=== PATIENT | male | born 1940 | race Native Hawaiian/Other Pacific Islander ===

== ENCOUNTER → 2017-01-18 | Outpatient (CLI) | payer MEDICARE | LOC: LAB.O 16:53 | PROVIDERS: ATTEND Psychiatry & Neurology Neurology | DX: Z01.812 Encounter for preprocedural laboratory examination (principal) ==

== ENCOUNTER → 2017-10-09 | Outpatient (CLI) | payer MEDICARE | END | disposition home or self-care (01) | LOC: GMAH 18:12 | PROVIDERS: ATTEND Family Medicine | DX: N39.0 Urinary tract infection, site not specified (principal) ==

== ENCOUNTER → 2017-10-24 | Outpatient (CLI) | payer MEDICARE | END | disposition home or self-care (01) | LOC: GMAH 10:32 | PROVIDERS: ATTEND Family Medicine | DX: Z12.5 Encounter for screening for malignant neoplasm of prostate (principal); E11.9 Type 2 diabetes mellitus without complications; E78.4 Other hyperlipidemia | CPT/HCPCS: 84443; 84550; G0103 ==

== ENCOUNTER → 2017-11-19 | Outpatient (CLI) | payer MEDICARE | LOC: NC 18:00 | PROVIDERS: ATTEND Family Medicine | DX: I48.91 Unspecified atrial fibrillation (principal) ==

== ENCOUNTER → 2017-11-27 | Outpatient (CLI) | payer MEDICARE | LOC: NC 12:07 | PROVIDERS: ATTEND Family Medicine | DX: I48.91 Unspecified atrial fibrillation (principal) ==

== ENCOUNTER → 2017-12-04 | Outpatient (CLI) | payer MEDICARE | LOC: NC 13:45 | PROVIDERS: ATTEND Family Medicine | DX: I48.2 Chronic atrial fibrillation (principal) ==

== ENCOUNTER → 2017-12-11 | Outpatient (CLI) | payer MEDICARE | LOC: NC 12:49 | PROVIDERS: ATTEND Family Medicine | DX: I48.2 Chronic atrial fibrillation (principal); E11.9 Type 2 diabetes mellitus without complications; I10 Essential (primary) hypertension; J44.9 Chronic obstructive pulmonary disease, unspecified ==

== ENCOUNTER → 2017-12-19 | Outpatient (CLI) | payer MEDICARE | LOC: NC 13:34 | PROVIDERS: ATTEND Family Medicine | DX: I48.2 Chronic atrial fibrillation (principal) ==

== ENCOUNTER 2017-12-25 15:25 | Inpatient (IN) | payer MEDICARE ==
[2017-12-25] MEDS ORDERED: METOPROLOL TARTRATE 50 MG TAB PO ONE (15:52)
[2017-12-25] MEDS ORDERED: SODIUM CHLORIDE 0.9% 1000ML 1,000 ML IVS ONE (15:52)
[2017-12-25] MEDS ORDERED: ONDANSETRON ODT 8 MG TAB SL ONE (15:52)
--- NOTE | 2017-12-25 17:07 | RAD ---
EXAM DESCRIPTION: Abdomen Series CLINICAL HISTORY: 77 years Male ,n/v/d COMPARISON: 08/31/2012. TECHNIQUE: Frontal view chest x-ray and two views of the abdomen. FINDINGS: The study is suboptimal from patient body habitus and underpenetration. Prominent cardiac silhouette. Bilateral pleural effusions which may be partially loculated. Atelectasis/infiltrate in the lungs. No pneumothorax. No free air is identified beneath the hemidiaphragms. There are several slightly prominent loops of small bowel visualized in the midabdomen which could be from ileus or obstruction. Vascular stents in the region of the bilateral common iliac arteries. Surgical clips in the right upper quadrant. IMPRESSION: Suboptimal study from patient body habitus and underpenetration. There appear to be several slightly prominent loops of bowel in the midabdomen which could be from ileus or obstruction. Bilateral pleural effusions which may be partially loculated. Atelectasis/infiltrate in the lungs. Electronically signed by: Lennox Muñiz MD 12/25/2017 5:06 PM CDT
--- NOTE | 2017-12-25 18:19 | CT ---
EXAM DESCRIPTION: Abdoment/Pelvis w/o Contrast (accession [id number]), Chest w/o Contrast (accession [id number]) CLINICAL HISTORY: 77 years Male abn abd series concerning for obstruction versus ileus, n/v/d, effusions COMPARISON: 02/14/2016. TECHNIQUE: Contiguous axial images obtained through the chest, abdomen and pelvis without IV contrast. Reformatted images obtained. This exam was performed according to our department optimization program which includes automated exposure control, adjustment of the mA and/or kv according to patient size and/or use of iterative reconstruction technique. FINDINGS: CHEST: Mild cardiac enlargement. Coronary and aortic calcification. Scattered small mediastinal lymph nodes. Hilar regions are suboptimally evaluated without contrast. Bronchial wall thickening. Large right and small left pleural effusion. There are patchy areas of groundglass density bilaterally with atelectasis in the lung bases. Multilevel degenerative change in the spine. Abdomen pelvis: There is a low-attenuation lesion in the left lobe of the liver measuring 1.4 cm which was not clearly identified on the patient's previous examination. It did appear to be present on the examination 12/31/2014 with some nodular enhancement suggesting hemangioma. Suspect additional hemangioma in the inferior aspect of the left lobes of the liver seen on prior examinations. These are not clearly seen on today's study. There is small amount of abdominal and pelvic ascites. The spleen and pancreas appear unremarkable. No adrenal masses. There is contrast in the renal collecting systems. This study is noncontrasted. That this patient have recent catheterization? There are innumerable bilateral renal cysts. Largest on the right measures 10.5 cm. The gallbladder is absent Vascular calcification. There are stents in the distal aorta and proximal iliac arteries bilaterally. Diverticulosis in the colon without evidence of diverticulitis. Small amount nonspecific stranding is present in the mesentery and presacral space. No evidence suggest ileus or obstruction. IMPRESSION: There are patchy bilateral pulmonary infiltrates with large right and small left pleural effusion and associated wall thickening in the bronchi. Findings may reflect infectious process or developing edema Cardiac enlargement Vascular calcification Abdominal and pelvic ascites Innumerable renal cysts Low-attenuation lesion in the left lobe of the liver which is indeterminant. This was present on the examination from 2014. Suspect hemangioma. There may be an additional hemangioma in the inferior aspect of the falciform ligament which was noted on previous examinations but appears to be isodense on today's examination Residual contrast in the renal collecting systems and urinary bladder. Did this patient have a recent contrasted examination or catheterization? No evidence suggest bowel obstruction or ileus Diverticulosis without evidence of diverticulitis Electronically signed by: Liset Muñiz MD 12/25/2017 6:17 PM CDT
--- NOTE | 2017-12-25 19:01 | ED.PDOC ---
History of Present Illness - General Chief Complaint: GI Problem Stated Complaint: Diarrhea, weakness Time Seen by Provider: 12/25/17 15:31 Source: patient, family Exam Limitations: clinical condition - History of Present Illness Initial Comments: The patient is 77-year-old male presenting to the emergency room secondary to nausea and vomiting starting around 2 AM this morning with some associated diarrhea. The patient did have a couple of episodes of both while here. He is currently being tested for C. difficile here. He denies any fevers or any real abdominal pain. He does have a known history of atrial fibrillation with RVR and significant CHF with persistent pulmonary effusions. He is feeling weak and unable to get around. He is arousable. He does have numerous long-term chronic physical changes from his diabetes. No fevers. No sore throat. No runny nose. He has had a mild cough that he has recently restarted smoking. Severity: moderate Improving Factors: nothing Worsening Factors: nothing Associated Symptoms: loss of appetite, malaise, weakness Allergies/Adverse Reactions: Allergies NO KNOWN ALLERGY Allergy (Verified 12/25/17 16:55) Home Medications: Ambulatory Orders ALPRAZolam [Xanax] 0.5 mg PO DAILY 12/25/17 Amlodipine Besylate-Atorvastat [Amlodipine Besylate/Atorv 5-80 mg] 2 tab PO DAILY 12/25/17 Atorvastatin Calcium [Lipitor] 40 mg PO BEDTIME 12/25/17 Bupropion HCl [Bupropion HCl Sr] 150 mg PO DAILY 12/25/17 Citalopram Hydrobromide [Celexa] 10 mg PO DAILY 12/25/17 Furosemide 40 mg PO BID 12/25/17 Metformin HCl 850 mg PO BID 12/25/17 Metoprolol Tartrate 50 mg PO BEDTIME 12/25/17 Metoprolol Tartrate 100 mg PO DAILY 12/25/17 Pantoprazole Tablet [Protonix] 40 mg PO DAILY 12/25/17 Potassium Chloride [K-Tab] 20 meq PO DAILY 12/25/17 Sitagliptin Phosphate [Januvia] 100 mg PO DAILY 12/25/17 Tamsulosin HCl [Flomax] 0.4 mg PO DAILY 12/25/17 glyBURIDE [Diabeta] 5 mg PO BID 12/25/17 Review of Systems - Review of Systems Constitutional: States: malaise, weakness EENTM: States: no symptoms reported Respiratory: States: cough, short of breath - which is more chronic Cardiology: States: no symptoms reported Gastrointestinal/Abdominal: States: diarrhea, nausea, vomiting Genitourinary: States: no symptoms reported Musculoskeletal: States: no symptoms reported Skin: States: no symptoms reported Neurological: States: no symptoms reported Endocrine: States: no symptoms reported All other Systems: No Change from Baseline Past Medical History (General) - Patient Medical History Hx Stroke: No Hx Cardiac Disorders: Yes - A fib Hx Congestive Heart Failure: Yes Hx Hypertension: Yes Hx Diabetes: Yes Hx Gastroesophageal Reflux: Yes - Social History Hx Tobacco Use: No Family Medical History - Family History Father Family History: Unknown Living Status: Physical Exam - Physical Exam General Appearance: Alert, No apparent distress, Other - the patient is very weak. 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 Ears, Nose, Throat: normal ENT inspection, normal pharynx Neck: full range of motion, supple Respiratory: other - Rales at bilateral bases. No real increased work of breathing. Cardiovascular/Chest: no edema, tachycardia - rregular Peripheral Pulses: radial,right: 2+, radial,left: 2+ Gastrointestinal/Abdominal: non tender - morbidly obese, soft Rectal Exam: deferred Back Exam: no CVA tenderness, no vertebral tenderness Extremity: normal range of motion - for this patient, non-tender, no calf tenderness, pedal edema - =1 bilaterally Neurologic: alert, normal mood/affect, oriented x 3 Skin Exam: warm/dry Comments: Vital Signs - 24 hr 12/25/17 12/25/17 12/25/17 15:25 16:49 17:25 Temperature 95.8 F L Pulse Rate [ 140 H 141 H 135 H Left Radial] Respiratory 22 22 22 Rate Blood Pressure 147/98 154/93 144/87 [Right Arm] O2 Sat by Pulse 96 97 98 Oximetry Progress - Progress Progress: 12/25/17 19:05 the patient's a 77-year-old male presenting to the emergency room secondary to nausea and vomiting and diarrhea starting this morning. He does have numerous long-term medical problems that are significant comorbidities and in combination with this problem have essentially incapacitated him. He has received approximately 600 cc of IV fluids in compensation. We are stopping here as he does have significant CHF issues. He did receive a dose of oral metoprolol here which has slowed his heart rate down from the 140s down to around 100. He has not received any diuretics. Changes seen on the CT scan of the chest are more consistent with a CHF than a pneumonia. He has not exhibited any fevers. The patient will be admitted for observation for control of symptoms of nausea vomiting and diarrhea. Urinalysis is still pending. C. difficile is still pending. The patient will need to be reassessed in the morning to determine his functional status to see if he will be able to go back home or not. Admit for further care. No antibiotics have been given at this point. - Results/Orders Results/Orders: Laboratory Tests 12/25/17 12/25/17 12/25/17 16:00 16:00 16:00 WBC 8.3 RBC 4.87 Hgb 11.6 L Hct 36.7 L MCV 75.4 L MCH 23.8 L MCHC 31.6 L RDW 17.1 H Plt Count 302 MPV 9.5 Absolute Neuts (auto) 6.90 H Absolute Lymphs (auto) 0.90 L Absolute Monos (auto) 0.60 Absolute Eos (auto) 0.00 Absolute Basos (auto) 0.00 Neutrophils % 82.5 H Lymphocytes % 10.3 L Monocytes % 7.0 Eosinophils % 0.0 L Basophils % 0.2 PT 18.1 H INR 1.610 PTT (SP) 30.6 Sodium 138 Potassium 3.7 Chloride 104 Carbon Dioxide 25 Anion Gap 12.7 BUN 18 Creatinine 0.87 BUN/Creatinine Ratio 20.7 H Random Glucose 176 H Serum Osmolality 281.9 Calcium 9.1 Magnesium 1.8 Total Bilirubin 1.3 H AST 18 ALT 22 Alkaline Phosphatase 57 Creatine Kinase 24 L CK-MB (CK-2) 1.6 CK-MB (CK-2) % Not Reportable Troponin I < 0.02 B-Natriuretic Peptide 755.0 H* Serum Total Protein 7.4 Albumin 3.3 Globulin 4.1 H Albumin/Globulin Ratio 0.8 L Amylase 25 L Lipase 25 urinalysis is still pending. C. difficile is still pending. EKG shows atrial fibrillation with RVR at a rate of 122 bpm. He does have a mild incomplete right bundle branch block. 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 He does have T-wave inversions in leads 1 and aVL. I have no previous EKG for comparison. He does have a known history of atrial fibrillation. He is not having any chest pain. Chest x-ray shows the possibility of loculated effusions. He does have cardiomegaly. Abdominal x-ray shows possibility of a small segment of mild ileus versus obstruction. CT scan of the chest shows a large right pleural effusion and a small left pleural effusions. He does have very mild scattered patchy infiltrates could be consistent with pulmonary edema. He does have cardiomegaly.CT scan of abdomen and pelvis shows no evidence of any obstruction or ileus. He does have a small amount of ascites. He has a questionable new 1.4 cm hemangioma in the liver. He has known large chronic bilateral renal cysts. There is possibly some very mild mesentery inflammation down towards the sacrum. Departure - Departure Clinical Impression: Gastroenteritis Congestive heart failure Qualifiers: Congestive heart failure type: unspecified congestive heart failure type Congestive heart failure chronicity: acute on chronic Qualified Code(s): I50.9 - Heart failure, unspecified Disposition: Admit Patient Referrals: Pawel Cardenas MD [Primary Care Provider] - 1-2 Weeks Home Medications: Ambulatory Orders ALPRAZolam [Xanax] 0.5 mg PO DAILY 12/25/17 Amlodipine Besylate-Atorvastat [Amlodipine Besylate/Atorv 5-80 mg] 2 tab PO DAILY 12/25/17 Atorvastatin Calcium [Lipitor] 40 mg PO BEDTIME 12/25/17 Bupropion HCl [Bupropion HCl Sr] 150 mg PO DAILY 12/25/17 Citalopram Hydrobromide [Celexa] 10 mg PO DAILY 12/25/17 Furosemide 40 mg PO BID 12/25/17 Metformin HCl 850 mg PO BID 12/25/17 Metoprolol Tartrate 50 mg PO BEDTIME 12/25/17 Metoprolol Tartrate 100 mg PO DAILY 12/25/17 Pantoprazole Tablet [Protonix] 40 mg PO DAILY 12/25/17 Potassium Chloride [K-Tab] 20 meq PO DAILY 12/25/17 Sitagliptin Phosphate [Januvia] 100 mg PO DAILY 12/25/17 Tamsulosin HCl [Flomax] 0.4 mg PO DAILY 12/25/17 glyBURIDE [Diabeta] 5 mg PO BID 12/25/17 Decision To Admit - Decistion To Admit Decision to Admit Reason: Medical Nature Decision to Admit Date: 12/25/17 Decision to Admit Time: 19:08
--- NOTE | 2017-12-25 19:56 | HP ---
SUPERVISING PHYSICIAN: Felice Allen MD CHIEF COMPLAINT: Nausea, vomiting and diarrhea. HISTORY OF PRESENT ILLNESS: Mr. Zapata is a 77-year-old, male patient who presented to the Emergency Room today due to ongoing nausea and vomiting that started around 2 AM early this morning with some associated diarrhea. The was present at the time of admission and was the primary historian. She notes that the patient developed symptoms early this morning and became weaker throughout the day. She brought him to the Emergency Department due to the ongoing nausea with weakness as she was unable to assist with any lifting at home and she has had recent back surgery. The patient was denying any abdominal pain and no fevers were reported. He does have a history of recently being diagnosed with atrial fibrillation on metoprolol. Apparently, the patient had not taken any medications due to the nausea and was unable to hold any medications down, including the beta mohan which he takes for rate control. Initially when he presented to the Emergency Room, he was showing atrial fibrillation with rapid ventricular response with a rate of 122 beats per minute. He also has a history of multiple comorbidities and severe peripheral arterial disease and congestive heart failure. He has persistent pleural effusions and has actually had an aortic valve replacement and thoracotomy on the left in the past. He does currently smoke approximately one pack of cigarettes a day as he has those available. He has had multiple stents and coronary artery bypass graft as well. He does take Coumadin for his atrial fibrillation along with beta mohan. In the Emergency Room, he was found to be somewhat lethargic, but arousable and notably weak. He denied any fevers, sore throat, runny nose, shortness of breath. His laboratory studies showed he had a normal white count, but development of a left shift. Chemistries showed normal electrolytes and renal function, but elevated beta natriuretic peptide at 755. In the Emergency Room, he continued to have some nausea which did resolve nicely with some Zofran. Given that he was having a significant amount of diarrhea, a C. difficile was completed which was negative for both antigen and toxin. He then had radiographic studies that included initially an abdominal x-ray that was concerning for possible ileus or obstruction. Given his underlying comorbidities and current symptoms, an abdominopelvic CT was performed without contrast as well as CT of the chest. Per radiologic interpretation, findings were notable for patchy bilateral pleural infiltrates, larger on the right than the left, with some abdominopelvic ascites, but no evidence of bowel obstruction or ileus and no evidence of diverticulitis. Given the patient's severe weakness and lethargy and the fact that he is unable to function without a great deal of assistance, the patient is going to be placed in observation for IV fluids with concerns for viral gastroenteritis complicated by multiple comorbidities. He is placed in observation in stable condition. PAST MEDICAL HISTORY: 1. Diabetes mellitus, type 2, on insulin and oral therapy. 2. Atrial fibrillation on chronic Coumadin therapy. 3. Hypertension. 4. Peripheral vascular disease. 5. Peripheral arterial disease. 6. Cerebrovascular accident in 2008 with no reported residual effects. 7. Hyperlipidemia. 8. Chronic congestive heart failure with no current echocardiogram for review. 9. Cardiovascular disease with multiple stents, coronary artery bypass graft and a valve replacement. 10. Bladder cancer with surgical treatment with cure. 11. Gastroesophageal reflux disease. 12. Dementia. PAST SURGICAL HISTORY: 1. Tonsillectomy. 2. Cholecystectomy. 3. Bilateral iliac stents. 4. Bladder surgery for bladder cancer. 5. Multiple anal abscesses in the past. 6. Rhinoplasty for deviated septum. 7. Coronary artery bypass graft in 2008. 8. Aortic valve replacement with an Edward pericardial valve. 9. Left thoracotomy for pleural mass with no evidence of malignancy. 10. Cryoablation of intercostal nerves in conjunction with left thoracotomy for pain control. MEDICAL PROVIDERS: Cardiothoracic surgeon - Dr. Murray Chand in [place] Ex Assistant/Program Director - Dr. Isra Duffy in [place] Neurologist - Dr. Michael Aguilera, [place] Primary care physician - Dr. Pawel Cardenas [facility] care - [facility] MEDICATIONS: 1. Aricept 1 daily. 2. Fish oil 1000 mg 1 daily. 3. Cetirizine 10 mg daily. 4. Aspirin 325 mg daily. 5. Multivitamin 1 tablet daily. 6. Ascorbic acid 500 mg daily. 7. Coenzyme Q10 100 mg daily. 8. Amlodipine-valsartan 10-160 mg 1 daily. 9. Bupropion 150 mg daily. 10. Januvia 100 mg daily. 11. Xanax 0.5 mg daily. 12. DiaBeta 5 mg b.i.d. 13. Metoprolol 50 mg at bedtime. 14. Metoprolol 100 mg daily. 15. Lipitor 40 mg at bedtime. 16. K-tab 20 mEq daily. 17. Lasix 40 mg b.i.d. 18. Flomax 0.4 mg daily. 19. Metformin 850 mg b.i.d. 20. Protonix 40 mg daily. 21. Warfarin 5 mg Vwtgnh-Gnmsyow-Gfcsgykyi--Sunday. 22. Warfarin 7.5 mg Sunday-Sunday. 23. Novolin R sliding scale. ALLERGIES: NO KNOWN DRUG ALLERGIES. FAMILY HISTORY: Positive for diabetes, hypertension, cancers including prostate cancer in his father, cardiovascular disease, peripheral vascular disease. SOCIAL HISTORY: The patient lives in [place], [place]. He is . He is retired from [employer] in [place]. He does currently smoke approximately one pack a day and has for over 50 years. He drinks on rare occasions and only beer. REVIEW OF SYSTEMS: Primarily obtained from the patient's as the patient is a poor historian. CONSTITUTIONAL: Reports he has had some generalized weakness and malaise that has been worsening over the last several weeks. The patient has had approximately 15 to 20 pound weight loss in the last several months, but due to purposeful change in diet and exercising. HEENT: No reported earaches, sore throats, nasal congestion. RESPIRATORY: Chronic chronic related to smoking. No notable dyspnea or wheezing. CARDIOVASCULAR: No reported chest pain. He does have a history of atrial fibrillation. GASTROINTESTINAL: As noted in history of present illness, diarrhea, nausea and vomiting that started at 2 o'clock this morning. GENITOURINARY: Denies dysuria, hematuria or other urinary symptoms. NEUROLOGIC: No reported neurologic deficits, syncopal episodes, dizziness, ataxia. PHYSICAL EXAMINATION: VITAL SIGNS: Initially in the Emergency Department, the patient was afebrile with temperature 97.5. Heart rate 140, irregular. Blood pressure 147/98. Saturation 96% on room are. Respirations 22. On admission to the Medical/ Surgical Floor after being given metoprolol, temperature 98.9. Heart rate 98. Blood pressure 146/94. Respirations 18. Saturation 98% on 3 liters nasal cannula at rest. Admission weight 101.3. GENERAL: On examination on the Medical/Surgical Floor, the patient was resting, appeared to be in no acute distress. He was easily arousable, but is obviously hard of hearing. reports that he is at his normal baseline status in regard to his responsiveness. HEENT: Tympanic membranes clear bilaterally. Oropharynx is pink, moist without any lesions. NECK: Supple with full range of motion. No jugular venous distention noted. RESPIRATORY: There were some faint rales noted bilaterally in the bases with some decreased sounds, but no wheezing or rhonchi. CARDIOVASCULAR: Irregular rate with bedside monitor showing 98 with atrial fibrillation. ABDOMEN: Obese, soft, nontender. Positive bowel sounds. EXTREMITIES: He does have pedal edema bilaterally which is 1+ which his reportedly chronic. NEUROLOGIC: The patient is drowsy, but easily arousable and is alert and oriented times three with no obvious neurologic deficits. Cranial nerves II- XII are grossly intact. Facial features are symmetrical. Extraocular movements are within normal limits. There is no nystagmus noted. He moves all extremities ad emelina. LABORATORY: CBC on admission showed white count 8,300, hemoglobin 11.6, hematocrit 36.7, RBC indices shoe a hypochromic/microcytic presentation with platelet count 302,000, differential with left shift. Coagulation studies showed a nontherapeutic INR of 1.61 with PT 18.1, PT-T 30.6. Chemistries showed normal electrolytes with potassium 3.7, BUN 18, creatinine 0.87, glucose 176, calcium 9.1, magnesium 1.8, bilirubin slightly elevated at 1.3. All other liver functions within normal limits. Troponin less than 0.02. Elevated BNP at 755. Amylase and lipase within normal limits. Urinalysis showed 80 ketones , small amount of bilirubin, otherwise within normal limits with microscopic also within normal limits. MICROBIOLOGY: Stool cultures pending. Stool for Clostridium difficile toxin A and B was negative. RADIOLOGY: CT of the abdomen and pelvis and chest without contrast along with initial abdominal x-ray indicating a possible ileus or obstruction or CT per radiologic interpretation showing patchy bilateral pulmonary infiltrates with a large right and small left pleural effusion, associated wall thickening in the bronchi with cardiac enlargement and low attenuation lesions in the left lobe of the liver which are indeterminate, suspect possible hemangioma. There was no evidence to suggest bowel obstruction or ileus and there was diverticulosis without any evidence of diverticulitis. EKG showed atrial fibrillation with rapid ventricular response with a rate of 122 which what appears to be a incomplete right bundle branch block with some mild T-wave inversions in leads 1 and AVL, but no past EKGs for comparison with the patient having a history of atrial fibrillation and no reported current chest pains. ASSESSMENT: 1. Nausea, vomiting and diarrhea without any reported abdominal pains, acute onset, felt to be possibly secondary to a viral gastroenteritis. 2. Acute on chronic atrial fibrillation with rapid ventricular response on admission secondary to inability to hold oral medications down to include beta blockers due to #1. 3. Hypertension, poorly controlled. 4. Peripheral arterial disease with multiple lower extremities stents including bilateral iliac stents. 5. Chronic congestive heart failure with elevated beta natriuretic peptide, concerning for an exacerbation with the patient having no current echocardiogram for review and a history of previous aortic valve replacement with chronic bilateral pedal edema. 6. Hyperlipidemia. 7. Gastroesophageal reflux disease. 8. Mild dehydration secondary to #1, requiring IV fluids and close monitoring. 9. Subtherapeutic Coumadin level with the patient having a history of atrial fibrillation and on chronic Coumadin. 10. Microcytic/hypochromic anemia, likely secondary to chronic illness. 11. Left shift without any evidence of leukocytosis, likely secondary to a stress response demargination from nausea and vomiting with current stool studies negative for Clostridium difficile and stool cultures pending. 12. History of bladder cancer with surgical cure. 13. History of aortic valve replacement with an Rodrigez pericardial valve in 2008. 14. History of a left thoracotomy due to a pleural mass which was noted on pathology to be without any evidence of malignancy along with cryoablation of intercostal nerves for pain control. 15. Chronic tobacco abuse. PLAN: The patient is going to be placed in observation tonight for initiation of fluids, cautiously given his past history of congestive heart failure and elevated BNP, but showing to be vascularly dry. He was given initial bolus in the Emergency Room of 600 mL normal saline. We will restart his medications including his beta mohan which was initially given 50 mg of metoprolol in the Emergency Room that resulted in a significant decrease in heart rate and assisting with control of his ventricular rate given that he has had difficulty holding his medications down today. We will plan to repeat his laboratory in the morning. We will have him on insulin sliding scale as per protocol. We will resume his home medications as they are updated and verified and appropriate for administration. He will be on DVT prophylaxis as well as he is already on Coumadin therapy, but is not therapeutic. We will repeat a PT in the morning and if not therapeutic we will certainly initiate Lovenox as he transitions to a more therapeutic Coumadin level. We will get him a nicotine patch in the morning once he is no longer having significant nausea and vomiting. We will give him an initial clear liquid diet and advance his diet as tolerated. We will await stool cultures. We will hold off on antibiotic treatment at this point with no evidence of an infectious process other than possible viral gastroenteritis. We will anticipate his length of stay to be at least one to two days until clinically stable. We will also need to get a physical therapy evaluation to further assess his capability of returning back home safely as he is limited in his mobility and is currently being cared for with physical therapy in the outpatient setting through [facility]. It also should be noted that his is unable to assist him to any degree as she has recently had back surgery. Hopefully the patient will show good clinical response and improve significantly and be able to be discharged tomorrow or the next day. Until then, we will continue to monitor the patient closely and treat appropriately. #[id number] [facility]
[2017-12-25] MEDS ORDERED: GLUCAGON INJ 1 MG VIAL SUBCU PRN (20:48)
[2017-12-25] MEDS ORDERED: SODIUM CHLORIDE 0.9% (FLUSH) 10 ML SYG IV PRN (20:48)
[2017-12-25] MEDS ORDERED: DEXTROSE 50% 25 GM/50 ML SYG IV PRN (20:48)
[2017-12-25] MEDS ORDERED: ONDANSETRON INJ 4 MG/2 ML VIAL IV PRN (20:48)
[2017-12-25] MEDS ORDERED: ACETAMINOPHEN 325 MG TAB PO PRN (20:48)
[2017-12-25] MEDS ORDERED: NON-FORMULARY MEDICATION 1 EA MIS (Atorvastatin Calcium [Lipitor] 40 MG) PO SCH (21:00)
[2017-12-25] MEDS ORDERED: ATORVASTATIN 20 MG TAB PO ONE (21:05)
[2017-12-25] MEDS ORDERED: METOPROLOL TARTRATE 25 MG TAB ONE (21:05)
[2017-12-25] MEDS: IV SET AND CAP CHANGE INJ INJ SCH (21:07)
[2017-12-25] MEDS: METOPROLOL TARTRATE 50 MG TAB PO SCH (21:09)
[2017-12-25] MEDS: INSULIN LISPRO 100 UNITS/ML PEN SUBCU SCH (21:09)
[2017-12-25] MEDS ORDERED: KCL 20 MEQ/NS 1,000 ML IVS PRN (22:46)
[2017-12-25] MEDS: ASPIRIN TABLET 325 MG TAB PO SCH (23:10)
--- NOTE | 2017-12-25 23:27 | PCM.CORE ---
Physician DVT/VTE - Prophylaxis Currently: Patient already on anticoagulation therapy - Nurse DVT Assessment & Total Each Risk Factor Represents 3 Points: Age over 75 years, Medical PT with Hx of AL, CHF, Severe infection/sepsis Each Risk Factor Represents 1 Point: Hx of smoking past year Each Risk Factor is 1 Point: Obesity (BMI >25) DVT Assessment Score: 8 - 5 or more Very High Risk Treatments: Early Ambulation *, Sequential Compression Device Pharmacological: Warfarin daily
[2017-12-26] MEDS: INSULIN LISPRO 100 UNITS/ML PEN SUBCU SCH ×4 (07:53→20:54)
[2017-12-26] MEDS ORDERED: ENOXAPARIN SODIUM 40 MG/0.4 ML SYG SUBCU ONE (08:07)
[2017-12-26] MEDS ORDERED: AMLODIPINE BESYLATE VALSARTAN PO SCH (09:00)
[2017-12-26] MEDS ORDERED: [UNRECOGNIZED DRUG - OTHER] PO SCH (09:00)
[2017-12-26] MEDS ORDERED: ALPRAZolam 0.5 MG TAB PO SCH (09:00)
[2017-12-26] MEDS ORDERED: [UNRECOGNIZED DRUG - OTHER] PO SCH (09:00)
[2017-12-26] MEDS ORDERED: FUROSEMIDE 40 MG TAB PO SCH (10:00)
[2017-12-26] MEDS ORDERED: PANTOPRAZOLE SODIUM TAB 40 MG PO ONE (10:07)
--- NOTE | 2017-12-26 10:30 | RAD ---
EXAM DESCRIPTION: Chest,1 View CLINICAL HISTORY: Congestive heart failure COMPARISON: Chest radiograph dated August 31, 2012 IMPRESSION: Single upright portable AP view of the chest. Post cardiac valve replacement surgery with median sternotomy wires. Cardiac silhouette shows cardiomegaly with central pulmonary vascular congestion and interstitial edema. Increased hazy opacity in the bilateral lower lung zones, most compatible with pulmonary edema. Underlying infiltrate cannot be excluded. Suspected small to moderate bilateral pleural effusion. No pneumothorax. IMPRESSION: 1. Cardiomegaly with central pulmonary vascular congestion, and interstitial edema compatible with congestive heart failure. 2. Increased opacity in the bilateral lower lung zones, most compatible with pulmonary edema. Underlying infiltrate cannot be excluded. Electronically signed by: Rodney Ovalle MD 12/26/2017 10:27 AM CDT
[2017-12-26] MEDS: VALSARTAN 80 MG TAB PO SCH (10:42)
[2017-12-26] MEDS: PANTOPRAZOLE SODIUM TAB 40 MG PO SCH (10:43)
[2017-12-26] MEDS: DONEPEZIL HCL 5 MG TAB PO SCH (10:43)
[2017-12-26] MEDS: METOPROLOL TARTRATE 50 MG TAB PO SCH ×2 (10:43→20:32)
[2017-12-26] MEDS: ASCORBIC ACID 500 MG TAB PO SCH (10:43)
[2017-12-26] MEDS: amLODIPine BESYLATE 5 MG TAB PO SCH (10:43)
[2017-12-26] MEDS: TAMSULOSIN 0.4 MG CAP PO SCH (10:43)
[2017-12-26] MEDS: glyBURIDE 5 MG TAB PO SCH ×2 (10:43→16:59)
[2017-12-26] MEDS: SITagliptin 50 MG TAB PO SCH (10:43)
[2017-12-26] MEDS: POTASSIUM CHLORIDE 20 MEQ TAB PO SCH (10:43)
[2017-12-26] MEDS: CETIRIZINE HCL 10 MG TAB PO SCH (10:43)
[2017-12-26] MEDS: ASPIRIN TABLET 325 MG TAB PO SCH (10:46)
[2017-12-26] MEDS: CITALOPRAM HBR 20 MG TAB PO SCH (10:47)
[2017-12-26] MEDS ORDERED: LEVALBUTEROL NEBS 1.25 MG/3 ML VIAL NEB PRN (11:35)
[2017-12-26] MEDS ORDERED: FUROSEMIDE INJ 40 MG/4 ML VIAL IV ONE ×2 (11:37→17:00)
[2017-12-26] MEDS ORDERED: SODIUM CHL 0.9% 50ML MIN-BAG+ 50 ML IVPB ONE ×2 (11:53→20:02)
[2017-12-26] MEDS ORDERED: cefTRIAXone SODIUM 1 GM VIAL ONE ×2 (11:54→20:03)
[2017-12-26] MEDS ORDERED: WARFARIN SODIUM 2.5 MG TAB ONE (11:54)
[2017-12-26] MEDS ORDERED: WARFARIN SODIUM 5 MG TAB ONE (11:54)
[2017-12-26] MEDS ORDERED: WARFARIN SODIUM 7.5 MG PO SCH (12:00)
[2017-12-26] MEDS: cefTRIAXone SODIUM 1 GM in SODIUM CHL 0.9% 50ML MIN-BAG+ 50 ML IVPB SCH ×2 (12:04→23:55)
[2017-12-26] MEDS: guaiFENesin ER TAB 600 MG TAB PO SCH ×2 (12:04→20:31)
[2017-12-26] MEDS: WARFARIN SODIUM PO SCH ×2 (12:04)
[2017-12-26] MEDS ORDERED: SODIUM CHLORIDE 0.9% 250ML 250 ML ONE (12:50)
[2017-12-26] MEDS ORDERED: AZITHROMYCIN IV 500 MG VIAL IVPB ONE (12:50)
[2017-12-26] MEDS: AZITHROMYCIN IV 500 MG in SODIUM CHLORIDE 0.9% 250ML 250 ML IVPB SCH (13:18)
--- NOTE | 2017-12-26 13:44 | PN ---
SUPERVISING PHYSICIAN: Felice Allen MD DATE: 12/26/17 SUBJECTIVE: The patient feels a little bit better this morning. He is much more alert and was able to get up to the bedside commode with assistance. He reports he has had a little bit of shortness of breath and a more productive cough than when he came in, but no chest pains or palpitations or any continued nausea or vomiting. He had one episode of diarrhea this morning. He does remain afebrile. OBJECTIVE: VITAL SIGNS: Temperature 99.9. Pulse 104. Blood pressure 116/70. Respirations 20. Saturation 96% on nasal cannula at rest on 2 liters. I&Os show positive balance of 600 with 1150 in, 550 out. Weight 101.3 kg. CHEST: He continues to have decreased breath sounds with some rhonchi heard, more prominent on the right than the left and more posterior. No wheezing or rales. HEART: Regular rate and rhythm showing a better controlled rate with monitor showing continued atrial fibrillation at 104 beats per minute. ABDOMEN: Obese, but soft and nontender. Positive bowel sounds. No rebound tenderness, no guarding. EXTREMITIES: Bilateral pedal edema at 1+. NEUROLOGIC: He is much more alert this morning and is oriented times three. LABORATORY: White count 10,700 with hemoglobin 11.4 and hematocrit 36.7 with a microcytic/hypochromic presentation and a platelet count of 307,000 with a differential showing a continued left shift. Coagulation studies this morning show INR still nontherapeutic at 1.66 with PT 18.7. Chemistries show normal electrolytes with potassium 3.9, BUN 18, creatinine 0.75. Blood sugars have been between 150 and 182. Calcium 9.0, bilirubin still elevated at 1.4. Liver functions all otherwise within normal limits. MICROBIOLOGY: Blood cultures pending. Stool cultures pending. One stool for leukocyte esterase which was positive and C. difficile toxin A and B was negative. RADIOLOGY: Repeat chest x-ray this morning per radiologic interpretation shows cardiomegaly with central pulmonary vascular congestion and interstitial edema pattern with congestive heart failure and increased opacities in the bilateral lower lung lacey, most compatible with pulmonary edema, but underlying infiltrate cannot be excluded. ASSESSMENT: 1. Nausea, vomiting and diarrhea on admission without any abdominal pains, acute onset, likely secondary to a viral gastroenteritis, showing some slight improvement with initiation of treatment to include IV fluids. 2. Acute on chronic atrial fibrillation with rapid ventricular response on admission secondary to inability to hold oral medications down to include beta blockers due to #1, showing better control now with continued beta mohan administration including metoprolol. 3. Bilateral pleural effusions, consistent with pulmonary edema, but unable to fully exclude infiltrative process which would be concerning for community acquired pneumonia with the patient showing a more productive cough. 4. Hypertension, poorly controlled. 5. Peripheral arterial disease with multiple lower extremity stents including bilateral iliac stents. 6. Chronic congestive heart failure with elevated beta natriuretic peptide on admission with radiographic studies indicating some pulmonary edema with concerns for exacerbation with the patient having no current echocardiogram for review, but having a history of previous aortic valve replacement with chronic bilateral pedal edema with a new onset in the last month of atrial fibrillation. 7. Hyperlipidemia. 8. Gastroesophageal reflux disease. 9. Mild dehydration secondary to #1, showing some improvement, but requiring close close monitoring due to underlying congestive heart failure exacerbation. 10. Subtherapeutic Coumadin level with the patient having a history of atrial fibrillation and on chronic Coumadin, requiring initiation of Lovenox while the patient becomes more therapeutic. 11. Microcytic/hypochromic anemia, likely secondary to chronic illness. 12. History of bladder cancer with surgical cure. 13. History of aortic valve replacement with an Rodrigez pericardial valve in 2008. 14. History of a left thoracotomy due to a pleural mass which was noted on pathology report to be without any evidence of malignancy along with cryoablation of intercostal nerves for pain control in 2008. 15. History of coronary artery bypass graft in 2008. 16. Chronic tobacco abuse. PLAN: Given the findings on x-ray and the productive cough with some mild shortness of breath, we will go ahead and initiate treatment for concern for an underlying pneumonia process, likely community acquired. He will be started on antibiotics to include Rocephin and azithromycin as well as bronchodilators with Xopenex and bronchial hygiene with chest percussive therapy and incentive spirometry. He has been started on Lovenox 40 mg q.24h. as he continues to be below therapeutic levels in regard to his Coumadin levels. We will continue to monitor his Coumadin and administer 7.5 mg a day and change treatment plan with Lovenox once the patient has become more therapeutic. We will still awaiting physical therapy assessment today, but the patient was able to actually get up with maximum assist to the bedside commode. We will await stool cultures to further target antibiotic therapy as needed based on those results and monitor blood cultures closely as well as sputum cultures. He will be saline locked today and started on a little more aggressive diuresis with Lasix to include in addition to his p.o. medicine this morning, additional 40 IV and another 40 at 1700 and reevaluate in the morning to assist in treatment of the underlying congestive heart failure exacerbation and bilateral pleural effusions. We will anticipate at least another 24 hours of observation with consideration of possible full admission criteria as the patient has shown some further clinical complications with questionable pneumonia and multiple comorbidities requiring initiation of antibiotic therapy. Until discharge, we will continue to monitor the patient closely and treat appropriately. Certainly if the patient is clinically stable enough tomorrow, anticipate possibly discharging to have close clinical followup with Dr. Cardenas, his primary care provider. #[id number] [facility]
[2017-12-26] MEDS: LEVALBUTEROL NEBS 1.25 MG/3 ML VIAL NEB SCH ×2 (15:45→23:50)
[2017-12-26] MEDS: NON-FORMULARY MEDICATION 1 EA MIS (Metformin Hcl [Metformin Hcl] 850 MG) PO SCH (16:59)
[2017-12-26] MEDS: ATORVASTATIN 20 MG TAB PO SCH (20:31)
[2017-12-26] MEDS: ALPRAZolam 0.5 MG TAB PO SCH (20:32)
[2017-12-27] MEDS: PANTOPRAZOLE SODIUM TAB 40 MG PO SCH (06:30)
--- NOTE | 2017-12-27 07:09 | RAD ---
EXAM: AP CHEST RADIOGRAPH CLINICAL INDICATION: Respiratory distress. Mechanical ventilation. Evaluate lines and tubes. COMPARISON: Compared to yesterday's chest radiograph performed at 1007 hours. FINDINGS: Cardiac size remains enlarged. Improving pulmonary congestion and right pleural effusion. Unchanged sequela of remote cardiac surgery with intact sternal wire sutures. IMPRESSION: Improving probable congestive failure. No pneumothorax. Electronically signed by: Edwin Elise MD 12/27/2017 7:07 AM CDT
[2017-12-27] MEDS: INSULIN LISPRO 100 UNITS/ML PEN SUBCU SCH ×4 (07:33→20:57)
[2017-12-27] MEDS: glyBURIDE 5 MG TAB PO SCH ×2 (08:21→16:53)
[2017-12-27] MEDS: POTASSIUM CHLORIDE 20 MEQ TAB PO SCH ×2 (08:21→16:53)
[2017-12-27] MEDS: NON-FORMULARY MEDICATION 1 EA MIS (Metformin Hcl [Metformin Hcl] 850 MG) PO SCH ×2 (08:21→16:53)
[2017-12-27] MEDS ORDERED: NON-FORMULARY MEDICATION 1 EA MIS (Alprazolam [Alprazolam Er] 0.5 MG) PO SCH (09:00)
[2017-12-27] MEDS: SITagliptin 50 MG TAB PO SCH (09:11)
[2017-12-27] MEDS: ASCORBIC ACID 500 MG TAB PO SCH (09:11)
[2017-12-27] MEDS: CETIRIZINE HCL 10 MG TAB PO SCH (09:12)
[2017-12-27] MEDS: VALSARTAN 80 MG TAB PO SCH (09:12)
[2017-12-27] MEDS: ASPIRIN TABLET 325 MG TAB PO SCH (09:12)
[2017-12-27] MEDS: DONEPEZIL HCL 5 MG TAB PO SCH (09:12)
[2017-12-27] MEDS: METOPROLOL TARTRATE 50 MG TAB PO SCH ×2 (09:12→20:57)
[2017-12-27] MEDS: TAMSULOSIN 0.4 MG CAP PO SCH (09:12)
[2017-12-27] MEDS: amLODIPine BESYLATE 5 MG TAB PO SCH (09:12)
[2017-12-27] MEDS: CITALOPRAM HBR 20 MG TAB PO SCH (09:12)
[2017-12-27] MEDS: guaiFENesin ER TAB 600 MG TAB PO SCH ×2 (09:12→20:57)
[2017-12-27] MEDS: LEVALBUTEROL NEBS 1.25 MG/3 ML VIAL NEB SCH ×2 (09:58→15:58)
[2017-12-27] MEDS: BIFIDOBACTERIUM INFANTIS 4 MG CAP PO SCH ×2 (10:28→20:57)
[2017-12-27] MEDS: FUROSEMIDE 40 MG TAB PO SCH ×2 (10:28→16:53)
--- NOTE | 2017-12-27 11:05 | PN ---
DATE: 12/27/17 SUBJECTIVE: The patient is sitting up in the bed with some elevated jugular venous distention persisting though stating that his breathing is slightly better after significant diuresis was assisted by placement of a Stanley catheter because of bladder outlet obstructive symptoms. Stanley was placed last evening and over 600 mL of fluid was removed with the patient unable to pass any large amounts and requiring the catheterization to help remedy the obstructive uropathy. Appetite is only fair. He lives at home with his who has significant disabilities having had back surgery in the past. In transferring the patient to a bedside commode for a bowel movement, he required a 3-person assist. He was quite dyspneic and was on 3 liters nasal cannula oxygen and was eventually noted even on 3 liters to have only a 96% saturation. We will continue to monitor and titrate oxygen use to shoot for the 92% or 93% instead of higher saturations. The patient still has some cough, but slightly improved. OBJECTIVE: VITAL SIGNS: Afebrile. Pulse is up to 135 with a rapid atrial fibrillation noted, showing some slight slowing as he receives his morning dose of medicines. Rhythm is that of an atrial fibrillation with a rapid ventricular rate. Blood pressure 138/92. Saturation up to 100% nasal cannula, adjusted from 3 liters down to 2 with continued followup suggested. LUNGS: Some expiratory slowing with history of chronic obstructive pulmonary disease from chronic smoking as well as congestive heart failure. HEART: Tones are somewhat distant, rapid, irregular rate with atrial fibrillation with rapid ventricular response on rhythm strips on telemetry. ABDOMEN: Slightly distended. The patient needing to go to the bathroom, but having difficulty passing stool. Less diarrhea stools noted. Stool culture is pending. RADIOLOGY: Chest x-ray shows some improvement from yesterday with less congestive failure with pulmonary edema noted and no pneumothorax. LABORATORY: INR is up to 2.2 from 1.66 yesterday after reinstituting his Coumadin and these will be reinstituted at his home levels with close followup suggested. White count is up o 12,100. Hemoglobin 10.7 with a microcytic/ hypochromic presentation. Chemistries do show potassium 3.7, BUN 14, glucose 90 fasting. Liver enzymes normal. Albumin 3.2. Urinalysis yesterday was generally clean. As stated before sputum culture and stool culture are pending with blood cultures negative to this point. Fecal leukocytes are positive. ASSESSMENT: 1. Chronic congestive heart failure with an acute exacerbation with elevated beta natriuretic peptide and pulmonary edema with elevated jugular venous distention present, showing some radiographic and clinical improvement. Undetermined etiology. Awaiting echocardiographic review. 2. Acute episode of nausea, vomiting and diarrhea with abdominal discomfort, possible viral gastroenteritis, showing some clinical improvement after GI rest and IV fluid support, now with dietary intervention and cutting back on fluids because of pulmonary edema state. 3. Chronic atrial fibrillation with an acute exacerbation with associated rapid ventricular response requiring further modification and intervention from a medical standpoint to assist with rate control utilizing metoprolol tartrate at this time. 4. Bilateral pleural effusions, probably consistent with pulmonary edema and congestive heart failure presentation, yet possibility of an underlying community acquired pneumonia currently being treated with associated productive cough with sputum cultures pending. 5. Hypertension, poorly controlled. 6. History of peripheral vascular disease with lower extremity stents including bilateral iliac stents. 7. History of hyperlipidemia. 8. Gastroesophageal reflux disease. 9. Significant disability with the patient unable to fully care for himself without danger of significant falls. 10. Mild dehydration secondary to his nausea, vomiting and diarrhea, showing some improvement, yet significant disability currently noted. 11. Chronic Coumadin administration with subtherapeutic, approaching therapeutic levels with reinstitution of Coumadin p.o. with Lovenox bridge instituted yesterday short term. 12. Chronic anemia with a microcytic/hypochromic presentation. 13. History of bladder cancer with surgical approach. 14. Acute bladder outlet obstruction requiring Stanley catheter and will require ongoing urological intervention under Dr. Cardenas's supervision. 15. History of aortic valve replacement with an Rodrigez replacement valve in 2008. 16. History of a left thoracotomy due to a pleural mass which with no evidence of malignancy, associated with cryoablation of intercostal nerves because of chronic pain, performed in 2008. 17. History of coronary artery disease with a bypass graft in 2008. 18. Chronic tobacco abuse, encouraged to stop. PLAN: With the patients inability to safely transfer to a chair or bedside commode and requiring significant help, the patient is going to require ongoing physical therapy, strengthening and activities of daily living training before he is able to safely return home. Physical therapy and Social Service to evaluate for the possibility of transfer to a rehab hospital at [facility] or at [place] for continued rehab until improved to a safe point of returning home. Continue with Coumadin with INR of 1.22 noted. Add probiotics. Decrease fluids consumed. Increase p.o. Lasix. Increase activity with help. Ambulation when strong enough to help determine oxygen needs on exertion, yet avoid over oxygenation. The patient is admitted to the hospital because of the complication factors. Observe pulse rate with rapid atrial fibrillation requiring ongoing rate control medication adjustments. Followup with Dr. Cardenas after stabilization. #[id number] [facility] [place]
[2017-12-27] MEDS ORDERED: SODIUM CHL 0.9% 50ML MIN-BAG+ 50 ML IVPB ONE ×2 (12:31→20:08)
[2017-12-27] MEDS ORDERED: cefTRIAXone SODIUM 1 GM VIAL ONE ×2 (12:31→20:09)
[2017-12-27] MEDS: WARFARIN SODIUM 5 MG TAB PO SCH (12:31)
[2017-12-27] MEDS: cefTRIAXone SODIUM 1 GM in SODIUM CHL 0.9% 50ML MIN-BAG+ 50 ML IVPB SCH (12:33)
[2017-12-27] MEDS ORDERED: SODIUM CHLORIDE 0.9% 250ML 250 ML ONE (13:15)
[2017-12-27] MEDS ORDERED: AZITHROMYCIN IV 500 MG VIAL IVPB ONE (13:16)
[2017-12-27] MEDS: AZITHROMYCIN IV 500 MG in SODIUM CHLORIDE 0.9% 250ML 250 ML IVPB SCH (13:23)
[2017-12-27] MEDS: ALPRAZolam 0.5 MG TAB PO SCH (20:57)
[2017-12-27] MEDS: ATORVASTATIN 20 MG TAB PO SCH (20:57)
[2017-12-28] MEDS: cefTRIAXone SODIUM 1 GM in SODIUM CHL 0.9% 50ML MIN-BAG+ 50 ML IVPB SCH ×3 (00:11→23:56)
[2017-12-28] MEDS: LEVALBUTEROL NEBS 1.25 MG/3 ML VIAL NEB SCH ×3 (00:36→16:00)
[2017-12-28] MEDS: PANTOPRAZOLE SODIUM TAB 40 MG PO SCH (06:38)
[2017-12-28] MEDS ORDERED: SODIUM CHL 0.9% 50ML MIN-BAG+ 50 ML IVPB ONE ×2 (07:23→20:04)
[2017-12-28] MEDS ORDERED: SODIUM CHLORIDE 0.9% 250ML 0 ML ONE (07:23)
[2017-12-28] MEDS ORDERED: WARFARIN SODIUM 5 MG TAB ONE (07:24)
[2017-12-28] MEDS ORDERED: cefTRIAXone SODIUM 1 GM VIAL ONE ×2 (07:25→20:05)
[2017-12-28] MEDS ORDERED: WARFARIN SODIUM 2.5 MG TAB ONE (07:25)
[2017-12-28] MEDS ORDERED: AZITHROMYCIN IV 500 MG VIAL IVPB ONE (07:25)
[2017-12-28] MEDS: INSULIN LISPRO 100 UNITS/ML PEN SUBCU SCH ×4 (07:39→21:19)
[2017-12-28] MEDS: glyBURIDE 5 MG TAB PO SCH ×2 (07:43→16:55)
[2017-12-28] MEDS: POTASSIUM CHLORIDE 20 MEQ TAB PO SCH ×2 (07:43→16:55)
[2017-12-28] MEDS: NON-FORMULARY MEDICATION 1 EA MIS (Metformin Hcl [Metformin Hcl] 850 MG) PO SCH ×2 (07:43→16:58)
[2017-12-28] MEDS: SITagliptin 50 MG TAB PO SCH (09:17)
[2017-12-28] MEDS: VALSARTAN 80 MG TAB PO SCH (09:19)
[2017-12-28] MEDS: CITALOPRAM HBR 20 MG TAB PO SCH (09:19)
[2017-12-28] MEDS: ASPIRIN TABLET 325 MG TAB PO SCH (09:20)
[2017-12-28] MEDS: DONEPEZIL HCL 5 MG TAB PO SCH (09:20)
[2017-12-28] MEDS: amLODIPine BESYLATE 5 MG TAB PO SCH (09:20)
[2017-12-28] MEDS: TAMSULOSIN 0.4 MG CAP PO SCH (09:21)
[2017-12-28] MEDS: BIFIDOBACTERIUM INFANTIS 4 MG CAP PO SCH ×2 (09:21→20:27)
[2017-12-28] MEDS: guaiFENesin ER TAB 600 MG TAB PO SCH ×2 (09:21→20:27)
[2017-12-28] MEDS: ASCORBIC ACID 500 MG TAB PO SCH (09:21)
[2017-12-28] MEDS: FUROSEMIDE 40 MG TAB PO SCH ×2 (09:22→16:55)
[2017-12-28] MEDS: CETIRIZINE HCL 10 MG TAB PO SCH (09:23)
[2017-12-28] MEDS: METOPROLOL TARTRATE 50 MG TAB PO SCH ×2 (09:37→20:27)
[2017-12-28] MEDS ORDERED: ONDANSETRON 4 MG TAB PO PRN (10:34)
[2017-12-28] MEDS: WARFARIN SODIUM PO SCH ×2 (11:58)
[2017-12-28] MEDS: AZITHROMYCIN 250 MG TAB PO SCH (12:50)
[2017-12-28] MEDS: DUTASTERIDE 0.5 MG CAP PO SCH (14:03)
--- NOTE | 2017-12-28 16:47 | PN ---
DATE: 12/28/17 SUBJECTIVE: The patient is sitting up in the chair. He has less jugular venous distention today. Still very tired and requiring significant assistance , though slightly improved compared to yesterday. Discussed the importance of avoiding over hydration by drinking too much fluid, especially with his recent episode of pulmonary edema. His treatment for underlying pneumonia continues. Physical Therapy has suggested and we are now working, and the patient has been accepted to [facility] by tomorrow. His condition is discussed with Dr. Davis at [phone]. The patient will require ongoing care and support during this time of getting stronger to the point where he will be able to safely return home. OBJECTIVE: Afebrile, pulse 91, pulse oximetry 97% on 2 liters nasal cannula, blood pressure 105/72. Weight is pending. GENERAL: The patient is much more alert, has much improved memory. His is present helping to care for him which is helpful. The patient is very much willing to continue with rehabilitation at [facility] so that he will be able to go home when safe. LUNGS: Have some diminished breath sounds and some rhonchi in both bases. Clearing compared to yesterday. ABDOMEN: Obese yet soft. HEART: Tones are somewhat distant, somewhat rapid. LABORATORY: Blood sugar this morning was 125 fasting. Repeat lab ordered tomorrow morning. RADIOLOGY: Chest x-ray to be repeated as well. ASSESSMENT: 1. Chronic congestive heart failure with an acute exacerbation with elevated beta natriuretic peptide and pulmonary edema with elevated jugular venous distention present, showing some radiographic and clinical improvement. Undetermined etiology. Awaiting echocardiographic review. 2. Acute episode of nausea, vomiting and diarrhea with abdominal discomfort, possible viral gastroenteritis, showing some clinical improvement after GI rest and IV fluid support, now with dietary intervention and cutting back on fluids because of pulmonary edema state. 3. Chronic atrial fibrillation with an acute exacerbation with associated rapid ventricular response requiring further modification and intervention from a medical standpoint to assist with rate control utilizing metoprolol tartrate at this time. 4. Bilateral pleural effusions, probably consistent with pulmonary edema and congestive heart failure presentation, yet possibility of an underlying community acquired pneumonia currently being treated with associated productive cough with sputum cultures pending. 5. Hypertension, poorly controlled. 6. History of peripheral vascular disease with lower extremity stents including bilateral iliac stents. 7. History of hyperlipidemia. 8. Gastroesophageal reflux disease. 9. Significant disability with the patient unable to fully care for himself without danger of significant falls. 10. Mild dehydration secondary to his nausea, vomiting and diarrhea, showing some improvement, yet significant disability currently noted. 11. Chronic Coumadin administration with subtherapeutic, approaching therapeutic levels with reinstitution of Coumadin p.o. with Lovenox bridge instituted yesterday short term. 12. Chronic anemia with a microcytic/hypochromic presentation. 13. History of bladder cancer with surgical approach. 14. Acute bladder outlet obstruction requiring Stanley catheter and will require ongoing urological intervention under Dr. Cardenas's supervision. 15. History of aortic valve replacement with an Rodrigez replacement valve in 2008. 16. History of a left thoracotomy due to a pleural mass which with no evidence of malignancy, associated with cryoablation of intercostal nerves because of chronic pain, performed in 2008. 17. History of coronary artery disease with a bypass graft in 2008. 18. Chronic tobacco abuse, encouraged to stop. PLAN: After discussing with [facility], it is anticipated that by tomorrow as condition improves will be able to transfer the patient after discharge from our hospital to be admitted at [facility] for continued rehab before being able to go home when safe. Because of the catheter and the bladder outlet obstruction probably from the prostate, the patient will be started on Avodart daily in an effort to reduce the swelling of the prostate so that the catheter can eventually be evaluated by a urologist, either Dr. Zepeda or Dr. Grigsby , who will be able to help follow him up at their [place] clinic in the future. The previous urologist has performed removal surgically of bladder cancer and had cystoscopy most recently in June of last year, and scheduled for reevaluation this next fall. Anticipate transfer to [facility] tomorrow for continued rehabilitation. Special attention to avoiding over hydration by fluid restrictions and continue antibiotic treatment for the underlying pneumonia with reevaluation in the morning. #[id number] [facility]
[2017-12-28] MEDS: ATORVASTATIN 20 MG TAB PO SCH (20:27)
[2017-12-28] MEDS: IV SET AND CAP CHANGE INJ INJ SCH (20:27)
[2017-12-28] MEDS: ALPRAZolam 0.5 MG TAB PO SCH (20:27)
[2017-12-29] MEDS: LEVALBUTEROL NEBS 1.25 MG/3 ML VIAL NEB SCH ×2 (00:42→07:52)
[2017-12-29] MEDS: PANTOPRAZOLE SODIUM TAB 40 MG PO SCH (06:41)
[2017-12-29] MEDS: INSULIN LISPRO 100 UNITS/ML PEN SUBCU SCH ×2 (08:30→11:39)
[2017-12-29] MEDS: DONEPEZIL HCL 5 MG TAB PO SCH (08:35)
[2017-12-29] MEDS: METOPROLOL TARTRATE 50 MG TAB PO SCH (08:35)
[2017-12-29] MEDS: glyBURIDE 5 MG TAB PO SCH (08:35)
[2017-12-29] MEDS: SITagliptin 50 MG TAB PO SCH (08:35)
[2017-12-29] MEDS: BIFIDOBACTERIUM INFANTIS 4 MG CAP PO SCH (08:35)
[2017-12-29] MEDS: VALSARTAN 80 MG TAB PO SCH (08:36)
[2017-12-29] MEDS: ASCORBIC ACID 500 MG TAB PO SCH (08:36)
[2017-12-29] MEDS: guaiFENesin ER TAB 600 MG TAB PO SCH (08:36)
[2017-12-29] MEDS: CETIRIZINE HCL 10 MG TAB PO SCH (08:36)
[2017-12-29] MEDS: AZITHROMYCIN 250 MG TAB PO SCH (08:36)
[2017-12-29] MEDS: CITALOPRAM HBR 20 MG TAB PO SCH (08:36)
[2017-12-29] MEDS: FUROSEMIDE 40 MG TAB PO SCH (08:37)
[2017-12-29] MEDS: amLODIPine BESYLATE 5 MG TAB PO SCH (08:37)
[2017-12-29] MEDS: POTASSIUM CHLORIDE 20 MEQ TAB PO SCH (08:37)
[2017-12-29] MEDS: ASPIRIN TABLET 325 MG TAB PO SCH (08:37)
[2017-12-29] MEDS: TAMSULOSIN 0.4 MG CAP PO SCH (08:37)
[2017-12-29] MEDS: DUTASTERIDE 0.5 MG CAP PO SCH (08:37)
[2017-12-29] MEDS: NON-FORMULARY MEDICATION 1 EA MIS (Metformin Hcl [Metformin Hcl] 850 MG) PO SCH (08:46)
[2017-12-29 10:56] VITALS: BP 171/56; TEMP 97.6; O2SAT 98
[2017-12-29] MEDS ORDERED: cefTRIAXone SODIUM 1 GM VIAL ONE (11:26)
[2017-12-29] MEDS ORDERED: SODIUM CHL 0.9% 50ML MIN-BAG+ 50 ML IVPB ONE (11:26)
[2017-12-29] MEDS: cefTRIAXone SODIUM 1 GM in SODIUM CHL 0.9% 50ML MIN-BAG+ 50 ML IVPB SCH (11:39)
[2017-12-29] MEDS: WARFARIN SODIUM 5 MG TAB PO SCH (11:39)
--- NOTE | 2017-12-31 09:33 | DS ---
SUPERVISING PHYSICIAN: Felice Allen MD DISCHARGE DIAGNOSIS: 1. Chronic congestive heart failure with an acute exacerbation with elevated beta natriuretic peptide on admission with pulmonary edema with elevated jugular venous distention, showing improvement, both radiographically and clinically with treatment with no current echocardiogram for review with undetermined etiology. 2. Acute episode of nausea, vomiting and diarrhea with abdominal discomfort, possible viral gastroenteritis, showing some clinical improvement after GI rest and IV fluid fluids. 3. Chronic atrial fibrillation with an acute exacerbation with associated rapid ventricular response requiring further initially of medical management with good rate control with metoprolol prior to discharge. 4. Bilateral pleural effusions, probably consistent with pulmonary edema and congestive heart failure presentation with questionable community acquired pneumonia, showing good improvement with treatment with cultures showing a final result with Klebsiella pneumoniae that was sensitive to all but ampicillin. 5. History of peripheral vascular disease with lower extremity stents including bilateral iliac stents. 6. History of hyperlipidemia. 7. Gastroesophageal reflux disease. 8. Significant disability with the patient unable to fully care for himself without danger of significant falls requiring further treatment with long-term physical therapy through [facility]. 9. Mild dehydration secondary to his nausea, vomiting and diarrhea, showing improvement with fluids. 10. Chronic Coumadin administration with subtherapeutic, approaching therapeutic levels with reinstitution of Coumadin p.o. with Lovenox continued at discharge. 11. Chronic anemia with a microcytic/hypochromic presentation, likely of chronic illness. 12. History of bladder cancer with surgical approach. 13. Acute bladder outlet obstruction requiring Stanley catheter and ongoing urologic management under Dr. Cardenas's supervision once discharged. 14. History of a left thoracotomy due to a pleural mass which with no evidence of malignancy, associated with cryoablation of intercostal nerves because of chronic pain, performed in 2008. 15. History of coronary artery disease with a bypass graft in 2008. 16. Chronic tobacco abuse, encouraged to stop. REASON FOR HOSPITALIZATION: Mr. Zapata is a 77-year-old, male patient who presented to the Emergency Room on 12/27/17 due to ongoing nausea and vomiting that started around 2 AM the morning of admission with some associated diarrhea. The was present at the time of admission and was the primary historian. She notes that the patient developed symptoms earlier that morning and became weaker throughout the day. She brought him to the Emergency Department due to the ongoing nausea with weakness as she was unable to assist with any lifting at home and she has had recent back surgery. The patient was denying any abdominal pain and no fevers were reported. He does have a history of recently being diagnosed with atrial fibrillation on metoprolol. Apparently , the patient had not taken any medications due to the nausea and was unable to hold any medications down, including the beta mohan which he takes for rate control. Initially when he presented to the Emergency Room, he was showing atrial fibrillation with rapid ventricular response with a rate of 122 beats per minute. He also has a history of multiple comorbidities and severe peripheral arterial disease and congestive heart failure. He has persistent pleural effusions and has actually had an aortic valve replacement and thoracotomy on the left in the past. He does currently smoke approximately one pack of cigarettes a day as he has those available. He has had multiple stents and coronary artery bypass graft as well. He does take Coumadin for his atrial fibrillation along with beta mohan. In the Emergency Room, he was found to be somewhat lethargic, but arousable and notably weak. He denied any fevers, sore throat, runny nose, shortness of breath. His laboratory studies showed he had a normal white count, but development of a left shift. In the Emergency Room, he continued to have some nausea which did resolve nicely with some Zofran. Given that he was having significant amount of diarrhea, C. difficile was completed which was negative for both antigen and toxin. He then had radiographic studies that included initially an abdominal x-ray that was concerning for possible ileus or obstruction. Given his underlying comorbidities and current symptoms, an abdominopelvic CT was performed without contrast as well as CT of the chest. Per radiologic interpretation, findings were notable for patchy bilateral pleural infiltrates, larger on the right than the left, with some abdominopelvic ascites, but no evidence of bowel obstruction or ileus and no evidence of diverticulitis. Given the patient's severe weakness and lethargy and the fact that he was unable to function without a great deal of assistance, the patient was going placed in observation initially for IV fluids with concerns for viral gastroenteritis complicated by multiple comorbidities. He was placed in observation in stable condition. LABORATORY: On admission, white count 8,300. It did go up to 12,100, but at discharge it was down to 9,600. Hemoglobin and hematocrit were stable at 10.9 and 34.9. Platelet count 266,000. Differential did show a left shift, but this had resolved prior to discharge. Coagulation studies showed initially an INR subtherapeutic at 1.61. He was initiated on his p.o. medications in regard to the Coumadin and prior to discharge, he had shown improvement at therapeutic level up to 2.21. Chemistries on admission were within normal limits with electrolytes showing BUN 18, creatinine 0.7 with bilirubin slightly elevated at 1.3, magnesium 1.8. Troponin less than 0.02, BNP 755. Blood sugars ranged from 150s to 160s. Prior to discharge, electrolytes normalized. BUN was 14, creatinine 0.79, calcium 8.8. Repeat urinalysis after Stanley placement for urinary retention was within normal limits. MICROBIOLOGY: Sputum culture showed Klebsiella pneumoniae that was sensitive to all but ampicillin. He had two sets of blood cultures negative after 4 days. Stool culture showed no enteric pathogens isolated at 72 hours and stool leukocytes were positive. C. difficile was negative for A and B. RADIOLOGY: Initial abdominal x-ray in the Emergency Department per radiologic interpretation showed suboptimal study due to body habitus. There were several prominent loops of bowels in the mid abdomen which could be from ileus or obstruction. This was followed up with abdominopelvic CT without contrast and per radiologic interpretation there was no evidence to suggest bowel obstruction or ileus. There was diverticulosis without evidence diverticulitis. Please see that report for full details. He also had several chest x-rays with the final being on 12/27/17 and per radiologic interpretation showed improvement in probably congestive failure, but no pneumothorax. HOSPITAL COURSE: Mr. Zapata was admitted as noted on 12/27/17 for concerns for viral gastroenteritis. He did show initial good response to treatment, but closer to discharge the patient was improving, but he was requiring ongoing physical therapy. Therefore, arrangements were made for physical therapy from [facility] to visit with the patient and the patient's family in regard to discharge planning. He was treated for his pneumonia with antibiotics that included both Rocephin and azithromycin. He was also given diuretics with Lasix and showed good clinical improvement. It was felt he had clinically improved well enough to continue with outpatient treatment plan. PLAN: Mr. Zapata was discharged on 12/29/17 with instructions to followup closely with Dr. Cardenas in the following week once discharged from [facility]. He was discharged and transferred via private vehicle to [facility] for continued rehabilitation. Diet at discharge was diabetic diet. Activity per physical therapy. New prescriptions were provided at discharge and included: 1. Align 4 mg daily. 2. Cefdinir 300 mg twice daily, #14. 3. Avodart 0.5 mg daily, #30. 4. Guaifenesin 600 mg tablets twice daily. 5. Xopenex treatment as needed, #30. 6. Xopenex nebulizer treatments 1.25 mg every 8 hours for respiratory failure, #30. Condition at discharge was stable. He was transferred via private vehicle. #[id number] [facility]
== END 2017-12-29 12:40 | DRG 291 ==
LOC: ER 15:25 → MS 19:56 → OBSVTOIN 19:56 → INTOOBSV 19:56 → OBSVTOIN 12-27 08:58
PROVIDERS: ADMIT Nurse Practitioner Family; ATTEND Nurse Practitioner Family
DX: I11.0 Hypertensive heart disease with heart failure (principal); J15.0 Pneumonia due to Klebsiella pneumoniae; R18.8 Other ascites; A08.4 Viral intestinal infection, unspecified; I48.2 Chronic atrial fibrillation; I73.9 Peripheral vascular disease, unspecified; E78.5 Hyperlipidemia, unspecified; K21.9 Gastro-esophageal reflux disease without esophagitis; D63.8 Anemia in other chronic diseases classified elsewhere; N32.0 Bladder-neck obstruction; I25.10 Atherosclerotic heart disease of native coronary artery without angina pectoris; F17.210 Nicotine dependence, cigarettes, uncomplicated; K57.90 Diverticulosis of intestine, part unspecified, without perforation or abscess without bleeding; I50.9 Heart failure, unspecified; E11.9 Type 2 diabetes mellitus without complications; E86.0 Dehydration; Z95.1 Presence of aortocoronary bypass graft; Z79.01 Long term (current) use of anticoagulants; Z95.820 Peripheral vascular angioplasty status with implants and grafts; Z85.51 Personal history of malignant neoplasm of bladder; Z95.2 Presence of prosthetic heart valve; Z79.4 Long term (current) use of insulin; Z86.73 Personal history of transient ischemic attack (TIA), and cerebral infarction without residual deficits; Z79.82 Long term (current) use of aspirin; B96.1 Klebsiella pneumoniae [K. pneumoniae] as the cause of diseases classified elsewhere

== ENCOUNTER → 2018-01-16 | Outpatient (CLI) | payer MEDICARE | LOC: GT 10:59 | PROVIDERS: ATTEND Family Medicine | DX: I50.9 Heart failure, unspecified (principal) ==

== ENCOUNTER → 2018-01-23 | Outpatient (CLI) | payer MEDICARE | LOC: GT 09:40 | PROVIDERS: ATTEND Family Medicine | DX: I50.9 Heart failure, unspecified (principal) | CPT/HCPCS: 36415; 85610; P9603 ==

== ENCOUNTER → 2018-01-30 | Outpatient (CLI) | payer MEDICARE | LOC: GT 06:47 | PROVIDERS: ATTEND Family Medicine | DX: I50.9 Heart failure, unspecified (principal) ==

== ENCOUNTER → 2018-02-01 | Outpatient (CLI) | payer MEDICARE | LOC: GT 07:18 | PROVIDERS: ATTEND Family Medicine | DX: I50.9 Heart failure, unspecified (principal) ==

== ENCOUNTER → 2018-02-08 | Outpatient (CLI) | payer MEDICARE | LOC: GT 07:27 | PROVIDERS: ATTEND Family Medicine | DX: Z79.01 Long term (current) use of anticoagulants (principal) ==

== ENCOUNTER 2018-02-22 09:46 | Emergency (ER) | payer MEDICARE ==
[2018-02-22 10:25] VITALS: TEMP 96.6
--- NOTE | 2018-02-22 10:38 | ED.PDOC ---
History of Present Illness - General Chief Complaint: Cardiovascular Problem Stated Complaint: shortness of breath, edema Time Seen by Provider: 02/22/18 10:34 Source: patient, family Additional Information: HE COMES FROM [facility] WITH PROGRESSIVELY WORSENING EDEMA OF THE LOWER EXTREMITIES. HAS A HX OF CAD, CABGE, S/P AORTIC VALVE REPLACEMENT , CHF AND DIABETES. NOW IS HERE WITH EDEMA AND SOB. EVIDENTLY HAS NOT BEEN TAKING THE LASIX. - History of Present Illness Timing/Duration: 1 week Location: other - LOWER LEGS Activities at Onset: none Prior Chest Pain/Cardiac Workup: no prior chest pain, no prior cardiac workup Improving Factors: nothing Worsening Factors: nothing Nitro Today/Relief: no nitro taken today Aspirin Treatment Today: no aspirin today Associated Symptoms: malaise, weakness Allergies/Adverse Reactions: Allergies NO KNOWN ALLERGY Allergy (Verified 12/25/17 16:55) Home Medications: Ambulatory Orders Amlodipine Besylate-Valsartan [Amlodipine Besylate/Valsa 10-160 mg] 1 tablet PO DAILY 12/25/17 Ascorbic Acid [Vitamin C] 500 mg PO DAILY 12/25/17 Aspirin 325 mg PO QD 12/25/17 Atorvastatin Calcium [Lipitor] 40 mg PO BEDTIME 12/25/17 Bupropion HCl [Bupropion HCl Sr] 150 mg PO DAILY 12/25/17 Cetirizine HCl 10 mg PO DAILY 12/25/17 Citalopram Hydrobromide [Celexa] 10 mg PO DAILY 12/25/17 Coenzyme Q10 (Ubidecarenone) [Coenzyme Q10] 100 mg PO DAILY 12/25/17 Donepezil HCl [Aricept] 5 mg PO DAILY 12/25/17 Furosemide 40 mg PO BID 12/25/17 Metformin HCl 850 mg PO BID 12/25/17 Metoprolol Tartrate 50 mg PO BEDTIME 12/25/17 Metoprolol Tartrate 100 mg PO DAILY 12/25/17 Multiple Vitamins W/ Minerals [Centrum Silver] 1 tablet PO DAILY 12/25/17 [place]-3 Fatty Acids [Fish Oil 1000 mg] 1 cap PO DAILY 12/25/17 Pantoprazole Tablet [Protonix] 40 mg PO DAILY 12/25/17 Potassium Chloride [K-Tab] 20 meq PO DAILY 12/25/17 Sitagliptin Phosphate [Januvia] 100 mg PO DAILY 03/20/18 Tamsulosin HCl [Flomax] 0.4 mg PO DAILY 12/25/17 Warfarin Sodium 5 mg PO SUTUTHSA@1200 12/25/17 Warfarin Sodium 7.5 mg PO MOWEFR@1200 12/25/17 glyBURIDE [Diabeta] 5 mg PO BID 12/25/17 ALPRAZolam [Xanax] 0.5 mg PO BEDTIME 12/26/17 Insulin Regular (Human) [Novolin R] 1 unit IJ PRN PRN 12/26/17 Bifidobacterium Infantis [Align] 4 mg PO BID cap 12/29/17 Cefdinir [Omnicef] 300 mg PO BID #14 cap 12/29/17 Dutasteride [Avodart] 0.5 mg PO DAILY #30 cap 12/29/17 Levalbuterol Nebs [Xopenex NEBS] 1.25 mg NEB Q8H PRN #30 vial 12/29/17 Levalbuterol Nebs [Xopenex NEBS] 1.25 mg NEB RTQ8 #30 vial 12/29/17 guaiFENesin ER TAB [Mucinex Tab] 600 mg PO BID tab 12/29/17 Review of Systems - Review of Systems Constitutional: States: no symptoms reported EENTM: States: no symptoms reported Respiratory: States: short of breath Cardiology: States: edema, palpitations Gastrointestinal/Abdominal: States: no symptoms reported Genitourinary: States: no symptoms reported Musculoskeletal: States: no symptoms reported, see HPI Skin: States: no symptoms reported Neurological: States: no symptoms reported Endocrine: States: no symptoms reported Hematologic/Lymphatic: States: no symptoms reported Past Medical History (General) - Patient Medical History Hx Seizures: No Hx Stroke: Yes - 06/2009 Hx Asthma: No Hx of COPD: Yes Hx Cardiac Disorders: Yes - A fib Hx Congestive Heart Failure: Yes Hx Pacemaker: No Hx Hypertension: Yes Hx Diabetes: Yes Hx Gastroesophageal Reflux: Yes Hx Cancer: Yes - Bladder Hx MRSA: No - Social History Hx Tobacco Use: No Hx Alcohol Use: No Hx Substance Use: No Hx Physical Abuse: No Hx Emotional Abuse: No Family Medical History - Family History Father Family History: Unknown Living Status: Hx Family;Other: dementia Mother Living Status: Hx Family;Other: cancer of arm Physical Exam - Physical Exam General Appearance: Alert, Well Developed, Well Groomed Eyes, Ears, Nose, Throat Exam: PERRL/EOMI, normal ENT inspection, TMs normal, pharynx normal Neck: non-tender, full range of motion, supple Respiratory: chest non-tender, lungs clear, normal breath sounds, no respiratory distress, no accessory muscle use Cardiovascular/Chest: tachycardia, gallop/S3, irregularly irregular Peripheral Pulses: radial,right: 2+, radial,left: 2+, posterior tibialis,right: 2+, posterior tibialis,left: 2+ Gastrointestinal/Abdominal: normal bowel sounds, non tender, soft, no organomegaly, no pulsatile mass Rectal Exam: deferred Extremity: no calf tenderness, pedal edema, swelling 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 Copy, Patient Portal Self Enrollment Instructions: DI for Chest Pain Referrals: Pawel Cardenas MD [Primary Care Provider] - 1-2 Weeks Home Medications: Ambulatory Orders Amlodipine Besylate-Valsartan [Amlodipine Besylate/Valsa 10-160 mg] 1 tablet PO DAILY 12/25/17 Ascorbic Acid [Vitamin C] 500 mg PO DAILY 12/25/17 Aspirin 325 mg PO QD 12/25/17 Atorvastatin Calcium [Lipitor] 40 mg PO BEDTIME 12/25/17 Bupropion HCl [Bupropion HCl Sr] 150 mg PO DAILY 12/25/17 Cetirizine HCl 10 mg PO DAILY 12/25/17 Citalopram Hydrobromide [Celexa] 10 mg PO DAILY 12/25/17 Coenzyme Q10 (Ubidecarenone) [Coenzyme Q10] 100 mg PO DAILY 12/25/17 Donepezil HCl [Aricept] 5 mg PO DAILY 12/25/17 Furosemide 40 mg PO BID 12/25/17 Metformin HCl 850 mg PO BID 12/25/17 Metoprolol Tartrate 50 mg PO BEDTIME 12/25/17 Metoprolol Tartrate 100 mg PO DAILY 12/25/17 Multiple Vitamins W/ Minerals [Centrum Silver] 1 tablet PO DAILY 12/25/17 [place]-3 Fatty Acids [Fish Oil 1000 mg] 1 cap PO DAILY 12/25/17 Pantoprazole Tablet [Protonix] 40 mg PO DAILY 12/25/17 Potassium Chloride [K-Tab] 20 meq PO DAILY 12/25/17 Sitagliptin Phosphate [Januvia] 100 mg PO DAILY 12/25/17 Tamsulosin HCl [Flomax] 0.4 mg PO DAILY 12/25/17 Warfarin Sodium 5 mg PO SUTUTHSA@1200 12/25/17 Warfarin Sodium 7.5 mg PO MOWEFR@1200 12/25/17 glyBURIDE [Diabeta] 5 mg PO BID 12/25/17 ALPRAZolam [Xanax] 0.5 mg PO BEDTIME 12/26/17 Insulin Regular (Human) [Novolin R] 1 unit IJ PRN PRN 12/26/17 Bifidobacterium Infantis [Align] 4 mg PO BID cap 12/29/17 Cefdinir [Omnicef] 300 mg PO BID #14 cap 12/29/17 Dutasteride [Avodart] 0.5 mg PO DAILY #30 cap 12/29/17 Levalbuterol Nebs [Xopenex NEBS] 1.25 mg NEB Q8H PRN #30 vial 12/29/17 Levalbuterol Nebs [Xopenex NEBS] 1.25 mg NEB RTQ8 #30 vial 12/29/17 guaiFENesin ER TAB [Mucinex Tab] 600 mg PO BID tab 12/29/17 Additional Instructions: HOLD COUMADIN FOR TWO DAYS LASIX 40 MG TWICE A DAY FOR THE NEXT THREE DAYS. REPEAT PT INR IN THREE DAYS
--- NOTE | 2018-02-22 11:40 | RAD ---
EXAM DESCRIPTION: Chest,1 View CLINICAL HISTORY: Shortness of breath COMPARISON: December 27, 2017 Findings/impression: Single portable upright frontal view of the chest. Examination is limited due to patient's body habitus and technique. Given this limitation, post cardiac valve replacement changes with median sternotomy wires. Cardiac silhouette shows stable cardiomegaly with decrease central pulmonary vascular congestion compared to December 27, 2017. Redemonstration of small bilateral pleural effusion. Hazy opacities in the bilateral lower lung zones most likely secondary to atelectasis. Underlying infiltrate cannot be entirely excluded. No pneumothorax. Electronically signed by: Rodney Ovalle MD 02/22/2018 11:39 AM CDT
[2018-02-22] MEDS ORDERED: FUROSEMIDE INJ 20 MG/2 ML VIAL ONE (11:42)
[2018-02-22] MEDS ORDERED: FUROSEMIDE INJ 40 MG/4 ML VIAL ONE (11:42)
[2018-02-22 12:53] VITALS: O2SAT 96
[2018-02-22 13:43] VITALS: BP 132/84
[2018-02-23] MEDS ORDERED: FUROSEMIDE INJ 100 MG/10 ML VIAL IV SCH (09:00)
== END 2018-02-22 13:43 ==
LOC: ER 09:46
DX: I11.0 Hypertensive heart disease with heart failure (principal); I50.9 Heart failure, unspecified; I48.91 Unspecified atrial fibrillation; T45.515A Adverse effect of anticoagulants, initial encounter; J44.9 Chronic obstructive pulmonary disease, unspecified; E11.9 Type 2 diabetes mellitus without complications; K21.9 Gastro-esophageal reflux disease without esophagitis; Z86.73 Personal history of transient ischemic attack (TIA), and cerebral infarction without residual deficits; Z79.01 Long term (current) use of anticoagulants; Z79.82 Long term (current) use of aspirin; Z95.1 Presence of aortocoronary bypass graft; Z95.2 Presence of prosthetic heart valve
CPT/HCPCS: 36415; 71045; 80053; 81001; 83880; 84484; 85025; 85610; 85730; 87086; 93005; J1940

== ENCOUNTER 2018-02-26 10:24 | Inpatient (IN) | payer MEDICARE ==
--- NOTE | 2018-02-26 11:01 | ED.PDOC ---
History of Present Illness - General Chief Complaint: General Stated Complaint: SOB/leg swelling Time Seen by Provider: 02/26/18 11:01 Source: patient, EMS Exam Limitations: no limitations - History of Present Illness Initial Comments: Rodney Zapata 77 y/o male resident of [facility] stated for the last one month had been having SOB which gradually worsened the last one week with more leg swelling.Patient was on cpap on arrival here.Moran history of chf,a.fib. Timing/Duration: other - see hpi Severity: moderate Activities at Onset: rest Possible Cause: occasional episodes Improving Factors: nothing Associated Symptoms: other - see hp[i Respiratory Risk Factors: other - chf Allergies/Adverse Reactions: Allergies NO KNOWN ALLERGY Allergy (Verified 12/25/17 16:55) Home Medications: Ambulatory Orders Amlodipine Besylate-Valsartan [Amlodipine Besylate/Valsa 10-160 mg] 1 tablet PO DAILY 12/25/17 Ascorbic Acid [Vitamin C] 500 mg PO DAILY 12/25/17 Aspirin 325 mg PO QD 12/25/17 Atorvastatin Calcium [Lipitor] 40 mg PO BEDTIME 12/25/17 Bupropion HCl [Bupropion HCl Sr] 150 mg PO DAILY 12/25/17 Cetirizine HCl 10 mg PO DAILY 12/25/17 Citalopram Hydrobromide [Celexa] 10 mg PO DAILY 12/25/17 Coenzyme Q10 (Ubidecarenone) [Coenzyme Q10] 100 mg PO DAILY 12/25/17 Donepezil HCl [Aricept] 5 mg PO DAILY 12/25/17 Furosemide 40 mg PO BID 12/25/17 Metformin HCl 850 mg PO BID 12/25/17 Metoprolol Tartrate 50 mg PO BEDTIME 12/25/17 Metoprolol Tartrate 100 mg PO DAILY 12/25/17 Multiple Vitamins W/ Minerals [Centrum Silver] 1 tablet PO DAILY 12/25/17 [facility]-3 Fatty Acids [Fish Oil 1000 mg] 1 cap PO DAILY 12/25/17 Pantoprazole Tablet [Protonix] 40 mg PO DAILY 12/25/17 Potassium Chloride [K-Tab] 20 meq PO DAILY 12/25/17 Sitagliptin Phosphate [Januvia] 100 mg PO DAILY 12/25/17 Tamsulosin HCl [Flomax] 0.4 mg PO DAILY 12/25/17 Warfarin Sodium 5 mg PO SUTUTHSA@1200 12/25/17 Warfarin Sodium 7.5 mg PO MOWEFR@1200 12/25/17 glyBURIDE [Diabeta] 5 mg PO BID 12/25/17 ALPRAZolam [Xanax] 0.5 mg PO BEDTIME 12/26/17 Insulin Regular (Human) [Novolin R] 1 unit IJ PRN PRN 12/26/17 Bifidobacterium Infantis [Align] 4 mg PO BID cap 12/29/17 Cefdinir [Omnicef] 300 mg PO BID #14 cap 12/29/17 Dutasteride [Avodart] 0.5 mg PO DAILY #30 cap 12/29/17 Levalbuterol Nebs [Xopenex NEBS] 1.25 mg NEB Q8H PRN #30 vial 12/29/17 Levalbuterol Nebs [Xopenex NEBS] 1.25 mg NEB RTQ8 #30 vial 12/29/17 guaiFENesin ER TAB [Mucinex Tab] 600 mg PO BID tab 12/29/17 Review of Systems - Review of Systems Constitutional: States: no symptoms reported EENTM: States: no symptoms reported Respiratory: States: see HPI Cardiology: States: see HPI Gastrointestinal/Abdominal: States: no symptoms reported Skin: States: see HPI Neurological: States: no symptoms reported Endocrine: States: no symptoms reported All other Systems: Reviewed and Negative Past Medical History (General) - Patient Medical History Hx Seizures: No Hx Stroke: Yes - 06/2009 Hx Asthma: No Hx of COPD: Yes Hx Cardiac Disorders: Yes - A fib Hx Congestive Heart Failure: Yes Hx Pacemaker: No Hx Hypertension: Yes Hx Diabetes: Yes Hx Gastroesophageal Reflux: Yes Hx Cancer: Yes - Bladder Hx MRSA: No Surgical History: cholecystectomy, coronary bypass surgery, other - urinary bladder - Social History Hx Tobacco Use: No Hx Alcohol Use: No Hx Substance Use: No Hx Physical Abuse: No Hx Emotional Abuse: No Family Medical History - Family History Father Family History: Unknown Living Status: Hx Family;Other: dementia Mother Living Status: Hx Family;Other: cancer of arm Physical Exam - Physical Exam General Appearance: Alert, Comfortable, No apparent distress Eyes, Ears, Nose, Throat Exam: normal ENT inspection Neck: non-tender, supple Respiratory: chest non-tender, no respiratory distress, decreased breath sounds , rales - bases Cardiovascular/Chest: normal peripheral pulses, tachycardia - hR -!!&, irregularly irregular Peripheral Pulses: radial,right: 2+, radial,left: 2+ Gastrointestinal/Abdominal: non tender, soft, no organomegaly, distended, other - srcotal edema;patent indweling cath Extremity: no calf tenderness, pedal edema - 3 + anasarca Neurologic: alert, oriented x 3 Skin Exam: normal color, rash - both legs eruthematous maculopapular rash left > right Lymphatic: no adenopathy Progress - Progress Progress: 02/26/18 11:46 Vital Signs - 8 hr 02/26/18 02/26/18 11:03 11:13 Temperature 101.4 F H Pulse Rate [ 104 H Left Brachial] Respiratory 40 H 16 Rate Blood Pressure 130/76 [Left Arm] O2 Sat by Pulse 94 L Oximetry - Results/Orders Results/Orders: 02/26/18 11:06 ABG [Arterial Blood Gas] Stat 02/26/18 11:07 EKG Assessment DAILY 02/26/18 11:15 EKG STAT 02/26/18 12:05 BLOOD CULTURE Stat 02/26/18 12:13 Vancomycin HCl Inj 1,000 mg Vancomycin HCl Inj 250 mg Sodium Chloride 0.9% 250Ml [NS 250ml] 250 ml IVPB ONCE 02/26/18 12:40 URINE CULTURE W/COLONY COUNT Stat 02/26/18 13:38 ABG [Arterial Blood Gas] Stat 02/26/18 13:46 Meropenem [Merrem] 500 mg Sodium Chl 0.9% 50Ml Min-Bag+ [NS 50ml MINI-BAG+] 50 ml IVPB ONCE 02/26/18 13:48 URINE CULTURE W/COLONY COUNT Stat Laboratory Results - last 24 hr 02/26/18 02/26/18 02/26/18 11:00 11:00 11:20 WBC 25.6 H* RBC 4.86 Hgb 10.3 L Hct 34.3 L MCV 70.6 L MCH 21.1 L MCHC 30.0 L RDW 20.0 H Plt Count 306 MPV 9.1 Absolute Neuts (auto) Not Reportable Absolute Lymphs (auto) Not Reportable Absolute Monos (auto) Not Reportable Absolute Eos (auto) Not Reportable Neutrophils % Not Reportable Neutrophils % (Manual) 78.0 Lymphocytes % Not Reportable Lymphocytes % (Manual) 4.0 Monocytes % Not Reportable Monocytes % (Manual) 3.0 Eosinophils % Not Reportable Basophils % Not Reportable Band Neutrophils 15.0 H* Hypochromia 1+ Platelet Estimate Nor Anisocytosis 1+ Microcytosis 1+ PT 22.1 H* INR 1.920 PTT (SP) 32.2 Sodium 135 Potassium 5.6 H Chloride 99 L Carbon Dioxide 21 Anion Gap 20.6 H BUN 18 Creatinine 1.32 H BUN/Creatinine Ratio 13.6 Random Glucose 189 H Serum Osmolality 277.0 Lactic Acid 7.1 H* Calcium 8.8 Magnesium 1.4 L Total Bilirubin 1.8 H Direct Bilirubin 0.6 H Indirect Bilirubin 1.2 H AST 25 ALT 11 Alkaline Phosphatase 61 Creatine Kinase 12 L CK-MB (CK-2) 0.9 CK-MB (CK-2) % Not Reportable Troponin I 0.02 B-Natriuretic Peptide 2390.0 H* Serum Total Protein 6.9 Albumin 2.9 L Urine Color Urine Appearance Urine pH Ur Specific [place] Urine Protein Urine Glucose (UA) Urine Ketones Urine Blood Urine Nitrite Urine Bilirubin Urine Urobilinogen Ur Leukocyte Esterase Urine RBC Urine WBC Ur Epithelial Cells Urine Bacteria 02/26/18 12:40 WBC RBC Hgb Hct MCV MCH MCHC RDW Plt Count MPV Absolute Neuts (auto) Absolute Lymphs (auto) Absolute Monos (auto) Absolute Eos (auto) Neutrophils % Neutrophils % (Manual) Lymphocytes % Lymphocytes % (Manual) Monocytes % Monocytes % (Manual) Eosinophils % Basophils % Band Neutrophils Hypochromia Platelet Estimate Anisocytosis Microcytosis PT INR PTT (SP) Sodium Potassium Chloride Carbon Dioxide Anion Gap BUN Creatinine BUN/Creatinine Ratio Random Glucose Serum Osmolality Lactic Acid Calcium Magnesium Total Bilirubin Direct Bilirubin Indirect Bilirubin AST ALT Alkaline Phosphatase Creatine Kinase CK-MB (CK-2) CK-MB (CK-2) % Troponin I B-Natriuretic Peptide Serum Total Protein Albumin Urine Color Yellow Urine Appearance Sl cloudy Urine pH 5.0 Ur Specific [place] 1.015 Urine Protein Negative Urine Glucose (UA) Negative Urine Ketones Negative Urine Blood Large H Urine Nitrite Negative Urine Bilirubin Negative Urine Urobilinogen 0.2 Ur Leukocyte Esterase Large H Urine RBC 5-10 H Urine WBC 10-20 H Ur Epithelial Cells 1-3 Urine Bacteria 3+ H - EKG/XRAY/CT EKG: Atrial, Fibrillation, nonspecific ST T wave Chg Comments: HR-111 XRAY: chest - no changes noted ,mild vascular congestion enlarged cardiac shadow ,mild bilateral pleural effusion Departure - Departure Clinical Impression: Stasis dermatitis of both legs Cellulitis, leg Qualifiers: Laterality: left Qualified Code(s): L03.116 - Cellulitis of left lower limb UTI (urinary tract infection) Qualifiers: Urinary tract infection type: catheter-associated UTI Indwelling urinary catheter type: indwelling urethral catheter Encounter type: initial encounter Qualified Code(s): T83.511A - Infection and inflammatory reaction due to indwelling urethral catheter, initial encounter CHF (congestive heart failure) Qualifiers: Congestive heart failure type: unspecified congestive heart failure type Congestive heart failure chronicity: unspecified congestive heart failure chronicity Qualified Code(s): I50.9 - Heart failure, unspecified Dyspnea Qualifiers: Dyspnea type: shortness of breath Qualified Code(s): R06.02 - Shortness of breath Time of Disposition: 15:10 Disposition: Admit Patient Departure Forms: Patient Portal Self Enrollment Referrals: Pawel Cardenas MD [Primary Care Provider] - 1-2 Weeks Home Medications: Ambulatory Orders Amlodipine Besylate-Valsartan [Amlodipine Besylate/Valsa 10-160 mg] 1 tablet PO DAILY 12/25/17 Ascorbic Acid [Vitamin C] 500 mg PO DAILY 12/25/17 Aspirin 325 mg PO QD 12/25/17 Atorvastatin Calcium [Lipitor] 40 mg PO BEDTIME 12/25/17 Bupropion HCl [Bupropion HCl Sr] 150 mg PO DAILY 12/25/17 Cetirizine HCl 10 mg PO DAILY 12/25/17 Citalopram Hydrobromide [Celexa] 10 mg PO DAILY 12/25/17 Coenzyme Q10 (Ubidecarenone) [Coenzyme Q10] 100 mg PO DAILY 12/25/17 Donepezil HCl [Aricept] 5 mg PO DAILY 12/25/17 Furosemide 40 mg PO BID 12/25/17 Metformin HCl 850 mg PO BID 12/25/17 Metoprolol Tartrate 50 mg PO BEDTIME 12/25/17 Metoprolol Tartrate 100 mg PO DAILY 12/25/17 Multiple Vitamins W/ Minerals [Centrum Silver] 1 tablet PO DAILY 12/25/17 [facility]-3 Fatty Acids [Fish Oil 1000 mg] 1 cap PO DAILY 12/25/17 Pantoprazole Tablet [Protonix] 40 mg PO DAILY 12/25/17 Potassium Chloride [K-Tab] 20 meq PO DAILY 12/25/17 Sitagliptin Phosphate [Januvia] 100 mg PO DAILY 12/25/17 Tamsulosin HCl [Flomax] 0.4 mg PO DAILY 12/25/17 Warfarin Sodium 5 mg PO SUTUTHSA@1200 12/25/17 Warfarin Sodium 7.5 mg PO MOWEFR@1200 12/25/17 glyBURIDE [Diabeta] 5 mg PO BID 12/25/17 ALPRAZolam [Xanax] 0.5 mg PO BEDTIME 12/26/17 Insulin Regular (Human) [Novolin R] 1 unit IJ PRN PRN 12/26/17 Bifidobacterium Infantis [Align] 4 mg PO BID cap 12/29/17 Cefdinir [Omnicef] 300 mg PO BID #14 cap 12/29/17 Dutasteride [Avodart] 0.5 mg PO DAILY #30 cap 12/29/17 Levalbuterol Nebs [Xopenex NEBS] 1.25 mg NEB Q8H PRN #30 vial 12/29/17 Levalbuterol Nebs [Xopenex NEBS] 1.25 mg NEB RTQ8 #30 vial 12/29/17 guaiFENesin ER TAB [Mucinex Tab] 600 mg PO BID tab 12/29/17 Decision To Admit - Decistion To Admit Decision to Admit Reason: Admit from ER Decision to Admit Date: 02/26/18 - D/W Patrick Leigh-ANP/Hospitalist Decision to Admit Time: 15:09
--- NOTE | 2018-02-26 11:30 | RAD ---
EXAM DESCRIPTION: Chest,1 View CLINICAL HISTORY: sob COMPARISON: February 22, 2018 IMPRESSION: Single AP portable upright view of the chest shows enlargement of the cardiac silhouette. Pulmonary vasculature remains mildly prominent. Sternotomy wires with evidence of cardiac valve replacement are noted. Increased density in the lower lung lacey right greater than left is again seen consistent with moderate bilateral pleural effusions and associated lower lobe atelectasis or infiltrates overall unchanged from previous. Electronically signed by: Gilmar Naranjo MD 02/26/2018 11:29 AM CDT
[2018-02-26] MEDS ORDERED: BUMETANIDE 0.25 MG/ML VIAL IV ONE (11:35)
[2018-02-26] MEDS ORDERED: TETANUS,DIPHTHERIA,PERTUSSIS 1 EA SYG IM ONE (11:44)
[2018-02-26] MEDS ORDERED: VANCOMYCIN HCL INJ 1,000 MG, VANCOMYCIN HCL INJ 250 MG in SODIUM CHLORIDE 0.9% 250ML 25... IVPB ONE (12:13)
[2018-02-26] MEDS ORDERED: VANCOMYCIN HCL INJ 1,000 MG VIAL IVPB ONE ×2 (12:17→12:26)
[2018-02-26] MEDS ORDERED: VANCOMYCIN HCL INJ 500 MG VIAL ONE ×2 (12:18→12:26)
[2018-02-26] MEDS ORDERED: SODIUM CHLORIDE 0.9% 250ML 250 ML ONE (12:18)
[2018-02-26] MEDS ORDERED: MEROPENEM 500 MG in SODIUM CHL 0.9% 50ML MIN-BAG+ 50 ML IVPB ONE (13:46)
[2018-02-26] MEDS ORDERED: SODIUM CHL 0.9% 50ML MIN-BAG+ 50 ML IVPB ONE ×2 (14:49→16:54)
[2018-02-26] MEDS ORDERED: MEROPENEM 500 MG VIAL IVPB ONE ×3 (14:49→20:18)
--- NOTE | 2018-02-26 15:40 | HP ---
SUPERVISING PHYSICIAN: Matthew Guy M.D. CHIEF COMPLAINT: Shortness of breath and swelling. HISTORY OF PRESENT ILLNESS: Mr. Zapata is a 77 year-old male patient who currently resides at [facility]. He came to the Emergency Room complaining of shortness of breath which has worsened over the last month along with generalized edema mostly in his legs. When he came to the Emergency Room, he was on CPAP on the ambulance. Anyhow, in the Emergency Room his workup included a chest x-ray as well as labs. He actually came to the Emergency Room 4 days ago with similar symptoms. At that point, his INR was 4.5 so he was instructed to hold his Warfarin for a couple of days. Also, he was found to have some congestive heart failure and they increased his Lasix to 40 mg twice a day for 3 days. This did not really help, obviously, and so he came back to the Emergency Room today. His states that he was hospitalized for pneumonia back in December and ended up going to [facility] after that. Once he left [facility] he was discharged back to [facility] but they did not resume his Lasix and she states that his swelling has gradually worsened since then. In our Emergency Room here he was noted to have a white count of 25,000 with 15% bands. His INR is 1.9. Arterial blood gas showed a pH of 7.4, PCO2 of 31, PO2 of 389, bicarb 18.9, base excess of -4.6 with O2 saturation of 100. Followup ABG really did not show a whole lot of worsening after he was taken off of the BiPAP. His PO2 did go down to 133 but he was on 2 liters via nasal cannula. Chemistry showed a hyperkalemia of 5.6 and creatinine was 1.32. Lactic acid as 7.1, magnesium 1.4, bilirubin 1.8. BNP is 2390. Albumin 2.9. Chest x-ray is consistent with bilateral pleural effusions right greater than left with a potential for underlying pneumonia. His urine was cloudy with large leukocyte esterase. He did have 5 to 10 RBCs and 10 to 20 WBCs and 3+ urine bacteria. He also was noted to have cellulitis of the left lower extremity. For all of these reasons he was referred for admission. At time of examination the patient is alert and obviously short of breath. He is on 2 liters. O2 saturations are acceptable right now but he is working mildly to moderately for breathing at this time. He basically wants something to drink is his main complaint. His is at bedside and I did discuss with her code status and she states that he is going to be a full code at this time. PAST MEDICAL HISTORY: 1. Congestive heart failure. 2. Coronary artery disease. 3. Aortic valve disease. 4. Diabetes mellitus type 2. 5. Atrial fibrillation on chronic Coumadin therapy. 6. Hypertension. 7. Peripheral vascular disease. 8. Peripheral arterial disease. 9. Cerebrovascular accident. 10. Hyperlipidemia. 11. Bladder cancer. 12. Gastroesophageal reflux disease. 13. Dementia. 14. Depression. PAST SURGICAL HISTORY: 1. Tonsillectomy. 2. Cholecystectomy. 3. Bilateral iliac stents. 4. Bladder surgery for bladder cancer. 5. Multiple incisions and drainages of anal abscesses. 6. Rhinoplasty for deviated septum. 7. 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 8. Left thoracotomy for pleural mass but there was reportedly no malignancy. CURRENT MEDICATIONS: 1. Acetaminophen 500 mg 1 to 2 tabs p.o. p.r.n. every 6 hours for mild pain or fever. 2. Albuterol 2.5 mg nebulizer every 4 hours p.r.n. for shortness of breath. 3. Xanax 0.5 mg p.o. at bedtime. 4. Vitamin C 500 mg p.o. daily. 5. Aspirin 325 mg p.o. daily. 6. Atorvastatin 40 mg p.o. at bedtime. 7. Bupropion 150 mg p.o. daily. 8. Citalopram 10 mg p.o. daily. 9. Co-enzyme Q10, 100 mg p.o. daily. 10. Diphenhydramine/Acetaminophen 1 tab p.o. at bedtime. 11. Aricept 5 mg p.o. daily. 12. Avodart 0.5 mg p.o. daily. 13. Furosemide 40 mg p.o. daily. 14. Glyburide 5 mg p.o. b.i.d. 15. Guaifenesin 400 mg p.o. b.i.d. 16. Lactobacillus 1 capsule p.o. t.i.d. 17. Keppra 500 mg p.o. at bedtime. 18. Milk of Magnesia 30 mL p.o. p.r.n. constipation. 19. Metformin 500 mg daily. 20. Metoprolol 25 mg p.o. b.i.d. 21. Multivitamin 1 tab p.o. daily. 22. [place]-3 fatty acid 1 capsule p.o. daily. 23. Zofran 4 mg p.o. as needed for nausea. 24. Pantoprazole 40 mg p.o. daily. 25. Potassium chloride 20 mEq p.o. daily. 26. Januvia 100 mg p.o. daily. 27. Flomax 0.4 mg p.o. daily. 28. Aspercreme 10% as needed for muscle aches. 29. Warfarin 7.5 mg Sunday, Sunday and Sunday and 5 mg Sunday, , Sunday and Sunday. ALLERGIES: NO KNOWN DRUG ALLERGIES. FAMILY HISTORY: Diabetes, hypertension, prostate cancer in his father, cardiovascular disease, peripheral vascular disease. SOCIAL HISTORY: The patient is . He is currently residing at [facility]. He is a smoker prior to these illnesses, likely not right now that he is at [facility]. He drinks occasionally. REVIEW OF SYSTEMS: CONSTITUTIONAL: Positive for generalized weakness. No fever or chills. He has had some weight gain as far as the swelling goes. HEENT: No headaches, vision changes, ear pain, nasal congestion or throat pain. RESPIRATORY: Positive for some shortness of breath. No cough, hemoptysis or pleuritic chest pain. CARDIOVASCULAR: No chest pain, palpitations, but he has had some peripheral edema. GASTROINTESTINAL: No nausea, vomiting, diarrhea, constipation or abdominal pain. GENITOURINARY: No dysuria, frequency or flank pain, but he does have a chronic catheter from previous bladder surgery. HEMATOLOGIC: Positive for easy bruising. No transfusion reaction. ENDOCRINE: No polydipsia, polyuria or polyphagia. No heat or cold intolerance. MUSCULOSKELETAL: He has had muscle weakness but no joint pain, joint swelling or muscle cramps. NEUROLOGIC: No syncope. No paresthesias. No seizures. PHYSICAL EXAMINATION: VITAL SIGNS: Blood pressure 121/54, heart rate 77, respiratory rate 24, temperature 100.4, oxygen saturation 94%. GENERAL: Mr. Zapata is a 77 year-old male patient who is acutely ill in appearance at this time. HEENT: Head is normocephalic and atraumatic. Eyes: Pupils are equal and reactive. Nose: No drainage. Throat: With dry mucosa. NECK: Supple. Midline trachea. No visible jugular venous distention CHEST: Symmetrical with equal rise and fall of the chest with inspiration and expiration. Lung sounds are diminished in the bases with bibasilar rales. There is no active wheezing. CARDIOVASCULAR: Irregular rate and rhythm. Normal S1 and S2. There is a small systolic murmur noted. ABDOMEN: Soft, obese. Positive bowel sounds. GENITOURINARY: He has a Depends in place actually. EXTREMITIES: Lower extremities with 4+ pitting edema. There is cellulitis on the left leg. NEUROLOGIC: The patient is alert. Answers questions but not always accurately. His was at bedside. LABORATORY: Labs and films as discussed in the history of present illness. ASSESSMENT: 1. Severe sepsis secondary to urinary tract infection, cellulitis and possibly underlying healthcare associated pneumonia. 2. Congestive heart failure exacerbation with anasarca. 3. Diabetes mellitus. 4. Hyperkalemia with acute kidney injury. 5. Atrial fibrillation on chronic Warfarin therapy. 6. Hypomagnesemia. 7. Hypoalbuminemia likely secondary to protein calorie malnutrition. 8. Decreased physical mobility. PLAN: At this time, the patient already had cultures drawn and been started on Merrem as well as vancomycin. This will cover urinary tract infection, cellulitis and a possible underlying healthcare associated pneumonia. However, given the fact he has a co-existing congestive heart failure exacerbation, obviously no aggressive fluid boluses will be given at this time in addition to the fact he is not hypotensive. His lactate is elevated but he was also hypoxic upon arrival. Will repeat a lactic acid level and see if there has been any improvement. I am going to put him on sliding scale insulin and resume his home diabetes medications as well. I will resume all of his home medications which should address his atrial fibrillation as well. The rate was high in the E. R. but now seems to be better controlled. His INR is subtherapeutic at 1.9 but it was actually high 4 days ago, so I will resume his Warfarin at 5 mg. I will replace his magnesium and start him on scheduled diuretics with actual albumin to be given prior to the Furosemide. I have consulted Physical Therapy to work with him as well as he has had a decrease in mobility since he started to get swelling. [facility][id number] [facility]
[2018-02-26] MEDS ORDERED: MAGNESIUM SULFATE PREMIX 2GM 2 GM in PREMIX BAG 1 BAG IVPB ONE (16:47)
[2018-02-26] MEDS ORDERED: DEXTROSE 50% 25 GM/50 ML SYG IV PRN (16:49)
[2018-02-26] MEDS ORDERED: GLUCAGON INJ 1 MG VIAL SUBCU PRN (16:49)
[2018-02-26] MEDS: IV SET AND CAP CHANGE INJ INJ SCH (16:52)
[2018-02-26] MEDS ORDERED: MAGNESIUM SULFATE PREMIX 2GM 50 ML IVPB ONE (16:53)
[2018-02-26] MEDS: FUROSEMIDE INJ 40 MG/4 ML VIAL IV SCH (16:56)
[2018-02-26] MEDS ORDERED: VANCOMYCIN PER PHARMACY IVPB SCH (17:00)
[2018-02-26] MEDS ORDERED: DIPHENHYDRAMINE ACETAMINOPHEN PO PRN (17:11)
[2018-02-26] MEDS ORDERED: [UNRECOGNIZED DRUG - OTHER] PO PRN (17:11)
[2018-02-26] MEDS ORDERED: ONDANSETRON 4 MG TAB PO SCH (17:15)
[2018-02-26] MEDS ORDERED: ALBUMIN 100 ML IVPB ONE (17:17)
[2018-02-26] MEDS: ALBUMIN 25 GM in PREMIX BOTTLE 1 BOTTLE IVPB SCH (17:18)
[2018-02-26] MEDS: MEROPENEM 500 MG in SODIUM CHL 0.9% 50ML MIN-BAG+ 50 ML IVPB SCH (17:30)
[2018-02-26] MEDS ORDERED: MAGNESIUM HYDROXIDE 30 ML UD PO PRN (17:30)
[2018-02-26] MEDS: ASPIRIN TABLET 325 MG TAB PO SCH (18:00)
[2018-02-26] MEDS ORDERED: ATORVASTATIN 20 MG TAB PO ONE (20:11)
[2018-02-26] MEDS ORDERED: LACTOBACILLUS 1 TAB ONE ×2 (20:12→20:24)
[2018-02-26] MEDS ORDERED: METOPROLOL TARTRATE 25 MG TAB ONE (20:14)
[2018-02-26] MEDS ORDERED: levETIRAcetam 250 MG TAB ONE (20:14)
[2018-02-26] MEDS ORDERED: ALBUMIN 50 ML IVPB ONE ×2 (20:17→20:23)
[2018-02-26] MEDS ORDERED: SODIUM CHLORIDE 0.9% 50ML 50 ML ONE (20:23)
[2018-02-26] MEDS: IPRATROPIUM/ALBUTEROL 3 ML VIAL NEB SCH (20:50)
[2018-02-26] MEDS: glyBURIDE 5 MG TAB PO SCH (20:52)
[2018-02-26] MEDS: INSULIN LISPRO 100 UNITS/ML PEN SUBCU SCH (20:52)
[2018-02-26] MEDS: NON-FORMULARY MEDICATION 1 EA MIS (Lactobacillus [Acidophilus Lactobacilli] 1 CAP) PO SCH (20:54)
[2018-02-26] MEDS: METOPROLOL TARTRATE 50 MG TAB PO SCH (20:55)
[2018-02-26] MEDS: ALPRAZolam 0.5 MG TAB PO SCH (20:56)
[2018-02-26] MEDS: guaiFENesin ER TAB 600 MG TAB PO SCH (20:56)
[2018-02-26] MEDS ORDERED: NON-FORMULARY MEDICATION 1 EA MIS (Levetiracetam [Keppra] 500 MG) PO SCH (21:00)
[2018-02-26] MEDS ORDERED: NON-FORMULARY MEDICATION 1 EA MIS (Atorvastatin Calcium [Lipitor] 40 MG) PO SCH (21:00)
[2018-02-27] MEDS: ALBUMIN 25 GM in PREMIX BOTTLE 1 BOTTLE IVPB SCH ×4 (00:19→18:18)
[2018-02-27] MEDS: FUROSEMIDE INJ 40 MG/4 ML VIAL IV SCH ×4 (00:51→19:37)
[2018-02-27] MEDS: MEROPENEM 500 MG in SODIUM CHL 0.9% 50ML MIN-BAG+ 50 ML IVPB SCH ×3 (00:51→17:01)
[2018-02-27] MEDS: OMEPRAZOLE CAP 20 MG CAP PO SCH (06:24)
--- NOTE | 2018-02-27 07:11 | RAD ---
EXAM DESCRIPTION: Chest,1 View CLINICAL HISTORY: Pneumonia FINDINGS/ IMPRESSION: Comparison 02/26/2018 Cardiomegaly. Atherosclerotic aorta. Moderate right pleural effusion. Mild increased density in the lower lobes likely atelectasis. Some of the opacity may relate to an infectious infiltrate/pneumonia Electronically signed by: Felice Theodore MD 02/27/2018 7:10 AM CDT
[2018-02-27] MEDS: INSULIN LISPRO 100 UNITS/ML PEN SUBCU SCH ×4 (07:16→21:22)
[2018-02-27] MEDS: IPRATROPIUM/ALBUTEROL 3 ML VIAL NEB SCH ×4 (07:41→19:35)
[2018-02-27] MEDS ORDERED: SODIUM CHLORIDE 0.9% 1000ML 1,000 ML IVS ONE (08:49)
[2018-02-27] MEDS ORDERED: SODIUM CHL 0.9% 50ML MIN-BAG+ 50 ML IVPB ONE ×3 (09:24→19:34)
[2018-02-27] MEDS ORDERED: SODIUM CHLORIDE 0.9% 500ML 500 ML ONE (09:25)
[2018-02-27] MEDS ORDERED: VANCOMYCIN HCL INJ 1,000 MG VIAL IVPB ONE (09:26)
[2018-02-27] MEDS ORDERED: MEROPENEM 500 MG VIAL IVPB ONE ×3 (09:26→19:35)
[2018-02-27] MEDS ORDERED: ALBUMIN 100 ML IVPB ONE ×2 (09:29→18:07)
[2018-02-27] MEDS: METOPROLOL TARTRATE 50 MG TAB PO SCH (09:44)
[2018-02-27] MEDS: ASPIRIN TABLET 325 MG TAB PO SCH (09:44)
[2018-02-27] MEDS: DUTASTERIDE 0.5 MG CAP PO SCH (09:45)
[2018-02-27] MEDS: glyBURIDE 5 MG TAB PO SCH ×2 (09:45→17:01)
[2018-02-27] MEDS: guaiFENesin ER TAB 600 MG TAB PO SCH ×3 (09:46→20:51)
[2018-02-27] MEDS: DONEPEZIL HCL 5 MG TAB PO SCH (09:46)
[2018-02-27] MEDS: CITALOPRAM HBR 20 MG TAB PO SCH (09:47)
[2018-02-27] MEDS: MULTIPLE VITAMINS W/ MINERALS 1 EA TAB PO SCH (09:48)
[2018-02-27] MEDS: SITagliptin 50 MG TAB PO SCH (09:48)
[2018-02-27] MEDS: VANCOMYCIN HCL INJ 1,750 MG in SODIUM CHLORIDE 0.9% 500ML 500 ML IVPB SCH (09:50)
[2018-02-27] MEDS: metFORMIN HCL 500 MG TAB PO SCH (09:51)
[2018-02-27] MEDS: TAMSULOSIN 0.4 MG CAP PO SCH (09:52)
--- NOTE | 2018-02-27 10:25 | PN ---
SUPERVISING PHYSICIAN: Matthew Guy MD DATE: 02/27/18 SUBJECTIVE: The patient states he feels a little bit better than he did yesterday. He is still confused from his chronic dementia, but he is sitting up in a chair and actually looks better than he did yesterday. He denies shortness of breath, any kind of pain at this time. He is actually wanting to go back to bed. However, physical therapy is working with him. OBJECTIVE: VITAL SIGNS: Blood pressure 92/64. Heart rate 112. Respiratory rate 20. Temperature 98.4. Oxygen saturation 95%. GENERAL: Mr. Zapata is a 77-year-old male patient who still looks significantly ill at this time, but a little bit improved from yesterday. NEUROLOGIC: Alert, but confused. He answers questions pretty much appropriately, but does not know the exact date. LUNGS: Diminished at the bases with bibasilar rales, but no active wheezing. CARDIOVASCULAR: Irregular rate and rhythm which is tachycardic at this time as well. ABDOMEN: Soft, obese. Positive bowel sounds. Pitting edema to the abdomen. GENITOURINARY: Deferred. EXTREMITIES: Lower extremities with 4+ pitting edema. The left leg cellulitis looks a little bit better than it did also. LABORATORY: White count improved to 20 from 25.6. Hemoglobin 8.6, hematocrit 28.5, platelet count 230. Neutrophils 84%. Bands have gone down to 11 from 15. INR 1.8. Chemistry shows sodium 136, potassium 4.0, chloride 102, CO2 26, BUN 22, creatinine 1.18, glucose 120, calcium 8.2. ASSESSMENT: 1. Severe sepsis secondary to urinary tract infection, cellulitis and possible underlying healthcare associated pneumonia. 2. Congestive heart failure exacerbation with anasarca. 3. Diabetes mellitus. 4. Hyperkalemia with acute kidney injury. 5. Atrial fibrillation on chronic warfarin therapy. 6. Hypomagnesemia. 7. Hypoalbuminemia likely secondary to protein calorie malnutrition. 8. Decreased physical mobility. PLAN: Currently, cultures are still reading negative, so we will continue current antibiotics. I have given him albumin followed by doses of IV Lasix and very low output and his urine is concentrated. I feel like he is probably intravascularly dry, so I will give him a little bit of IV fluids. His lactate did improve yesterday. Glucoses seem to be controlled with current therapy. Physical therapy is working with him as well. He is currently sitting up to the chair and doing well with that. We will pretty much continue all current therapy and will be adding 1 liter of crystalloid fluids today to see if that clears up his urine a little bit and improves his blood pressure. #[id number] [facility]
[2018-02-27] MEDS: ASCORBIC ACID 500 MG TAB PO SCH (10:37)
[2018-02-27] MEDS: NON-FORMULARY MEDICATION 1 EA MIS (Lactobacillus [Acidophilus Lactobacilli] 1 CAP) PO SCH ×2 (11:30→15:45)
[2018-02-27] MEDS: WARFARIN SODIUM 5 MG TAB PO SCH (12:11)
[2018-02-27] MEDS ORDERED: DIGOXIN INJ 0.5 MG/2 ML AMP IV ONE (17:53)
[2018-02-27] MEDS: METOPROLOL TARTRATE 25 MG TAB PO SCH (17:55)
[2018-02-27] MEDS ORDERED: SODIUM CHLORIDE 0.9% 100ML 0 ML IVPB ONE (18:07)
[2018-02-27] MEDS: levETIRAcetam 250 MG TAB PO SCH (20:51)
[2018-02-27] MEDS: ATORVASTATIN 20 MG TAB PO SCH (20:51)
[2018-02-27] MEDS: BIFIDOBACTERIUM INFANTIS 4 MG CAP PO SCH (20:51)
[2018-02-27] MEDS: ALPRAZolam 0.5 MG TAB PO SCH (20:51)
[2018-02-28] MEDS: MEROPENEM 500 MG in SODIUM CHL 0.9% 50ML MIN-BAG+ 50 ML IVPB SCH ×2 (00:29→09:15)
[2018-02-28] MEDS ORDERED: ALBUMIN 100 ML IVPB ONE ×4 (01:08→19:52)
[2018-02-28] MEDS: ALBUMIN 25 GM in PREMIX BOTTLE 1 BOTTLE IVPB SCH (02:39)
[2018-02-28] MEDS: FUROSEMIDE INJ 40 MG/4 ML VIAL IV SCH (03:36)
[2018-02-28] MEDS: OMEPRAZOLE CAP 20 MG CAP PO SCH (06:14)
[2018-02-28] MEDS: INSULIN LISPRO 100 UNITS/ML PEN SUBCU SCH ×4 (07:10→21:45)
[2018-02-28] MEDS: METOPROLOL TARTRATE 25 MG TAB PO SCH ×2 (07:59→17:16)
[2018-02-28] MEDS: metFORMIN HCL 500 MG TAB PO SCH (07:59)
[2018-02-28] MEDS: glyBURIDE 5 MG TAB PO SCH ×2 (07:59→17:16)
[2018-02-28] MEDS: IPRATROPIUM/ALBUTEROL 3 ML VIAL NEB SCH ×4 (08:17→20:45)
[2018-02-28] MEDS ORDERED: SODIUM CHL 0.9% 50ML MIN-BAG+ 50 ML IVPB ONE (08:29)
[2018-02-28] MEDS ORDERED: MEROPENEM 500 MG VIAL IVPB ONE (08:29)
[2018-02-28] MEDS ORDERED: SODIUM CHLORIDE 0.9% 500ML 500 ML ONE (08:29)
[2018-02-28] MEDS ORDERED: VANCOMYCIN HCL INJ 1,000 MG VIAL IVPB ONE (08:29)
[2018-02-28] MEDS ORDERED: POTASSIUM CHLORIDE 20 MEQ TAB PO ONE (09:10)
[2018-02-28] MEDS: guaiFENesin ER TAB 600 MG TAB PO SCH ×2 (09:19→20:09)
[2018-02-28] MEDS: CITALOPRAM HBR 20 MG TAB PO SCH (09:19)
[2018-02-28] MEDS: MULTIPLE VITAMINS W/ MINERALS 1 EA TAB PO SCH (09:19)
[2018-02-28] MEDS: TAMSULOSIN 0.4 MG CAP PO SCH (09:19)
[2018-02-28] MEDS: DONEPEZIL HCL 5 MG TAB PO SCH (09:20)
[2018-02-28] MEDS: ASPIRIN TABLET 325 MG TAB PO SCH (09:20)
[2018-02-28] MEDS: DUTASTERIDE 0.5 MG CAP PO SCH (09:20)
[2018-02-28] MEDS: ASCORBIC ACID 500 MG TAB PO SCH (09:20)
[2018-02-28] MEDS: SITagliptin 50 MG TAB PO SCH (09:20)
[2018-02-28] MEDS: BIFIDOBACTERIUM INFANTIS 4 MG CAP PO SCH ×2 (09:20→20:09)
--- NOTE | 2018-02-28 09:24 | CT ---
EXAM DESCRIPTION: Abdoment/Pelvis w/o Contrast CLINICAL HISTORY: 77 years Male, sepsis, rule out abdominal source COMPARISON: CT abdomen and pelvis without contrast dated 12/25/2017. TECHNIQUE: Contiguous 3 mm axial images were obtained from the lung bases to the level of the proximal femora without the administration of intravenous or oral contrast. Sagittal and coronal reconstructions were reviewed. FINDINGS: Limited evaluation of the solid organs due to the lack of intravenous contrast. THORAX: The heart is enlarged in size. Bilateral pleural effusions larger on the right side are identified. LIVER: The liver demonstrates normal size and density with no intrahepatic biliary ductal dilatation. GALLBLADDER: Surgically absent PANCREAS: Appears normal with no cystic or solid lesions. SPLEEN: Normal ADRENAL GLANDS: Normal with no nodules or masses. KIDNEYS: Streak artifact limits evaluation of the densities of the bilateral renal cysts. However they grossly appear to be unchanged in number and size compared to prior examination. 5.1 mm nonobstructive calculus is noted in the upper pole of the right kidney. The visualized ureters appear grossly unremarkable. STOMACH: The stomach is not well-distended limiting detailed evaluation. The left hemiabdomen is not visualized, limiting evaluation. SMALL BOWEL: The visualized small bowel loops appear normal with no evidence of bowel obstruction. LARGE BOWEL: The colon is adequately distended with no gross abnormality. No free intraperitoneal air. Moderate volume ascites is noted. RETROPERITONEUM: The abdominal aorta is nonaneurysmal with moderate atherosclerosis. Stent grafts are identified in the bilateral common iliac arteries. The inferior vena cava is normal in size and caliber. No abnormally enlarged retroperitoneal lymph nodes are identified. URINARY BLADDER: The urinary bladder is collapsed secondary to Stanley catheterization. The prostate gland seminal vesicles appear normal. ADDITIONAL FINDINGS: There is a right inguinal hernia with herniation of intra-abdominal fluid. Diffuse soft tissue edema is identified as well. BONES: Moderate degenerative changes are identified in the visualized bones.No evidence of osteophytic or osteoblastic lesions. IMPRESSION: 1. Bilateral pleural effusions larger on the right side are again noted. 2. Moderate volume ascites. 3. Multiple bilateral hypodense renal lesions are identified. There is limited evaluation of this lesions due to streak artifact. However these appear grossly unchanged in size and number compared to prior examination. This exam was performed according to our departmental dose-optimization program, which includes automated exposure control, adjustment of the mA and/or kV according to patient size and/or use of iterative reconstruction technique. Electronically signed by: Natalie Francis MD 02/28/2018 9:23 AM CDT
[2018-02-28] MEDS ORDERED: ALBUMIN 25 GM in PREMIX BOTTLE 1 BOTTLE IVPB SCH (09:30)
[2018-02-28] MEDS ORDERED: ONDANSETRON 4 MG TAB PO PRN (09:30)
[2018-02-28] MEDS: VANCOMYCIN HCL INJ 1,750 MG in SODIUM CHLORIDE 0.9% 500ML 500 ML IVPB SCH (09:30)
[2018-02-28] MEDS ORDERED: SODIUM CHLORIDE 0.9% 100ML 100 ML IVPB ONE ×2 (10:18→21:03)
[2018-02-28] MEDS ORDERED: FUROSEMIDE INJ 100 MG/10 ML VIAL ONE ×2 (10:18→21:03)
[2018-02-28] MEDS ORDERED: SODIUM CHLORIDE 0.9% 1000ML 1,000 ML ONE (10:20)
[2018-02-28] MEDS ORDERED: ACETAMINOPHEN 325 MG TAB ONE (10:26)
[2018-02-28] MEDS: ALBUMIN 25 GM in PREMIX BOTTLE 2 BOTTLE IVPB SCH ×3 (10:27→22:29)
[2018-02-28] MEDS: ACETAMINOPHEN 325 MG TAB PO PRN ×2 (10:27→17:16)
[2018-02-28] MEDS: SODIUM CHLORIDE 0.9% 1000ML 1,000 ML IVS PRN (10:28)
[2018-02-28] MEDS: SODIUM CHLORIDE 0.9% IV SCH ×2 (11:28→21:38)
[2018-02-28] MEDS: FUROSEMIDE IV SCH ×2 (11:28→21:38)
[2018-02-28] MEDS: WARFARIN SODIUM 5 MG TAB PO SCH (12:21)
--- NOTE | 2018-02-28 13:09 | PN ---
SUPERVISING PHYSICIAN: Matthew Guy MD DATE: 02/28/18 SUBJECTIVE: The patient had no adverse events overnight. He is actually laying in bed with his at the bedside. He does complain of any pain or any issues at this point. OBJECTIVE: VITAL SIGNS: Blood pressure 135/76. Heart rate 119. Respiratory rate 22. Temperature 97.4. Oxygen saturation 93%. GENERAL: Mr. Zapata is a 77-year-old male patient in no severe distress currently. NEUROLOGIC: Alert, but confused, but follows commands. LUNGS: Diminished at the bases with bibasilar rales. CARDIOVASCULAR: Irregular rate and rhythm. Normal S1, S2. Tachycardic. ABDOMEN: Soft, obese. Positive bowel sounds. Edema noted to the abdomen. GENITOURINARY: Deferred. Stanley catheter is in place with dark yellow urine. EXTREMITIES: Lower extremities with 4+ pitting edema. The open wound on his left leg are weeping. LABORATORY: White count 15,000, hemoglobin 9.0, hematocrit 29.7, platelet count 226. Sodium 137, potassium 3.2, chloride 100, CO2 27, BUN 25, creatinine 1.22. Glucose 40, magnesium 1.7, bilirubin 1.4 which is an improvement from 1.8 a couple of days ago. Albumin 3.4. He did have results in his urine culture which is Enterococcus which is resistant to Cipro, Levaquin and tetracycline, but sensitive to vancomycin, Macrobid and ampicillin. CT of the abdomen and pelvis which was done shows bilateral pleural effusions, right greater than left. Moderate volume ascites. Multiple bilateral hypodense renal lesions, unchanged from previous examination. ASSESSMENT: 1. Severe sepsis secondary to urinary tract infection, cellulitis and possible underlying healthcare associated pneumonia. 2. Congestive heart failure exacerbation with anasarca. 3. Diabetes mellitus. 4. Hyperkalemia with acute kidney injury. 5. Atrial fibrillation on chronic warfarin therapy. 6. Hypomagnesemia. 7. Hypoalbuminemia likely secondary to protein calorie malnutrition. 8. Decreased physical mobility. PLAN: We will continue the vancomycin, but deescalate the Merrem to Unasyn given the culture results. I have also spoken with Dr. Albarran regarding his anasarca. He has not really diuresed a whole lot and so we are going to put him on a Lasix drip and increase the albumin to q.6h. from q.8h. I have also written orders replace his potassium and magnesium. I discussed his condition with his at the bedside and answered all the appropriate questions. #[id number] [facility]
[2018-02-28] MEDS ORDERED: MAGNESIUM SULFATE PREMIX 2GM 2 GM in PREMIX BAG 1 BAG IVPB ONE (14:00)
[2018-02-28] MEDS ORDERED: SODIUM CHL 0.9% 100ML MINI-BAG 100 ML IVPB ONE ×2 (14:01→19:53)
[2018-02-28] MEDS ORDERED: AMPICILLIN & SULBACTAM SODIUM 3 GM VIAL ONE ×2 (14:01→19:53)
[2018-02-28] MEDS ORDERED: MAGNESIUM SULFATE PREMIX 2GM 50 ML IVPB ONE (14:01)
[2018-02-28] MEDS: AMPICILLIN & SULBACTAM SODIUM 3 GM in SODIUM CHL 0.9% 100ML MINI-BAG 100 ML IVPB SCH ×2 (14:04→20:08)
[2018-02-28] MEDS: levETIRAcetam 250 MG TAB PO SCH (20:09)
[2018-02-28] MEDS: ATORVASTATIN 20 MG TAB PO SCH (20:09)
[2018-02-28] MEDS: ALPRAZolam 0.5 MG TAB PO SCH (20:09)
[2018-03-01] MEDS ORDERED: SODIUM CHL 0.9% 100ML MINI-BAG 100 ML IVPB ONE ×5 (01:23→19:53)
[2018-03-01] MEDS ORDERED: AMPICILLIN & SULBACTAM SODIUM 3 GM VIAL ONE ×5 (01:24→19:54)
[2018-03-01] MEDS: AMPICILLIN & SULBACTAM SODIUM 3 GM in SODIUM CHL 0.9% 100ML MINI-BAG 100 ML IVPB SCH ×4 (01:33→20:13)
[2018-03-01] MEDS: SODIUM CHLORIDE 0.9% 1000ML 1,000 ML IVS PRN (01:37)
[2018-03-01] MEDS ORDERED: ALBUMIN 100 ML IVPB ONE ×4 (03:41→23:38)
[2018-03-01] MEDS: ACETAMINOPHEN 325 MG TAB PO PRN ×3 (03:42→20:12)
[2018-03-01] MEDS: ALBUMIN 25 GM in PREMIX BOTTLE 2 BOTTLE IVPB SCH ×4 (03:43→23:42)
[2018-03-01] MEDS: OMEPRAZOLE CAP 20 MG CAP PO SCH (06:17)
[2018-03-01] MEDS: INSULIN LISPRO 100 UNITS/ML PEN SUBCU SCH ×4 (07:14→20:59)
[2018-03-01] MEDS: METOPROLOL TARTRATE 25 MG TAB PO SCH ×2 (08:06→16:53)
[2018-03-01] MEDS: metFORMIN HCL 500 MG TAB PO SCH (08:06)
[2018-03-01] MEDS: glyBURIDE 5 MG TAB PO SCH ×2 (08:06→16:53)
[2018-03-01] MEDS ORDERED: FUROSEMIDE INJ 100 MG/10 ML VIAL ONE ×3 (08:44→19:58)
[2018-03-01] MEDS ORDERED: SODIUM CHLORIDE 0.9% 500ML 0 ML ONE (08:45)
[2018-03-01] MEDS ORDERED: VANCOMYCIN HCL INJ 1,000 MG VIAL IVPB ONE (08:45)
[2018-03-01] MEDS ORDERED: SODIUM CHLORIDE 0.9% 100ML 100 ML IVPB ONE ×3 (08:45→19:58)
[2018-03-01] MEDS: IPRATROPIUM/ALBUTEROL 3 ML VIAL NEB SCH ×4 (08:47→20:25)
[2018-03-01] MEDS: guaiFENesin ER TAB 600 MG TAB PO SCH ×2 (09:03→20:37)
[2018-03-01] MEDS: TAMSULOSIN 0.4 MG CAP PO SCH (09:03)
[2018-03-01] MEDS: ASPIRIN TABLET 325 MG TAB PO SCH (09:03)
[2018-03-01] MEDS: CITALOPRAM HBR 20 MG TAB PO SCH (09:03)
[2018-03-01] MEDS: ASCORBIC ACID 500 MG TAB PO SCH (09:04)
[2018-03-01] MEDS: SITagliptin 50 MG TAB PO SCH (09:04)
[2018-03-01] MEDS: BIFIDOBACTERIUM INFANTIS 4 MG CAP PO SCH ×2 (09:04→20:37)
[2018-03-01] MEDS: MULTIPLE VITAMINS W/ MINERALS 1 EA TAB PO SCH (09:04)
[2018-03-01] MEDS: DUTASTERIDE 0.5 MG CAP PO SCH (09:04)
[2018-03-01] MEDS: DONEPEZIL HCL 5 MG TAB PO SCH (09:05)
[2018-03-01] MEDS: FUROSEMIDE IV SCH ×2 (09:38→20:07)
[2018-03-01] MEDS: SODIUM CHLORIDE 0.9% IV SCH ×2 (09:38→20:07)
[2018-03-01] MEDS ORDERED: VANCOMYCIN HCL INJ 500 MG VIAL ONE (09:54)
[2018-03-01] MEDS ORDERED: SODIUM CHLORIDE 0.9% 250ML 250 ML ONE (09:54)
[2018-03-01] MEDS: VANCOMYCIN HCL INJ 1,000 MG, VANCOMYCIN HCL INJ 500 MG in SODIUM CHLORIDE 0.9% 250ML 25... IVPB SCH (10:20)
[2018-03-01] MEDS: SODIUM CHLORIDE 0.9% (FLUSH) 10 ML SYG IV SCH ×2 (10:21→20:37)
[2018-03-01] MEDS: VANCOMYCIN HCL INJ 1,750 MG in SODIUM CHLORIDE 0.9% 500ML 500 ML IVPB SCH (10:22)
[2018-03-01] MEDS ORDERED: POTASSIUM CHLORIDE 20 MEQ TAB PO ONE ×2 (11:23→20:56)
[2018-03-01] MEDS ORDERED: WARFARIN SODIUM 2.5 MG TAB PO ONE (12:00)
[2018-03-01] MEDS: WARFARIN SODIUM 5 MG TAB PO SCH (12:33)
[2018-03-01] MEDS: IV SET AND CAP CHANGE INJ INJ SCH (17:00)
[2018-03-01] MEDS: ATORVASTATIN 20 MG TAB PO SCH (20:37)
[2018-03-01] MEDS: ALPRAZolam 0.5 MG TAB PO SCH (20:37)
[2018-03-01] MEDS: levETIRAcetam 250 MG TAB PO SCH (20:37)
[2018-03-01] MEDS: levoFLOXacin 750MG IV 750 MG in PREMIX BAG 1 BAG IVPB SCH (21:54)
--- NOTE | 2018-03-01 21:54 | PN ---
DATE: 03/01/18 SUPERVISING PHYSICIAN: Matthew Guy M.D. SUBJECTIVE: The patient is alert this morning. Says he feels better than on admission. He did have a large loose bowel movement this morning. Other than that he has had no complaints of pain and notes that his shortness of breath has improved. OBJECTIVE: VITAL SIGNS: Remains afebrile. T max 98.2, pulse 110, blood pressure 123/80, respirations 22, satting 98% on nasal cannula at rest. I's and O's show a negative balance of 1,010 with 3140 in, 4150 out. Weight now down to 112.1 kg compared to admission of 112.9 kg. CHEST: Breath sounds are diminished throughout but no obvious rhonchi or wheezing. There is just very faint rales heard in the bibasilar lateral aspect posteriorly. HEART: Regular rate and rhythm. Continues to show tachycardic rate on the bedside monitor. ABDOMEN: Significantly distended but soft with edema noted throughout the entire abdomen. Bowel sounds are positive. GENITOURINARY: Scrotum and penis remain edematous with a Stanley catheter in place. EXTREMITIES: Bilateral lower extremities today show about 3+ edema. There is an open wound on his left leg. There are several small open wounds on his left leg that are weeping. LABORATORY: White count is significantly improved, now normalized to 9,800. Hemoglobin is stable at 9.0 and 29.5 with RBC indices indicating a microcytic/ hypochromic presentation and platelet count 230,000. Differential does continue to show a left shift but bandemia is resolved. His PT this morning was low at 19.1 with a subtherapeutic INR of 1.65. Chemistries today show a hyponatremic state with potassium 3.3, otherwise electrolytes were normal. BUN is slightly elevated at 23, creatinine 1.19. He did have an episode of hypoglycemia this morning with glucose of 36, but it has improved since treatment up to 102 and 110. Magnesium is 1.9, phosphorus 2.7. He had a vancomycin trough that was at 20.1. MICROBIOLOGY: He has one aerobic blood culture that was positive with a gram negative bacilli with final report pending. Again, his previous culture results show Enterococcus that was resistant to everything but vancomycin, Macrobid and Ampicillin. Final culture results currently are pending for both blood culture and reculture from current admission. RADIOLOGY: No additional radiographic studies were completed today. ASSESSMENT: 1. Severe sepsis secondary to urinary tract infection, cellulitis and concerns for possible underlying healthcare associated pneumonia with the patient showing good response to parenteral antibiotics to include vancomycin, Meropenem which was deescalated to Unasyn with culture results currently pending. 2. Congestive heart failure exacerbation with anasarca secondary to poor medical compliance showing improvement with Lasix drip and albumin infusions. 3. Diabetes mellitus with a hypoglycemic event requiring further management of his diabetic medications. 4. Hyperkalemia with acute kidney injury showing improvement after IV fluids and a Lasix drip. 5. Atrial fibrillation on chronic warfarin therapy that is subtherapeutic with the patient having a controlled ventricular rate. 6. Hypomagnesemia improved with replacement. 7. Hypoalbuminemia likely secondary to protein calorie malnutrition, improving with replacement. 8. Microcytic/hypochromic anemia secondary to chronic illness. 9. Decreased physical mobility with severe deconditioning. PLAN: Will currently continue with antibiotics that include Rocephin and Unasyn , and await further culture results and sensitivities. I did speak with Dr. Albarran in regards to current treatment for his edema and he is in agreement with continuing with the Lasix drip but saline locking him and continue with albumin infusions for at least another 12 hours to reassess with anticipating of hopefully changing him to scheduled IV Lasix. Will continue to monitor his labs closely. He did have an episode of loose bowels and given the antibiotics that he is on, will currently await further studies as needed for Clostridium Difficile if he continues to have diarrhea. Will continue to encourage every 2 hours rotations to prevent any further skin breakdown and anticipate hopefully being able to get the patient to the bedside chair with Physical Therapy assessment and evaluation. Will anticipate at least another 48 hours admission as he slowly comes off of Lasix drip and if showing clinically improved, hopefully will be able to discharge by Sunday or Sunday back to care facility. Until then, will continue to monitor and treat the patient appropriately. #[id number] [facility]
[2018-03-01] MEDS: diphenhydrAMINE HCL 25 MG CAP PO PRN (23:45)
[2018-03-02] MEDS: TEMAZEPAM 15 MG CAP PO ONE ×2 (00:17→01:01)
[2018-03-02] MEDS: AMPICILLIN & SULBACTAM SODIUM 3 GM in SODIUM CHL 0.9% 100ML MINI-BAG 100 ML IVPB SCH ×4 (01:45→20:04)
[2018-03-02] MEDS ORDERED: ALBUMIN 100 ML IVPB ONE ×4 (05:55→19:57)
[2018-03-02] MEDS: OMEPRAZOLE CAP 20 MG CAP PO SCH (06:09)
[2018-03-02] MEDS: ALBUMIN 25 GM in PREMIX BOTTLE 2 BOTTLE IVPB SCH ×4 (06:11→23:37)
[2018-03-02] MEDS ORDERED: SODIUM CHLORIDE 0.9% 100ML 100 ML IVPB ONE ×2 (06:23→15:53)
[2018-03-02] MEDS ORDERED: FUROSEMIDE INJ 100 MG/10 ML VIAL ONE ×2 (06:23→15:53)
[2018-03-02] MEDS: SODIUM CHLORIDE 0.9% IV SCH ×3 (06:29→16:05)
[2018-03-02] MEDS: FUROSEMIDE IV SCH ×3 (06:29→16:05)
[2018-03-02] MEDS: INSULIN LISPRO 100 UNITS/ML PEN SUBCU SCH ×4 (07:03→21:29)
[2018-03-02] MEDS ORDERED: AMPICILLIN & SULBACTAM SODIUM 3 GM VIAL ONE ×3 (07:43→19:57)
[2018-03-02] MEDS ORDERED: SODIUM CHL 0.9% 100ML MINI-BAG 100 ML IVPB ONE ×3 (07:43→19:57)
--- NOTE | 2018-03-02 07:49 | RAD ---
Procedure: XR CHEST 1 VIEW Exam Date: 03/02/2018 Ordering Provider: Patrick Maharaj NP Clinical Indication: chf Comparison: 02/27/2018 Findings: Residuals of thoracic surgery with prior cardiac valve replacement. Cardiomediastinal silhouette: Cardiomegaly. Pulmonary vasculature : Vascular congestion. Aortic calcification. Focal lung consolidation: Bilateral perihilar and basilar infiltrates are slightly worse compared to prior. Pleural effusion: Small bilateral pleural effusions. Pneumothorax: None Bones and soft tissues: Stable Impression: 1. Bilateral perihilar and basilar infiltrates are slightly worse compared to prior. 2. Small bilateral pleural effusions. Electronically signed by: Abdirahman Grigsby MD 03/02/2018 7:48 AM CDT
[2018-03-02] MEDS: metFORMIN HCL 500 MG TAB PO SCH (07:55)
[2018-03-02] MEDS: METOPROLOL TARTRATE 25 MG TAB PO SCH ×2 (07:55→17:55)
[2018-03-02] MEDS ORDERED: SODIUM CHLORIDE 0.9% 250ML 250 ML ONE (08:38)
[2018-03-02] MEDS ORDERED: VANCOMYCIN HCL INJ 500 MG VIAL ONE (08:38)
[2018-03-02] MEDS: IPRATROPIUM/ALBUTEROL 3 ML VIAL NEB SCH ×4 (08:40→20:25)
[2018-03-02] MEDS: CITALOPRAM HBR 20 MG TAB PO SCH (09:21)
[2018-03-02] MEDS: ACETAMINOPHEN 325 MG TAB PO PRN (09:21)
[2018-03-02] MEDS: ASCORBIC ACID 500 MG TAB PO SCH (09:22)
[2018-03-02] MEDS: BIFIDOBACTERIUM INFANTIS 4 MG CAP PO SCH ×2 (09:22→20:02)
[2018-03-02] MEDS: ASPIRIN TABLET 325 MG TAB PO SCH (09:22)
[2018-03-02] MEDS: MULTIPLE VITAMINS W/ MINERALS 1 EA TAB PO SCH (09:22)
[2018-03-02] MEDS: DUTASTERIDE 0.5 MG CAP PO SCH (09:22)
[2018-03-02] MEDS: DONEPEZIL HCL 5 MG TAB PO SCH (09:22)
[2018-03-02] MEDS: SODIUM CHLORIDE 0.9% (FLUSH) 10 ML SYG IV SCH ×2 (09:22→20:09)
[2018-03-02] MEDS: TAMSULOSIN 0.4 MG CAP PO SCH (09:22)
[2018-03-02] MEDS: guaiFENesin ER TAB 600 MG TAB PO SCH ×2 (09:22→20:01)
[2018-03-02] MEDS: VANCOMYCIN HCL INJ 1,000 MG, VANCOMYCIN HCL INJ 500 MG in SODIUM CHLORIDE 0.9% 250ML 25... IVPB SCH (09:25)
[2018-03-02] MEDS: HYDROcodone 5MG/APAP 325MG 1 EA TAB PO PRN ×3 (11:50→22:17)
[2018-03-02] MEDS ORDERED: WARFARIN SODIUM 5 MG TAB ONE (12:03)
[2018-03-02] MEDS ORDERED: WARFARIN SODIUM 2.5 MG TAB ONE (12:04)
[2018-03-02] MEDS: WARFARIN SODIUM 5 MG, WARFARIN SODIUM 2.5 MG PO SCH ×2 (12:06)
--- NOTE | 2018-03-02 17:49 | PN ---
DATE: 03/02/18 SUPERVISING PHYSICIAN: Matthew Guy M.D. SUBJECTIVE: The patient continues to respond well to the Lasix drip. To this point we have gotten approximately 10 liters off with a deficit of 5 liters total. All of his cultures have been completed and he is showing good clinical improvement. He does have a urinary tract infection with septicemia as well as some cellulitis to that left lower leg along with possible pneumonia. He has been afebrile. He has been up to a chair and notes that he is feeling a little bit better today. He does complain of some pain in his left lower leg. OBJECTIVE: VITAL SIGNS: temperature 97.7, pulse 111, blood pressure 119/83, respirations 22, satting 96% on nasal cannula at 2 liters. I's and O's show a negative balance of 4340 with 2010 in, 6350 out in the last 24 hours while on a Lasix drip. Currently his weight is down to 109.0 which is down from admission of 112.9. CHEST: Lungs are significantly diminished throughout but no wheezing or rhonchi was noted. HEART: Distant heart tones with monitor showing regular rate and rhythm. ABDOMEN: Continues to be swollen with some anasarca noted. Bowel sounds are present. No rebound tenderness on palpation. EXTREMITIES: Left lower leg has weeping areas with a skin tear on the mid portion of the tib/fib anterior with swelling compared to admission now has decreased to about 1+ all the way up to his scrotum which also does look to be less swollen than yesterday. GENITOURINARY: Continues with scrotal edema. No skin breakdown is noted. Stanley remains in place without any complications. NEUROLOGIC: He is alert and oriented times three. LABORATORY: White count shows to be stable now at 8,900 as well as hemoglobin and hematocrit are stable at 9.0 and 29.5, platelet count 225,000. Differential does show a resolving left shift. PT is up slightly to 21.4 but still not therapeutic for INR of 1.86. Chemistries show to be fairly stable with a stable potassium but low at 3.3. BUN 19, creatinine 0.96. Glucose again was low this morning at 38 and has been ranging from a low of 38 to 291. Phosphorus normal at 2.8, magnesium normal at 1.8, calcium 8.3. MICROBIOLOGY: He had 1 blood culture that was positive for Pseudomonas aeruginosa that was sensitive to Levaquin but resistant to Ampicillin. His urine culture final report showed an Enterococcus species Group D which was sensitive to Ampicillin but resistant to Levaquin. Wound on the left cellulitis was not cultured. He continues on vancomycin. RADIOLOGY: Chest x-ray this morning per radiology interpretation for a single view chest shows bilateral perihilar basilar infiltrates slightly worse compared to prior with small bilateral pleural effusions. ASSESSMENT: 1. Bacteremia with sepsis secondary to urinary tract infection and likely a healthcare acquired pneumonia requiring multiple antibiotics to cover for multiple organisms with the blood culture showing Pseudomonas aeruginosa sensitive to Levaquin and resistant to Ampicillin with urine culture showing Enterococcus species Group D sensitive to Ampicillin but resistant to Levaquin. The patient continues to be on Unasyn and vancomycin with the addition of Levaquin last night. 2. Urinary tract infection secondary to Enterococcus on Unasyn with sensitivity showing sensitive to Ampicillin. 3. Bilateral pneumonia likely healthcare acquired with concerns for Pseudomonas origin as he did have a blood culture positive for Pseudomonas aeruginosa that showed to be sensitive to Levaquin but resistant to Ampicillin, but no cultures have been completed as he has not produced any sputum. 4. Congestive heart failure with exacerbation and anasarca secondary to poor medical compliance but improving on Lasix drip and albumin infusions. 5. Cellulitis to the left lower extremity secondary to chronic edema with the patient being on vancomycin. 6. Hyperkalemia on admission with acute kidney injury showing improvement after IV fluids and Lasix drip now showing a mild hypokalemia but showing to be stable. 7. Atrial fibrillation with a fairly well controlled ventricular rate on chronic Warfarin therapy that currently is subtherapeutic. 8. Hypoalbuminemia secondary to chronic illness and poor nutritional status and protein calorie malnutrition showing some improvement with albumin infusions. 9. Microcytic/hypochromic anemia secondary to chronic illness showing to be stable. 10. Significantly decreased physical mobility with severe deconditioning secondary to ongoing chronic illness. PLAN: Now that all cultures are completed at this point, will target antibiotic therapy more closely in regards to the blood culture positive septicemia with Pseudomonas aeruginosa that was sensitive to Levaquin. I now have started him on Levaquin. It was showing resistant to Ampicillin but his urine culture showed Enterococcus Group D that was sensitive to Ampicillin but resistant to Levaquin, and he also remains on vancomycin. I did talk with Dr. Albarran. He recommended we go ahead and leave him on a Lasix drip for an additional 24 hours with albumin 25 grams every 6 hours for 4 doses and reassess in the morning with repeat laboratory studies. I have scheduled him some potassium replacement. He did have a Clostridium Difficile that was negative and has had additional diarrhea which likely is due to his current antibiotic therapy. He has been up to a chair and worked with Physical Therapy , and he is doing okay with this. Will continue with that as well as encourage frequent rotation in bed and into a chair to prevent any further breakdown. The patient again is showing slow clinical response and will need detention therapy for antibiotic coverage for the septicemia and urinary tract infection, and the likely healthcare acquired pneumonia with at least 14 days of Levaquin and continued Unasyn for treatment of the urinary tract infection. He does remain on vancomycin and this is per Pharmacy protocol. Until we can get him off the drip and he shows better clinical improvement and shows to be stable, will continue to monitor and treat appropriately until discharge. #[id number] [facility]
[2018-03-02] MEDS: ALPRAZolam 0.5 MG TAB PO SCH (20:01)
[2018-03-02] MEDS: ATORVASTATIN 20 MG TAB PO SCH (20:01)
[2018-03-02] MEDS: levETIRAcetam 250 MG TAB PO SCH (20:01)
[2018-03-02] MEDS: diphenhydrAMINE HCL 25 MG CAP PO PRN (20:01)
[2018-03-02] MEDS: ACETAMINOPHEN 500 MG TAB PO PRN (20:39)
[2018-03-02] MEDS: TEMAZEPAM 15 MG CAP PO PRN (20:40)
[2018-03-02] MEDS: levoFLOXacin 750MG IV 750 MG in PREMIX BAG 1 BAG IVPB SCH (21:30)
[2018-03-03] MEDS ORDERED: ALBUMIN 100 ML IVPB ONE ×4 (00:44→23:19)
[2018-03-03] MEDS ORDERED: AMPICILLIN & SULBACTAM SODIUM 3 GM VIAL ONE ×5 (00:45→20:00)
[2018-03-03] MEDS ORDERED: SODIUM CHL 0.9% 100ML MINI-BAG 100 ML IVPB ONE ×5 (00:45→20:00)
[2018-03-03] MEDS: AMPICILLIN & SULBACTAM SODIUM 3 GM in SODIUM CHL 0.9% 100ML MINI-BAG 100 ML IVPB SCH ×4 (01:31→20:05)
[2018-03-03] MEDS ORDERED: FUROSEMIDE INJ 100 MG/10 ML VIAL ONE ×2 (02:37→12:25)
[2018-03-03] MEDS ORDERED: SODIUM CHLORIDE 0.9% 100ML 100 ML IVPB ONE ×2 (02:37→12:25)
[2018-03-03] MEDS: SODIUM CHLORIDE 0.9% IV SCH ×2 (02:46→12:13)
[2018-03-03] MEDS: FUROSEMIDE IV SCH ×2 (02:46→12:13)
[2018-03-03] MEDS: ACETAMINOPHEN 325 MG TAB PO PRN (04:51)
[2018-03-03] MEDS: ALBUMIN 25 GM in PREMIX BOTTLE 2 BOTTLE IVPB SCH ×4 (05:40→23:33)
[2018-03-03] MEDS: OMEPRAZOLE CAP 20 MG CAP PO SCH (06:05)
[2018-03-03] MEDS: INSULIN LISPRO 100 UNITS/ML PEN SUBCU SCH ×4 (07:49→20:59)
[2018-03-03] MEDS: METOPROLOL TARTRATE 25 MG TAB PO SCH ×2 (07:53→17:22)
[2018-03-03] MEDS: metFORMIN HCL 500 MG TAB PO SCH (07:53)
[2018-03-03] MEDS: IPRATROPIUM/ALBUTEROL 3 ML VIAL NEB SCH ×4 (08:06→19:50)
[2018-03-03] MEDS ORDERED: VANCOMYCIN HCL INJ 500 MG VIAL ONE (08:26)
[2018-03-03] MEDS ORDERED: SODIUM CHLORIDE 0.9% 250ML 250 ML ONE (08:27)
[2018-03-03] MEDS ORDERED: WARFARIN SODIUM 5 MG TAB ONE (08:27)
[2018-03-03] MEDS ORDERED: VANCOMYCIN HCL INJ 1,000 MG VIAL IVPB ONE (08:28)
[2018-03-03] MEDS ORDERED: WARFARIN SODIUM 2.5 MG TAB ONE (08:28)
[2018-03-03] MEDS ORDERED: POTASSIUM CHLORIDE 20 MEQ TAB PO ONE (09:00)
[2018-03-03] MEDS: CITALOPRAM HBR 20 MG TAB PO SCH (09:09)
[2018-03-03] MEDS: ASPIRIN TABLET 325 MG TAB PO SCH (09:09)
[2018-03-03] MEDS: MULTIPLE VITAMINS W/ MINERALS 1 EA TAB PO SCH (09:10)
[2018-03-03] MEDS: TAMSULOSIN 0.4 MG CAP PO SCH (09:10)
[2018-03-03] MEDS: ASCORBIC ACID 500 MG TAB PO SCH (09:10)
[2018-03-03] MEDS: DUTASTERIDE 0.5 MG CAP PO SCH (09:10)
[2018-03-03] MEDS: DONEPEZIL HCL 5 MG TAB PO SCH (09:10)
[2018-03-03] MEDS: guaiFENesin ER TAB 600 MG TAB PO SCH ×2 (09:10→20:30)
[2018-03-03] MEDS: BIFIDOBACTERIUM INFANTIS 4 MG CAP PO SCH ×2 (09:10→20:30)
[2018-03-03] MEDS: SODIUM CHLORIDE 0.9% (FLUSH) 10 ML SYG IV SCH ×2 (09:20→20:29)
[2018-03-03] MEDS: VANCOMYCIN HCL INJ 1,000 MG, VANCOMYCIN HCL INJ 500 MG in SODIUM CHLORIDE 0.9% 250ML 25... IVPB SCH (09:39)
[2018-03-03] MEDS: VANCOMYCIN HCL INJ 1,000 MG in SODIUM CHLORIDE 0.9% 250ML 250 ML IVPB SCH (10:10)
[2018-03-03] MEDS: HYDROcodone 5MG/APAP 325MG 1 EA TAB PO PRN ×2 (10:13→14:12)
[2018-03-03] MEDS ORDERED: WARFARIN SODIUM 5 MG, WARFARIN SODIUM 2.5 MG PO ONE ×2 (12:00)
[2018-03-03] MEDS ORDERED: SODIUM CHLORIDE 0.9% IV SCH ×2 (12:30→19:28)
[2018-03-03] MEDS ORDERED: FUROSEMIDE IV SCH ×2 (12:30→19:28)
[2018-03-03] MEDS: WARFARIN SODIUM 5 MG, WARFARIN SODIUM 2.5 MG PO SCH ×2 (12:50)
--- NOTE | 2018-03-03 13:27 | PN ---
SUPERVISING PHYSICIAN: Matthew Guy MD DATE: 03/03/18 SUBJECTIVE: The patient is sitting up in his hospital bed. He is eating his lunch and continues to have a wet cough but has no shortness of breath or chest pain. He still feels some tightness in his legs and stomach but is much improved since the last few days. OBJECTIVE: VITAL SIGNS: He is afebrile. Heart rate 114, blood pressure 131/75, respiratory rate is 24, 02 saturation 96% on one liter of nasal cannula. I&O: He has diuresed approximately 15 liters since admission with a negative of I&O of two liters. He has lost approximately 13 pounds. RESPIRATORY: Scattered crackles throughout, somewhat diminished at the bases. CARDIAC: Slightly tachycardiac rate, regular rhythm. GI: Abdomen is slightly firm, it is slightly distended with pitting edema up to the umbilicus. It is non-tender. Bowel sounds are positive. EXTREMITIES: Left lower leg has some weeping and a skin tear lower part of his leg. He also has swelling that continues over the entire legs bilaterally. It is much improved since yesterday. He also has scrotal edema. NEURO: He is awake, alert, and oriented x3. LABORATORY: PT is 24.6 with INR at 2.14. Sodium 139, potassium 3.3, chloride 99. BUN 17, creatinine 0.92. Serum osmolality 281.8, calcium of 8.6. We will continue to await culture and sensitivities. All other labs and films have been reviewed via the EMR. ASSESSMENT: 1. Bacteremia with sepsis secondary to urinary tract infection, most likely a healthcare acquired pneumonia requiring multiple antibiotics to cover for multiple organisms. Blood culture shows Pseudomonas aeruginosa sensitive to Levaquin and resistant to Ampicillin with urine culture showing Enterococcus species, Group D sensitive to Ampicillin but resistant to Levaquin. The patient continues to be on Unasyn and vancomycin with the addition of Levaquin. 2. Urinary tract infection secondary to Enterococcus on Unasyn with sensitivity showing sensitive to Ampicillin. 3. Bilateral pneumonia likely healthcare acquired with concerns for Pseudomonas origin as he did have a blood culture positive for Pseudomonas aeruginosa that showed to be sensitive to Levaquin but resistant to Ampicillin, but no cultures have been completed as he has not produced any sputum. 4. Congestive heart failure with exacerbation and anasarca secondary to poor medical compliance but improving on Lasix drip and albumin infusions. 5. Cellulitis to the left lower extremity secondary to chronic edema with the patient being on vancomycin. 6. Hyperkalemia on admission with acute kidney injury that shows improvement. He continues on his Lasix drip as well as scheduled albumin now showing a mild hypokalemia. 7. Atrial fibrillation with a fairly well controlled ventricular rate on chronic Warfarin therapy, it is therapeutic today. 8. Hypoalbuminemia secondary to chronic illness and poor nutritional status and protein calorie malnutrition showing some improvement with albumin infusions. 9. Microcytic/hypochromic anemia secondary to chronic illness showing to be stable. 10. Significantly decreased physical mobility with severe deconditioning secondary to ongoing chronic illness. PLAN: We will continue present supportive care. I spoke with Dr. Albarran, safety belt installer, today and he agrees that we should continue with the Lasix drip and the albumin infusions through tomorrow. We would like to see some of that abdominal edema to improve. We will continue on 7.5 mg of Coumadin as well as I have given him some additional potassium supplementation. I will repeat his labs and chest x-ray in the morning. We will continue to monitor him closely and follow as needed. Dr. Guy is the collaborating physician available for consultation. #[id number] [facility]
[2018-03-03] MEDS: HYDROcodone 10MG/APAP 325MG 1 EA TAB PO PRN ×2 (15:45→22:01)
[2018-03-03] MEDS ORDERED: FUROSEMIDE INJ 40 MG/4 ML VIAL IV SCH (17:00)
[2018-03-03] MEDS: levETIRAcetam 250 MG TAB PO SCH (20:29)
[2018-03-03] MEDS: diphenhydrAMINE HCL 25 MG CAP PO PRN (20:29)
[2018-03-03] MEDS: ATORVASTATIN 20 MG TAB PO SCH (20:30)
[2018-03-03] MEDS: ALPRAZolam 0.5 MG TAB PO SCH (20:30)
[2018-03-03] MEDS: TEMAZEPAM 15 MG CAP PO PRN (22:01)
[2018-03-03] MEDS: levoFLOXacin 750MG IV 750 MG in PREMIX BAG 1 BAG IVPB SCH (22:01)
[2018-03-04] MEDS: AMPICILLIN & SULBACTAM SODIUM 3 GM in SODIUM CHL 0.9% 100ML MINI-BAG 100 ML IVPB SCH ×4 (01:56→20:08)
[2018-03-04] MEDS ORDERED: SODIUM CHLORIDE 0.9% 100ML 100 ML IVPB ONE (02:01)
[2018-03-04] MEDS ORDERED: FUROSEMIDE INJ 100 MG/10 ML VIAL ONE (02:01)
[2018-03-04] MEDS ORDERED: ALBUMIN 100 ML IVPB ONE ×3 (05:54→22:47)
[2018-03-04] MEDS: OMEPRAZOLE CAP 20 MG CAP PO SCH (06:00)
[2018-03-04] MEDS: HYDROcodone 10MG/APAP 325MG 1 EA TAB PO PRN ×4 (06:00→23:46)
[2018-03-04] MEDS: ALBUMIN 25 GM in PREMIX BOTTLE 2 BOTTLE IVPB SCH ×3 (06:19→23:24)
[2018-03-04] MEDS: INSULIN LISPRO 100 UNITS/ML PEN SUBCU SCH ×4 (07:00→21:12)
[2018-03-04] MEDS ORDERED: SODIUM CHLORIDE 0.9% 250ML 250 ML ONE (07:59)
[2018-03-04] MEDS ORDERED: SODIUM CHL 0.9% 100ML MINI-BAG 100 ML IVPB ONE ×4 (08:00→23:26)
[2018-03-04] MEDS ORDERED: VANCOMYCIN HCL INJ 1,000 MG VIAL IVPB ONE (08:00)
[2018-03-04] MEDS ORDERED: AMPICILLIN & SULBACTAM SODIUM 3 GM VIAL ONE ×4 (08:00→23:26)
[2018-03-04] MEDS: IPRATROPIUM/ALBUTEROL 3 ML VIAL NEB SCH ×4 (08:08→20:49)
--- NOTE | 2018-03-04 08:13 | RAD ---
EXAM DESCRIPTION: Chest,1 View CLINICAL HISTORY: chf COMPARISON: 03/02/2018 FINDINGS: Cardiac silhouette is enlarged. There are consolidations in both lungs but aeration has improved since the prior exam. Bilateral moderate pleural effusions are present.. IMPRESSION: Mild improvement in CHF. Bilateral consolidations and effusions persist. Electronically signed by: Arun Nava 03/04/2018 8:11 AM CDT
[2018-03-04] MEDS: metFORMIN HCL 500 MG TAB PO SCH (08:29)
[2018-03-04] MEDS: METOPROLOL TARTRATE 25 MG TAB PO SCH ×2 (08:29→17:20)
[2018-03-04] MEDS: MULTIPLE VITAMINS W/ MINERALS 1 EA TAB PO SCH (08:29)
[2018-03-04] MEDS: DONEPEZIL HCL 5 MG TAB PO SCH (08:30)
[2018-03-04] MEDS: BIFIDOBACTERIUM INFANTIS 4 MG CAP PO SCH ×2 (08:30→21:10)
[2018-03-04] MEDS: DUTASTERIDE 0.5 MG CAP PO SCH (08:30)
[2018-03-04] MEDS: CITALOPRAM HBR 20 MG TAB PO SCH (08:30)
[2018-03-04] MEDS: ASPIRIN TABLET 325 MG TAB PO SCH (08:30)
[2018-03-04] MEDS: ASCORBIC ACID 500 MG TAB PO SCH (08:30)
[2018-03-04] MEDS: guaiFENesin ER TAB 600 MG TAB PO SCH ×2 (08:30→21:11)
[2018-03-04] MEDS: TAMSULOSIN 0.4 MG CAP PO SCH (08:30)
[2018-03-04] MEDS: SODIUM CHLORIDE 0.9% (FLUSH) 10 ML SYG IV SCH ×2 (08:31→21:11)
[2018-03-04] MEDS: GABAPENTIN 100 MG CAP PO SCH ×3 (10:15→21:09)
[2018-03-04] MEDS: VANCOMYCIN HCL INJ 1,000 MG in SODIUM CHLORIDE 0.9% 250ML 250 ML IVPB SCH (10:16)
[2018-03-04] MEDS ORDERED: WARFARIN SODIUM 2.5 MG TAB ONE (11:45)
[2018-03-04] MEDS ORDERED: WARFARIN SODIUM 5 MG TAB ONE (11:45)
[2018-03-04] MEDS: WARFARIN SODIUM 5 MG, WARFARIN SODIUM 2.5 MG PO SCH ×2 (12:06)
[2018-03-04] MEDS: FUROSEMIDE INJ 100 MG/10 ML VIAL IV SCH ×2 (14:50→21:36)
--- NOTE | 2018-03-04 16:54 | PN ---
DATE: 03/04/18 SUPERVISING PHYSICIAN: Felice Allen M.D. SUBJECTIVE: The patient is lying in bed. His is at the bedside. Complains of some slight shortness of breath especially with exertion, but it is continuing to improve. He does say his left leg hurts but the pain medication that we are giving him is helping. Otherwise denies nausea, vomiting , constipation or chest pain. OBJECTIVE: VITAL SIGNS: Heart rate 99, blood pressure 135/76, respiratory rate 24, O2 sat is 92% on 2 liters nasal cannula. The patient has lost approximately 15 pounds since admission. He has diuresed approximately 19 liters and he has a hemoglobin I and O of 8 liters. RESPIRATORY: Scattered crackles throughout. It is diminished at the bases. CARDIAC: Regular rate, irregular rhythm. GASTROINTESTINAL: Anasarca noticed up to the umbilicus. Continues to have pitting edema on the abdomen. It is firm but non-tender. Bowel sounds are positive. EXTREMITIES: Edema to the lower extremities continues to improve, although he still has pitting edema along his entire bilateral legs. It is slightly worsened on the left. He does have weeping wounds to that lower left leg with scab-like sores on the lower leg. NEUROLOGIC : He is slightly lethargic but oriented times three. LABORATORY: WBCs are 9.4, hemoglobin 9, hematocrit 29.2, neutrophils have normalized to 75.2. INR is now therapeutic at 2.3. Sodium 140, potassium 3.6, chloride 100, carbon dioxide 29, anion gap 14.6, BUN 24, creatinine 1. Serum osmolality 284.1 with calcium 8.8 and magnesium 1.9. Bilirubin is slightly elevated at 1.3. Liver enzymes are basically within normal limits. Chest x-ray shows mild improvement in congestive heart failure with bilateral consolidations and effusions persisting. All other labs and films have been reviewed via the EMR. ASSESSMENT: 1. Bacteremia with sepsis secondary to urinary tract infection, most likely a healthcare acquired pneumonia requiring multiple antibiotics to cover for multiple organisms. Blood culture shows Pseudomonas aeruginosa sensitive to Levaquin and resistant to Ampicillin with urine culture showing Enterococcus species, Group D sensitive to Ampicillin but resistant to Levaquin. The patient continues to be on Unasyn and vancomycin with the addition of Levaquin. 2. Urinary tract infection secondary to Enterococcus on Unasyn with sensitivity showing sensitive to Ampicillin. 3. Bilateral pneumonia likely healthcare acquired with concerns for Pseudomonas origin as he did have a blood culture positive for Pseudomonas aeruginosa that showed to be sensitive to Levaquin but resistant to Ampicillin, but no cultures have been completed as he has not produced any sputum. 4. Congestive heart failure with exacerbation and anasarca secondary to poor medical compliance but improving on Lasix drip and albumin infusions. 5. Cellulitis to the left lower extremity secondary to chronic edema with the patient being on vancomycin. 6. Hyperkalemia on admission with acute kidney injury that shows improvement. He continues on his Lasix drip as well as scheduled albumin now showing a mild hypokalemia. 7. Atrial fibrillation with a fairly well controlled ventricular rate on chronic Warfarin therapy, it is therapeutic today. 8. Hypoalbuminemia secondary to chronic illness and poor nutritional status and protein calorie malnutrition showing some improvement with albumin infusions. 9. Microcytic/hypochromic anemia secondary to chronic illness showing to be stable. 10. Significantly decreased physical mobility with severe deconditioning secondary to ongoing chronic illness. PLAN: We will continue present supportive care. I will discontinue the Lasix drip for now and change him to 80 mg every 8 hours. I have also decreased his albumin to 25 grams every 12 hours. I will repeat his labs in the morning. I will continue his Coumadin at 7.5 as his INR is therapeutic and we will monitor that closely. I have also consulted Dr. Gonzalez as he has never seen him but does have a consulting appointment in March. I will also make him NPO at midnight in case we need to do any further studies or testing on his abdomen. Otherwise we will continue to monitor him closely and follow as needed. Dr. Allen is the collaborating physician available for consultation. #[id number] [facility]
[2018-03-04] MEDS: IV SET AND CAP CHANGE INJ INJ SCH (17:20)
[2018-03-04] MEDS: ATORVASTATIN 20 MG TAB PO SCH (21:10)
[2018-03-04] MEDS: levETIRAcetam 250 MG TAB PO SCH (21:10)
[2018-03-04] MEDS: ALPRAZolam 0.5 MG TAB PO SCH (21:10)
[2018-03-04] MEDS: levoFLOXacin 750MG IV 750 MG in PREMIX BAG 1 BAG IVPB SCH (21:36)
[2018-03-05] MEDS: AMPICILLIN & SULBACTAM SODIUM 3 GM in SODIUM CHL 0.9% 100ML MINI-BAG 100 ML IVPB SCH ×4 (01:31→20:23)
[2018-03-05] MEDS: FUROSEMIDE INJ 100 MG/10 ML VIAL IV SCH ×3 (06:01→22:05)
[2018-03-05] MEDS: OMEPRAZOLE CAP 20 MG CAP PO SCH (06:38)
[2018-03-05] MEDS: INSULIN LISPRO 100 UNITS/ML PEN SUBCU SCH ×4 (07:41→21:20)
[2018-03-05] MEDS ORDERED: AMPICILLIN & SULBACTAM SODIUM 3 GM VIAL ONE ×3 (08:22→20:07)
[2018-03-05] MEDS ORDERED: SODIUM CHL 0.9% 100ML MINI-BAG 100 ML IVPB ONE ×3 (08:22→20:06)
[2018-03-05] MEDS: IPRATROPIUM/ALBUTEROL 3 ML VIAL NEB SCH ×4 (08:25→20:54)
[2018-03-05] MEDS: ASPIRIN TABLET 325 MG TAB PO SCH (09:02)
[2018-03-05] MEDS: GABAPENTIN 100 MG CAP PO SCH ×3 (09:02→20:32)
[2018-03-05] MEDS: BIFIDOBACTERIUM INFANTIS 4 MG CAP PO SCH ×2 (09:02→20:30)
[2018-03-05] MEDS: METOPROLOL TARTRATE 25 MG TAB PO SCH ×2 (09:02→17:16)
[2018-03-05] MEDS: guaiFENesin ER TAB 600 MG TAB PO SCH ×2 (09:02→20:31)
[2018-03-05] MEDS: metFORMIN HCL 500 MG TAB PO SCH (09:02)
[2018-03-05] MEDS: TAMSULOSIN 0.4 MG CAP PO SCH (09:02)
[2018-03-05] MEDS: MULTIPLE VITAMINS W/ MINERALS 1 EA TAB PO SCH (09:02)
[2018-03-05] MEDS: DUTASTERIDE 0.5 MG CAP PO SCH (09:02)
[2018-03-05] MEDS: DONEPEZIL HCL 5 MG TAB PO SCH (09:02)
[2018-03-05] MEDS: ASCORBIC ACID 500 MG TAB PO SCH (09:02)
[2018-03-05] MEDS: CITALOPRAM HBR 20 MG TAB PO SCH (09:03)
[2018-03-05] MEDS: SODIUM CHLORIDE 0.9% (FLUSH) 10 ML SYG IV SCH ×2 (09:03→20:24)
[2018-03-05] MEDS: HYDROcodone 10MG/APAP 325MG 1 EA TAB PO PRN ×3 (09:04→21:22)
[2018-03-05] MEDS ORDERED: SODIUM CHLORIDE 0.9% 250ML 250 ML ONE (09:35)
[2018-03-05] MEDS ORDERED: VANCOMYCIN HCL INJ 1,000 MG VIAL IVPB ONE (09:36)
[2018-03-05] MEDS: VANCOMYCIN HCL INJ 1,000 MG in SODIUM CHLORIDE 0.9% 250ML 250 ML IVPB SCH (09:38)
[2018-03-05] MEDS ORDERED: ALBUMIN 100 ML IVPB ONE ×2 (12:25→23:57)
[2018-03-05] MEDS ORDERED: WARFARIN SODIUM 2.5 MG TAB ONE (12:26)
[2018-03-05] MEDS ORDERED: WARFARIN SODIUM 5 MG TAB ONE (12:26)
[2018-03-05] MEDS: WARFARIN SODIUM 5 MG, WARFARIN SODIUM 2.5 MG PO SCH ×2 (12:37)
[2018-03-05] MEDS: ALBUMIN 25 GM in PREMIX BOTTLE 2 BOTTLE IVPB SCH (12:37)
[2018-03-05] MEDS ORDERED: POTASSIUM CHLORIDE 20 MEQ TAB PO ONE (18:39)
[2018-03-05] MEDS: levETIRAcetam 250 MG TAB PO SCH (20:30)
[2018-03-05] MEDS: ALPRAZolam 0.5 MG TAB PO SCH (20:32)
[2018-03-05] MEDS: ATORVASTATIN 20 MG TAB PO SCH (20:32)
[2018-03-05] MEDS: TEMAZEPAM 15 MG CAP PO PRN (21:20)
[2018-03-05] MEDS: levoFLOXacin 750MG IV 750 MG in PREMIX BAG 1 BAG IVPB SCH (22:06)
[2018-03-06] MEDS: ALBUMIN 25 GM in PREMIX BOTTLE 2 BOTTLE IVPB SCH (00:09)
[2018-03-06] MEDS: diphenhydrAMINE HCL 25 MG CAP PO PRN ×2 (00:10→20:57)
[2018-03-06] MEDS ORDERED: SODIUM CHL 0.9% 100ML MINI-BAG 100 ML IVPB ONE ×2 (02:09→06:59)
[2018-03-06] MEDS ORDERED: AMPICILLIN & SULBACTAM SODIUM 3 GM VIAL ONE ×2 (02:09→06:59)
[2018-03-06] MEDS: AMPICILLIN & SULBACTAM SODIUM 3 GM in SODIUM CHL 0.9% 100ML MINI-BAG 100 ML IVPB SCH ×2 (02:13→07:24)
[2018-03-06] MEDS: FUROSEMIDE INJ 100 MG/10 ML VIAL IV SCH (06:16)
[2018-03-06] MEDS: OMEPRAZOLE CAP 20 MG CAP PO SCH (06:17)
[2018-03-06] MEDS: HYDROcodone 10MG/APAP 325MG 1 EA TAB PO PRN (06:17)
[2018-03-06] MEDS: INSULIN LISPRO 100 UNITS/ML PEN SUBCU SCH ×4 (07:10→21:12)
[2018-03-06] MEDS: metFORMIN HCL 500 MG TAB PO SCH (07:19)
[2018-03-06] MEDS: METOPROLOL TARTRATE 25 MG TAB PO SCH ×2 (07:19→16:41)
--- NOTE | 2018-03-06 07:50 | RAD ---
EXAM DESCRIPTION: Chest,1 View CLINICAL HISTORY: pna chest pain shortness of breath COMPARISON: March 04, 2018 IMPRESSION: Single AP portable upright view of the chest shows enlargement of the cardiomediastinal silhouette with prominence of pulmonary vasculature suggesting mild congestive heart failure. Sternotomy wires are seen with evidence of cardiac valve replacement. Lungs are poorly aerated. Increasing opacification in the right mid to lower chest is seen consistent with increasing right pleural effusion. There are likely areas of atelectasis or pneumonia in the right lower lobe with new infiltrates in the right upper lobe seen. Stable probable pleural effusion with associated atelectasis or infiltrate in the left lower lobe. Electronically signed by: Gilmar Naranjo MD 03/06/2018 7:49 AM CDT
--- NOTE | 2018-03-06 08:07 | PN ---
DATE: 03/05/18 SUPERVISING PHYSICIAN: Felice Allen M.D. SUBJECTIVE: The patient is sitting up in his chair in his hospital room. He has no complaints of shortness of breath, nausea, vomiting, diarrhea. He continues complaints of the left lower leg hurting. OBJECTIVE: VITAL SIGNS: He is afebrile. Heart rate runs between 90 to 115. Blood pressure 139/76, respiratory rate is 23. 02 saturation 93% on 2 liters nasal cannula. RESPIRATORY: Diminished breath sounds throughout. CARDIAC: Regular to tachycardic rate. Irregular rhythm. GASTROINTESTINAL: The abdominal edema has improved, the line of demarcation for the pitting edema that is about 3 to 4 inches below the umbilicus. Abdomen is still firm but the pitting edema has receded greatly since yesterday. Bowel sounds are positive. EXTREMITIES: His weeping wounds to the left lower leg is slightly more edematous than the other one but again, the edema to the lower legs has improved greatly. It is still +3 bilaterally. NEUROLOGIC: He is awake and alert.. LABORATORY: WBCs are 11.1, hemoglobin 8.8, hematocrit 29.5. Neutrophils are 80.7. INR is 2.57. Sodium 138, potassium 3.5, chloride 101. Carbon dioxide 25 , BUN 31, creatinine 1.1. Glucose 125. Serum osmolality 283.7. Calcium 8.7, magnesium 2, bilirubin 1.3. Serum total protein 6.9, albumin 4.3. Globulin 2.6. All other labs and films have been reviewed via the EMR. ASSESSMENT: 1. Bacteremia with sepsis secondary to urinary tract infection, most likely a healthcare acquired pneumonia requiring multiple antibiotics to cover for multiple organisms. Blood culture shows Pseudomonas aeruginosa sensitive to Levaquin and resistant to Ampicillin with urine culture showing Enterococcus species, Group D sensitive to Ampicillin but resistant to Levaquin. The patient continues to be on Unasyn and vancomycin with the addition of Levaquin. 2. Urinary tract infection secondary to Enterococcus on Unasyn with sensitivity showing sensitive to Ampicillin. 3. Bilateral pneumonia likely healthcare acquired with concerns for Pseudomonas origin as he did have a blood culture positive for Pseudomonas aeruginosa that showed to be sensitive to Levaquin but resistant to Ampicillin, but no cultures have been completed as he has not produced any sputum. 4. Congestive heart failure with exacerbation and anasarca secondary to poor medical compliance. He has been changed from a Lasix drip to scheduled IV Lasix and albumin infusions. 5. Cellulitis to the left lower extremity secondary to chronic edema with the patient being on vancomycin. 6. Hyperkalemia on admission but is now improved with Lasix infusion. 7. Atrial fibrillation with a fairly well controlled ventricular rate on chronic Warfarin therapy, it is therapeutic today. 8. Hypoalbuminemia secondary to chronic illness and poor nutritional status and protein calorie malnutrition showing some improvement with albumin infusions. 9. Microcytic/hypochromic anemia secondary to chronic illness that shows a a slowly decreasing hemoglobin that is 8.8 today. 10. Significantly decreased physical mobility with severe deconditioning secondary to ongoing chronic illness. PLAN: We will continue present supportive care. Will continue with his Coumadin at 7.5. His potassium was slightly low this morning, will give him some oral supplementation. I will recheck his labs to monitor his electrolytes closely as well as a chest x-ray tomorrow. I will touch base with Dr. Albarran to decide the plan on his Lasix and albumin. He has continued to have good output , although I believe he could use several more liters of diuresis. We will also need to plan on what his discharge Lasix dosing will be. Dr. Gonzalez was consulted today but he was not in clinic so we will have Dr. Gonzalez see him on Sunday. We will continue to monitor him closely and follow as needed. Dr. Allen is the collaborating physician available for consultation #[id number] [facility]
[2018-03-06] MEDS: IPRATROPIUM/ALBUTEROL 3 ML VIAL NEB SCH ×4 (08:30→20:33)
[2018-03-06] MEDS: ASPIRIN TABLET 325 MG TAB PO SCH (09:16)
[2018-03-06] MEDS: BIFIDOBACTERIUM INFANTIS 4 MG CAP PO SCH ×2 (09:16→20:55)
[2018-03-06] MEDS: DUTASTERIDE 0.5 MG CAP PO SCH (09:17)
[2018-03-06] MEDS: DONEPEZIL HCL 5 MG TAB PO SCH (09:17)
[2018-03-06] MEDS: GABAPENTIN 100 MG CAP PO SCH ×3 (09:17→20:55)
[2018-03-06] MEDS: guaiFENesin ER TAB 600 MG TAB PO SCH ×2 (09:17→20:55)
[2018-03-06] MEDS: MULTIPLE VITAMINS W/ MINERALS 1 EA TAB PO SCH (09:17)
[2018-03-06] MEDS: SODIUM CHLORIDE 0.9% (FLUSH) 10 ML SYG IV SCH ×2 (09:17→20:56)
[2018-03-06] MEDS: ASCORBIC ACID 500 MG TAB PO SCH (09:17)
[2018-03-06] MEDS: CITALOPRAM HBR 20 MG TAB PO SCH (09:17)
[2018-03-06] MEDS: TAMSULOSIN 0.4 MG CAP PO SCH (09:17)
[2018-03-06] MEDS ORDERED: VANCOMYCIN HCL INJ 1,000 MG VIAL IVPB ONE (09:26)
[2018-03-06] MEDS ORDERED: SODIUM CHLORIDE 0.9% 250ML 250 ML ONE (09:26)
[2018-03-06] MEDS: VANCOMYCIN HCL INJ 1,000 MG in SODIUM CHLORIDE 0.9% 250ML 250 ML IVPB SCH (09:39)
[2018-03-06] MEDS ORDERED: FUROSEMIDE IV SCH (11:30)
[2018-03-06] MEDS ORDERED: SODIUM CHLORIDE 0.9% IV SCH (11:30)
[2018-03-06] MEDS ORDERED: WARFARIN SODIUM 5 MG TAB ONE (11:41)
[2018-03-06] MEDS ORDERED: WARFARIN SODIUM 2.5 MG TAB ONE (11:41)
[2018-03-06] MEDS ORDERED: SODIUM CHLORIDE 0.9% 100ML 100 ML IVPB ONE ×6 (11:42→23:40)
[2018-03-06] MEDS ORDERED: FUROSEMIDE INJ 100 MG/10 ML VIAL ONE ×3 (11:42→21:00)
[2018-03-06] MEDS: SODIUM CHLORIDE 0.9% IV SCH ×3 (12:23→21:10)
[2018-03-06] MEDS: FUROSEMIDE IV SCH ×3 (12:23→21:10)
[2018-03-06] MEDS: SODIUM CHLORIDE 0.9% (FLUSH) 10 ML SYG IV PRN (12:26)
[2018-03-06] MEDS: WARFARIN SODIUM 5 MG, WARFARIN SODIUM 2.5 MG PO SCH ×2 (12:32)
[2018-03-06] MEDS ORDERED: PIPERACILLIN/TAZOBACTAM 3.375 GM in SODIUM CHLORIDE 0.9% 100ML 100 ML IVPB ONE (13:00)
[2018-03-06] MEDS ORDERED: PIPERACILLIN/TAZOBACTAM 3.375 GM VIAL IVPB ONE ×3 (13:14→23:39)
[2018-03-06] MEDS: PIPERACILLIN/TAZOBACTAM 3.375 GM in SODIUM CHLORIDE 0.9% 100ML 100 ML IVPB SCH (16:37)
[2018-03-06] MEDS: ACETAMINOPHEN 500 MG TAB PO PRN (20:55)
[2018-03-06] MEDS: levETIRAcetam 250 MG TAB PO SCH (20:56)
[2018-03-06] MEDS: ALPRAZolam 0.5 MG TAB PO SCH (20:56)
[2018-03-06] MEDS: ATORVASTATIN 20 MG TAB PO SCH (20:56)
[2018-03-06] MEDS: TEMAZEPAM 15 MG CAP PO PRN (20:57)
[2018-03-07] MEDS: PIPERACILLIN/TAZOBACTAM 3.375 GM in SODIUM CHLORIDE 0.9% 100ML 100 ML IVPB SCH ×3 (00:09→15:35)
[2018-03-07] MEDS: SODIUM CHLORIDE 0.9% (FLUSH) 10 ML SYG IV PRN (00:10)
[2018-03-07] MEDS ORDERED: SODIUM CHLORIDE 0.9% 100ML 100 ML IVPB ONE ×9 (01:20→19:37)
[2018-03-07] MEDS ORDERED: FUROSEMIDE INJ 100 MG/10 ML VIAL ONE ×4 (01:20→18:18)
[2018-03-07] MEDS: FUROSEMIDE IV SCH ×6 (01:32→22:30)
[2018-03-07] MEDS: SODIUM CHLORIDE 0.9% IV SCH ×6 (01:32→22:30)
[2018-03-07] MEDS ORDERED: FUROSEMIDE INJ 100 MG/10 ML VIAL IV ONE ×4 (01:32→22:30)
[2018-03-07] MEDS ORDERED: FUROSEMIDE INJ 40 MG/4 ML VIAL ONE ×3 (05:23→19:35)
[2018-03-07] MEDS: OMEPRAZOLE CAP 20 MG CAP PO SCH (06:14)
[2018-03-07] MEDS: INSULIN LISPRO 100 UNITS/ML PEN SUBCU SCH ×4 (07:24→21:32)
[2018-03-07] MEDS ORDERED: PIPERACILLIN/TAZOBACTAM 3.375 GM VIAL IVPB ONE ×3 (07:30→19:33)
[2018-03-07] MEDS: METOPROLOL TARTRATE 25 MG TAB PO SCH ×2 (08:06→16:48)
[2018-03-07] MEDS: metFORMIN HCL 500 MG TAB PO SCH (08:06)
--- NOTE | 2018-03-07 08:50 | PN ---
SUPERVISING PHYSICIAN: Felice Allen MD DATE: 03/06/18 SUBJECTIVE: The patient is sitting up in his chair in his hospital room. His is at the bedside. At this time, the patient only answers simple yes/no questions. I discussed his case with his extensively and I informed her that we were speaking to Dr. Albarran, telephone clerk telegraph office, and Dr. Lynn, infectious disease doctor in [place] to coordinate care. I told her I had also talked to his primary care physician, Dr. Cardenas, and that we were going to aggressively treat him with Lasix drip overnight as well as some changes in his antibiotics and he may need to be transferred at some point if he does not respond to treatment. OBJECTIVE: VITAL SIGNS: Afebrile. Heart rate 98. Blood pressure 123/83. Respiratory rate 22. O2 saturation 95%. It has dropped as low as 88% earlier this morning. Over the last 24 hours, he has had a positive 795 I&O. RESPIRATORY: Scattered rales throughout and diminished at the bases. CARDIAC: Regular to tachycardic rate and irregular rhythm. GASTROINTESTINAL: Abdominal ascites has improved. There continues to be a line of demarcation pitting edema that has receding another inch below the umbilicus. The abdomen is still firm, but again the edema has receded greatly since even yesterday. Bowel sounds are positive. EXTREMITIES: Continued weeping wounds to the left lower leg. The left leg is slightly more edematous to the right, but the edema continues to improve. It is +3 bilaterally. NEUROLOGIC: Awake and alert. LABORATORY: WBCs 8.6, hemoglobin 8.7, hematocrit 28.8. INR 2.4. Blood sugars have run between 133 and 207. Sodium 144, potassium 3.3, chloride 104, carbon dioxide 30, BUN 35, creatinine 1.26. Serum osmolality 298.7. Calcium 9.2, magnesium 2.1. Chest x-ray shows stable probable pleural effusion with associated atelectasis or infiltrate in the left lower lobe. All other labs and films have been reviewed via the EMR. ASSESSMENT: 1. Bacteremia with sepsis secondary to urinary tract infection with culture showing Enterococcus species as well as pneumonia, most likely healthcare acquired. His blood culture shows Pseudomonas aeruginosa. 2. Urinary tract infection secondary to Enterococcus. 3. Bilateral pneumonia, likely healthcare acquired, with concerns for Pseudomonas in origin as had a blood culture positive for Pseudomonas aeruginosa. 4. Congestive heart failure with exacerbation and anasarca secondary to poor medical compliance. 5. Cellulitis of the left lower leg secondary to chronic edema with the patient being on vancomycin. 6. Hyperkalemia on admission, now improved. 7. Atrial fibrillation on warfarin therapy. 8. Hypoalbuminemia secondary to chronic illness and poor nutritional status, improved with albumin infusions. 9. Microcytic/hypochromic anemia, continues to slightly worsen with a hemoglobin of 8.7 today. 10. Significantly decreased physical mobility with severe deconditioning secondary to ongoing chronic illness. PLAN: We will continue present supportive care. I spoke with Dr. Albarran this morning and he recommended that we resume his Lasix drip and stop the albumin infusions and diurese him over the next 24 hours. He agrees that if he is not improved by tomorrow that he may benefit from a transfer to [facility]. I then spoke with Dr. Lynn, infectious disease physician in [place]. She felt that if we discontinued the Levaquin and the Unasyn and change him to Zosyn, that he may show a good clinical improvement overnight and we are to continue the vancomycin as well. She agreed that if he did not show significant clinical improvement tomorrow, he may benefit from being transferred to [place]. I discussed the patient's code status with his . Dr. Cardenas has also contacted her and at this time he will remain a full code. I will repeat his lab tomorrow. Depending on his clinical response , we will decide if he needs to be transferred or not. If he does improve greatly, we will need to have him see Dr. Gonzalez on Sunday for his recommendations from a cardiac standpoint. Otherwise, we will continue to monitor the patient closely and follow as needed. Dr. Allen is the collaborating physician and available for consultation. #[id number] [facility]
[2018-03-07] MEDS: IPRATROPIUM/ALBUTEROL 3 ML VIAL NEB SCH ×4 (08:55→20:55)
[2018-03-07] MEDS ORDERED: POTASSIUM CHLORIDE 20 MEQ TAB PO ONE ×2 (09:04→18:34)
[2018-03-07] MEDS: DONEPEZIL HCL 5 MG TAB PO SCH (09:43)
[2018-03-07] MEDS: ASCORBIC ACID 500 MG TAB PO SCH (09:43)
[2018-03-07] MEDS: DUTASTERIDE 0.5 MG CAP PO SCH (09:43)
[2018-03-07] MEDS: SODIUM CHLORIDE 0.9% (FLUSH) 10 ML SYG IV SCH ×2 (09:44→20:51)
[2018-03-07] MEDS: MULTIPLE VITAMINS W/ MINERALS 1 EA TAB PO SCH (09:44)
[2018-03-07] MEDS: TAMSULOSIN 0.4 MG CAP PO SCH (09:44)
[2018-03-07] MEDS: ASPIRIN TABLET 325 MG TAB PO SCH (09:44)
[2018-03-07] MEDS: CITALOPRAM HBR 20 MG TAB PO SCH (09:44)
[2018-03-07] MEDS: GABAPENTIN 100 MG CAP PO SCH ×3 (09:45→20:51)
[2018-03-07] MEDS: BIFIDOBACTERIUM INFANTIS 4 MG CAP PO SCH ×2 (09:45→20:50)
[2018-03-07] MEDS: guaiFENesin ER TAB 600 MG TAB PO SCH ×2 (09:45→20:50)
[2018-03-07] MEDS ORDERED: VANCOMYCIN HCL INJ 1,000 MG VIAL IVPB ONE (10:32)
[2018-03-07] MEDS ORDERED: SODIUM CHLORIDE 0.9% 250ML 250 ML ONE (10:32)
[2018-03-07] MEDS: VANCOMYCIN HCL INJ 1,000 MG in SODIUM CHLORIDE 0.9% 250ML 250 ML IVPB SCH (10:37)
[2018-03-07] MEDS ORDERED: WARFARIN SODIUM 5 MG TAB ONE (11:49)
[2018-03-07] MEDS ORDERED: WARFARIN SODIUM 2.5 MG TAB ONE (11:50)
[2018-03-07] MEDS: WARFARIN SODIUM 5 MG, WARFARIN SODIUM 2.5 MG PO SCH ×2 (11:54)
--- NOTE | 2018-03-07 13:13 | PN ---
SUPERVISING PHYSICIAN: Felice Allen MD DATE: 03/07/18 SUBJECTIVE: The patient is sitting up in his chair. He is much more awake and alert today. He actually answers some simple questions appropriate. He says he feels much better. His is at bedside and also said he is feeling better. He actually participated in his physical therapy today. OBJECTIVE: VITAL SIGNS: Afebrile. Heart rate 100. Blood pressure 134/78. Respiratory rate 16. O2 saturation 94% on 2 liters. Intake over the last 24 hours is 1560, his out is 4825 with a negative total I&O f 3265. RESPIRATORY: A few scattered rhonchi throughout with a few scattered crackles, much improved since yesterday. GASTROINTESTINAL: Abdominal ascites is much improved. In fact, there is no pitting edema to the abdomen. Scrotal edema has also improved. EXTREMITIES: His left lower leg has the wounds with some weeping areas on it. Again, the cellulitis is improved. Edema is +2 bilaterally. NEUROLOGIC: Awake and alert. LABORATORY: Hemoglobin is slightly improved to 8.9 with hematocrit 28.7. WBCs 9.3. Blood sugars have run between 133 and 192. Sodium 141, potassium 2.9, chloride 100, carbon dioxide 32, BUN 29, creatinine 0.97. Magnesium 2, bilirubin 1.4, alkaline phosphatase 39. All other labs and films have been reviewed via the EMR. ASSESSMENT: 1. Bacteremia with sepsis secondary to urinary tract infection with culture showing Enterococcus species as well as pneumonia, most likely healthcare acquired. His blood culture shows Pseudomonas aeruginosa. 2. Urinary tract infection secondary to Enterococcus. 3. Bilateral pneumonia, likely healthcare acquired, with concerns for Pseudomonas in origin and has had a blood culture positive for Pseudomonas aeruginosa. 4. Congestive heart failure with exacerbation and anasarca secondary to poor medical compliance. 5. Cellulitis of the left lower leg secondary to chronic edema with the patient being on vancomycin. 6. Hyperkalemia on admission. He is hypokalemic today. We will give supplemental potassium. 7. Atrial fibrillation on warfarin therapy. 8. Hypoalbuminemia. 9. Microcytic/hypochromic anemia. His hemoglobin is 8.8 today. 10. Significantly decreased physical mobility with severe deconditioning secondary to ongoing illness. PLAN: We will continue present supportive care. I have given him 40 mEq of potassium p.o. as well as 40 IV today. We will check his potassium at 3 PM. She will have lab and chest x-ray in the morning as well as PT/INR. I spoke with Dr. Albarran at length today. He said to continue the Lasix drip for another 24 hours, especially given that he has improved so much. We can call Dr. Albarran with further orders, but he said he may need to be on this for several more days prior to discontinuing it. W will continue to monitor the patient closely and follow as needed. Dr. Allen is the collaborating physician and available for consultation. #[id number] [facility]
[2018-03-07] MEDS: IV SET AND CAP CHANGE INJ INJ SCH (16:49)
[2018-03-07] MEDS: ACETAMINOPHEN 325 MG TAB PO PRN (18:31)
[2018-03-07] MEDS: levETIRAcetam 250 MG TAB PO SCH (20:50)
[2018-03-07] MEDS: ATORVASTATIN 20 MG TAB PO SCH (20:50)
[2018-03-07] MEDS: ALPRAZolam 0.5 MG TAB PO SCH (20:51)
[2018-03-07] MEDS: TEMAZEPAM 15 MG CAP PO PRN (20:51)
[2018-03-07] MEDS: ACETAMINOPHEN 500 MG TAB PO PRN (20:55)
[2018-03-07] MEDS: diphenhydrAMINE HCL 25 MG CAP PO PRN (20:57)
[2018-03-08] MEDS: PIPERACILLIN/TAZOBACTAM 3.375 GM in SODIUM CHLORIDE 0.9% 100ML 100 ML IVPB SCH ×3 (00:10→16:04)
[2018-03-08] MEDS ORDERED: SODIUM CHLORIDE 0.9% 100ML 100 ML IVPB ONE ×9 (01:33→23:21)
[2018-03-08] MEDS ORDERED: FUROSEMIDE INJ 40 MG/4 ML VIAL ONE ×2 (01:33→05:08)
[2018-03-08] MEDS: FUROSEMIDE IV SCH ×6 (02:40→23:52)
[2018-03-08] MEDS ORDERED: FUROSEMIDE INJ 100 MG/10 ML VIAL IV ONE ×2 (02:40→06:52)
[2018-03-08] MEDS: SODIUM CHLORIDE 0.9% IV SCH ×6 (02:40→23:52)
[2018-03-08] MEDS: OMEPRAZOLE CAP 20 MG CAP PO SCH (06:09)
--- NOTE | 2018-03-08 07:05 | RAD ---
EXAM: AP CHEST RADIOGRAPH CLINICAL INDICATION: Respiratory distress. Evaluate pneumonia. Mechanical ventilation. Evaluate lines and tubes. COMPARISON: Compared to yesterday's chest radiograph performed at 0655 hours. FINDINGS: Unchanged large right basilar consolidation and moderate to large right pleural effusion. Unchanged small left pleural effusion. Unchanged sequela of remote heart surgery. No pneumothorax. IMPRESSION: Unchanged chest radiograph. Electronically signed by: Edwin Elise MD 03/08/2018 7:04 AM CDT
[2018-03-08] MEDS ORDERED: SITagliptin 50 MG TAB PO ONE (07:29)
[2018-03-08] MEDS ORDERED: glyBURIDE 5 MG TAB PO ONE ×2 (07:31→15:40)
[2018-03-08] MEDS ORDERED: PIPERACILLIN/TAZOBACTAM 3.375 GM VIAL IVPB ONE ×3 (07:32→19:40)
[2018-03-08] MEDS: INSULIN LISPRO 100 UNITS/ML PEN SUBCU SCH ×4 (07:42→20:47)
[2018-03-08] MEDS: glyBURIDE 5 MG TAB PO SCH ×2 (08:06→16:36)
[2018-03-08] MEDS: metFORMIN HCL 500 MG TAB PO SCH (08:06)
[2018-03-08] MEDS: METOPROLOL TARTRATE 25 MG TAB PO SCH ×2 (08:06→17:10)
[2018-03-08] MEDS: IPRATROPIUM/ALBUTEROL 3 ML VIAL NEB SCH ×4 (08:21→20:53)
[2018-03-08] MEDS: ASPIRIN TABLET 325 MG TAB PO SCH (08:59)
[2018-03-08] MEDS: GABAPENTIN 100 MG CAP PO SCH ×3 (09:00→20:47)
[2018-03-08] MEDS: DUTASTERIDE 0.5 MG CAP PO SCH (09:00)
[2018-03-08] MEDS: DONEPEZIL HCL 5 MG TAB PO SCH (09:00)
[2018-03-08] MEDS: TAMSULOSIN 0.4 MG CAP PO SCH (09:00)
[2018-03-08] MEDS: BIFIDOBACTERIUM INFANTIS 4 MG CAP PO SCH ×2 (09:00→20:47)
[2018-03-08] MEDS: ASCORBIC ACID 500 MG TAB PO SCH (09:00)
[2018-03-08] MEDS: CITALOPRAM HBR 20 MG TAB PO SCH (09:00)
[2018-03-08] MEDS: SITagliptin 50 MG TAB PO SCH (09:00)
[2018-03-08] MEDS: MULTIPLE VITAMINS W/ MINERALS 1 EA TAB PO SCH (09:00)
[2018-03-08] MEDS: guaiFENesin ER TAB 600 MG TAB PO SCH ×2 (09:00→20:47)
[2018-03-08] MEDS: SODIUM CHLORIDE 0.9% (FLUSH) 10 ML SYG IV SCH ×2 (09:01→20:46)
[2018-03-08] MEDS ORDERED: SODIUM CHLORIDE 0.9% 250ML 250 ML ONE (09:33)
[2018-03-08] MEDS ORDERED: VANCOMYCIN HCL INJ 1,000 MG VIAL IVPB ONE (09:33)
[2018-03-08] MEDS: ACETAMINOPHEN 325 MG TAB PO PRN (09:45)
[2018-03-08] MEDS: VANCOMYCIN HCL INJ 1,000 MG in SODIUM CHLORIDE 0.9% 250ML 250 ML IVPB SCH (09:46)
[2018-03-08] MEDS ORDERED: POTASSIUM CHLORIDE 20 MEQ TAB PO ONE (10:30)
[2018-03-08] MEDS ORDERED: WARFARIN SODIUM 5 MG TAB ONE (11:16)
[2018-03-08] MEDS ORDERED: FUROSEMIDE INJ 100 MG/10 ML VIAL ONE ×4 (11:16→23:20)
[2018-03-08] MEDS ORDERED: WARFARIN SODIUM 2.5 MG TAB ONE (11:16)
[2018-03-08] MEDS: WARFARIN SODIUM 5 MG, WARFARIN SODIUM 2.5 MG PO SCH ×2 (11:35)
[2018-03-08] MEDS: POTASSIUM CHLORIDE 20 MEQ TAB PO SCH (17:10)
[2018-03-08] MEDS: ATORVASTATIN 20 MG TAB PO SCH (20:46)
[2018-03-08] MEDS: levETIRAcetam 250 MG TAB PO SCH (20:47)
[2018-03-08] MEDS: ALPRAZolam 0.5 MG TAB PO SCH (20:47)
--- NOTE | 2018-03-08 21:16 | PN ---
DATE: 03/08/18 SUPERVISING PHYSICIAN: Felice Allen M.D. SUBJECTIVE: The patient is in his chair. He has been progressive with his physical therapy today. He is alert. He has had no chest pains. No recurrence of his diarrhea. He notes that he is feeling much better today. He would estimate about 80% compared to the last 48 hours. I did discuss at length discharge planning in efforts to possibly get him to a LTAC in [place] for continued management of his antibiotics and congestive heart failure. The is in agreement with this and [facility] has been contacted by Yolande. The feels like that they are okay with this, except she wants to talk with the rest of her family and will let us know tomorrow how everything is progressing. OBJECTIVE: VITAL SIGNS: He remains afebrile with temperature 97, pulse 102, blood pressure 116/71, respirations 16, satting 98% on 2 liters nasal cannula. I's and O's continue to show a good response to his Lasix drip with 3930 deficit with 2070 in and 6000 out. Weight is down to 104.1 kg compared to admission of 113 kg. GENERAL: The patient appears chronically ill but shows improvement. He is alert, visiting with his family and shows to be in no distress. CHEST: Lungs are fairly clear, just with some mild rhonchi heard on the posterior aspect but no wheezing, but notably diminished towards the bases bilaterally. HEART: Slightly irregular rate and rhythm with a controlled ventricular rate as noted on cardiac bedside monitor. GASTROINTESTINAL: Continues to show some ascites but improved from previous days with no edema to the abdomen with scrotal edema still present, but much improved. No abdominal pains. No rebound tenderness. Bowel sounds are positive. EXTREMITIES: He has on his left lower leg areas of cellulitis and a skin tear that has shown great improvement with no obvious weeping today and notable decrease in erythema. Edema is noted bilaterally but down to 1+. NEUROLOGIC: He is alert and oriented times three. LABORATORY: White count 9,800, hemoglobin 8.9, hematocrit 29.6 with RBC indices showing a microcytic/hypochromic presentation with the patient showing to be without a left shift. Current platelet count is 283,000. Coagulation studies: PT was up to 27.8 with INR 2.42. Chemistries showed an elevated sodium of 146 with potassium 3.3, carbon dioxide 34, BUN 28, creatinine 0.8. Glucoses have been between 107 and 215. Liver functions just show a slightly elevated bilirubin at 1.4, otherwise within normal limits. Magnesium was at 2.2 , calcium 9.3. He had a vancomycin trough yesterday that was 12.3. MICROBIOLOGY: He had 1 blood culture that showed Pseudomonas aeruginosa. Please see that report for full sensitivity. All other blood cultures remained negative after 5 days. Stool culture is finalized showing normal enteric hair recovered. Please see those reports for full details. RADIOLOGY: Repeat chest x-ray today per radiology interpretation of a single view chest shows unchanged chest radiograph compared to previous exams. Still noted to be a right basilar consolidation and a moderate to large pleural effusion on the right, unchanged left small pleural effusion. There is no pneumothorax. ASSESSMENT: 1. Bacteremia with sepsis secondary to urinary tract infection with culture showing Enterococcus species as well as pneumonia, most likely healthcare acquired. Blood culture shows Pseudomonas aeruginosa. 2. Urinary tract infection secondary to Enterococcus. 3. Bilateral pneumonia, healthcare acquired, with Pseudomonas being identified from the blood cultures. 4. Congestive heart failure with exacerbation and anasarca secondary to poor medical compliance. 5. Cellulitis of the left lower leg secondary to chronic edema with the patient being on vancomycin continually. 6. Hyperkalemia. Continue to monitor. 7. Atrial fibrillation on warfarin therapy with controlled ventricular rate and a therapeutic INR. 8. Hypoalbuminemia likely contributing to his third spacing showing some improvement with albumin infusions. 9. Microcytic/hypochromic anemia with hemoglobin showing to be stable at 8.9 likely secondary to chronic illness. 10. Significantly decreased mobility with severe deconditioning secondary to ongoing illness. PLAN: Will continue his antibiotics at this point with Zosyn and vancomycin. I did talk to Dr. Albarran today and he recommended we stay with the Lasix drip which is running at 125 mg an hour for an additional 24 hours. He was also seen in consultation by Dr. Gonzalez who also recommended continuation of current plan with Lasix until his creatinine shows some elevation or he continues to show clinical improvement. Will continue to replace potassium as needed and monitor laboratory, including a BNP in the morning. I did discuss again with the patient's family about a LTAC in [place] at [facility]. They are currently considering this as well as a discussion has been started with [facility] through Yolande who reports that the patient does look like he meets criteria for photo finisher acute care admission. Will continue with Lasix for an additional 24 hours and reassess in the morning. Until discharge, whether it would be back to [facility], [facility] or LTAC, will continue to monitor and treat appropriately. #[id number] [facility]
[2018-03-08] MEDS: TEMAZEPAM 15 MG CAP PO PRN (21:52)
[2018-03-08] MEDS: diphenhydrAMINE HCL 25 MG CAP PO PRN (22:46)
[2018-03-09] MEDS: PIPERACILLIN/TAZOBACTAM 3.375 GM in SODIUM CHLORIDE 0.9% 100ML 100 ML IVPB SCH ×2 (00:06→08:23)
[2018-03-09] MEDS ORDERED: FUROSEMIDE INJ 100 MG/10 ML VIAL ONE (03:24)
[2018-03-09] MEDS ORDERED: SODIUM CHLORIDE 0.9% 100ML 100 ML IVPB ONE ×2 (03:24→07:34)
[2018-03-09] MEDS: FUROSEMIDE IV SCH (03:58)
[2018-03-09] MEDS: SODIUM CHLORIDE 0.9% IV SCH (03:58)
[2018-03-09] MEDS: OMEPRAZOLE CAP 20 MG CAP PO SCH (06:13)
[2018-03-09 06:21] VITALS: TEMP 98.2
[2018-03-09] MEDS ORDERED: SODIUM CHLORIDE 0.9% 250ML 250 ML ONE (07:32)
[2018-03-09] MEDS ORDERED: WARFARIN SODIUM 5 MG TAB ONE (07:33)
[2018-03-09] MEDS ORDERED: WARFARIN SODIUM 2.5 MG TAB ONE (07:34)
[2018-03-09] MEDS ORDERED: PIPERACILLIN/TAZOBACTAM 3.375 GM VIAL IVPB ONE (07:34)
[2018-03-09] MEDS ORDERED: VANCOMYCIN HCL INJ 1,000 MG VIAL IVPB ONE (07:34)
[2018-03-09] MEDS: INSULIN LISPRO 100 UNITS/ML PEN SUBCU SCH ×2 (07:48→11:55)
[2018-03-09] MEDS: POTASSIUM CHLORIDE 20 MEQ TAB PO SCH (07:50)
[2018-03-09] MEDS: METOPROLOL TARTRATE 25 MG TAB PO SCH (07:51)
[2018-03-09] MEDS: metFORMIN HCL 500 MG TAB PO SCH (07:51)
[2018-03-09] MEDS ORDERED: glyBURIDE 5 MG TAB PO ONE (07:55)
[2018-03-09] MEDS: glyBURIDE 5 MG TAB PO SCH (07:55)
[2018-03-09] MEDS: TAMSULOSIN 0.4 MG CAP PO SCH (08:28)
[2018-03-09] MEDS: ASCORBIC ACID 500 MG TAB PO SCH (08:28)
[2018-03-09] MEDS: CITALOPRAM HBR 20 MG TAB PO SCH (08:28)
[2018-03-09] MEDS: DUTASTERIDE 0.5 MG CAP PO SCH (08:28)
[2018-03-09] MEDS: MULTIPLE VITAMINS W/ MINERALS 1 EA TAB PO SCH (08:28)
[2018-03-09] MEDS: BIFIDOBACTERIUM INFANTIS 4 MG CAP PO SCH (08:28)
[2018-03-09] MEDS: DONEPEZIL HCL 5 MG TAB PO SCH (08:29)
[2018-03-09] MEDS: ASPIRIN TABLET 325 MG TAB PO SCH (08:29)
[2018-03-09] MEDS: guaiFENesin ER TAB 600 MG TAB PO SCH (08:29)
[2018-03-09] MEDS: GABAPENTIN 100 MG CAP PO SCH (08:29)
[2018-03-09] MEDS: SODIUM CHLORIDE 0.9% (FLUSH) 10 ML SYG IV SCH (08:36)
[2018-03-09] MEDS ORDERED: SITagliptin 50 MG TAB PO ONE (08:41)
[2018-03-09] MEDS: SITagliptin 50 MG TAB PO SCH (08:42)
[2018-03-09] MEDS: IPRATROPIUM/ALBUTEROL 3 ML VIAL NEB SCH ×2 (09:21→13:24)
[2018-03-09] MEDS ORDERED: BUMETANIDE TAB 2 MG TAB PO SCH (09:30)
[2018-03-09] MEDS: VANCOMYCIN HCL INJ 1,000 MG in SODIUM CHLORIDE 0.9% 250ML 250 ML IVPB SCH (09:38)
[2018-03-09 10:34] VITALS: BP 119/86
[2018-03-09] MEDS: WARFARIN SODIUM 5 MG, WARFARIN SODIUM 2.5 MG PO SCH ×2 (11:57)
[2018-03-09 14:15] VITALS: O2SAT 98
--- NOTE | 2018-03-11 11:10 | DS ---
SUPERVISING PHYSICIAN: Felice Allen MD DISCHARGE DIAGNOSIS: 1. Bacteremia with sepsis secondary to urinary tract infection with final culture showing Enterococcus species as well as pneumonia, most likely healthcare acquired with blood culture shows Pseudomonas aeruginosa. 2. Urinary tract infection secondary to Enterococcus. 3. Bilateral pneumonia, healthcare acquired, with Pseudomonas being identified from the blood cultures. 4. Congestive heart failure with exacerbation and anasarca secondary to poor medical compliance, showing good response with Lasix drip. 5. Cellulitis of the left lower leg secondary to chronic edema with the patient being on vancomycin continually, showing good response to treatment prior to discharge. 6. Hypokalemia, secondary to Lasix drip. 7. Atrial fibrillation on warfarin therapy with controlled ventricular rate and a therapeutic INR. 8. Hypoalbuminemia likely contributing to his third spacing showing some improvement with albumin infusions. 9. Microcytic/hypochromic anemia with hemoglobin showing to be stable at 8.9 secondary to chronic illness. 10. Significantly decreased mobility with severe deconditioning secondary to ongoing illness. REASON FOR HOSPITALIZATION: Mr. Zapata is a 77-year-old male patient who currently resides at [facility]. He came to the Emergency Room initially on 02/22/18 complaining of shortness of breath which had worsened over the 30 days along with generalized edema to bilateral lower extremities. When he presented to the Emergency Room, he was on CPAP with EMS. In the Emergency Room, his workup included a chest x-ray as well as labs. He actually came to the Emergency Room 4 days previously with similar symptoms. At that point, his INR was 4.5, so he was instructed to hold his warfarin for a couple of days. Also, he was found to have some congestive heart failure and they increased his Lasix to 40 mg twice a day for 3 days. That discharge plan did not help, and he came back to the Emergency Room on 02/26/18. He had previously been hospitalized for pneumonia back in December and sent to [facility] for continued rehabilitation. Once he left [facility], he was discharged back to [facility] but they did not resume his Lasix and his states that his swelling has gradually worsened since then. In our Emergency Room, he was noted to have a white count of 25,000 with 15% bands. His INR is 1.9. Arterial blood gas showed a pH of 7.47, PCO2 of 31, PO2 of 389 , bicarb 18.9, base excess of -4.6 with O2 saturation of 100%. Followup ABG really did not show a whole lot of worsening after he was taken off of the BiPAP. His PO2 did go down to 133 but he was on 2 liters via nasal cannula. Chemistry showed a hyperkalemia of 5.6 and creatinine was 1.32. Lactic acid as 7.1, magnesium 1.4, bilirubin 1.8. BNP up to 2390. Albumin down to 2.9. Chest x-ray was consistent with bilateral pleural effusions. right greater than left, with a potential for underlying pneumonia. His urine was cloudy with large leukocyte esterase. He did have 10 to 20 WBCs and 3+ urine bacteria. He also was noted to have cellulitis of the left lower extremity. For all of these reasons, he was referred for admission. At time of examination, the patient had shortness of breath. He was on 2 liters maintaining. He was felt to be stable enough to be admitted to the Medical/Surgical Floor and was admitted in stable condition for further treatment and evaluation. LABORATORY: He had multiple CBCs. His white count showed just mild elevation to 15,000, but improved and prior to discharge was 9,800. He did show a microcytic/hypochromic anemia, but was stable at 8.9 and 29.6 for hemoglobin and hematocrit respectively. Platelet count 283,000. Differential did show a left shift, but it was resolving prior to discharge. Initially, he presented with increased bands of 15%. Coagulation studies showed initial PT on admission nontherapeutic with INR 1.92, PT 21.9, PTT 32.2. Daily PTs were completed and he did become therapeutic. Prior to discharge, his INR was 2.64, PTT 30.3. Blood gas analysis initially showed pH 7.46, PCO2 31, PO2 389, 100% saturation and 89% oxyhemoglobin. That ABG was on BiPAP. After being off BiPAP for 2 hours, repeat showed pH 7.46, PCO2 slightly elevated at 33, but PO2 had gone to 133, saturation still 99% on 2 liter nasal cannula. Multiple chemistries were done throughout his hospitalization. Initially on admission, he showed normal sodium 135, potassium elevated at 5.6, anion gap elevated at 20.6, but carbon dioxide was 21. Initial creatinine was 1.32, calcium initially 8.0, lactic acid was elevated at 7.1 on admission. It did show some trending to baseline at 3.4 after fluids. His liver functions initially on admission showed just a slight elevation of bilirubin at 1.8. Magnesium low at 1.4. Troponin 0.02. Albumin low at 2.9 with BNP 2390. Again, multiple chemistries were completed and were stable in regards to electrolytes as he was on a Lasix drip with his potassium running between 3.2 and 3.33. On date of discharge, potassium was 3.3, sodium 144. Creatinine had gone up to 1.11. Blood sugars remained well controlled between 58 with a few hypoglycemic episodes, however, that improved after medication changes. Range was from 58 to 291. Calcium at discharge was 9.2. Magnesium after replacement normalized and at discharge was 2.2. Total bilirubin remained slightly elevated, but was at 1.4 on 03/08/18 the date before discharge. All other liver functions were within normal limits. Urinalysis initially showed a large amount of blood with large leukocyte esterase. Microscopic showed 5 to 10 RBCs, 10 to 20 WBCs with 1 to 3 epithelials and 3+ bacteria. He had 3 vancomycin troughs while on vancomycin ranging from 12.3 to 20.1. MICROBIOLOGY: Multiple specimens were submitted. He had several different cultures that were positive. Blood culture was positive for Pseudomonas aeruginosa with sensitivity indicating sensitive to all but cefepime and ceftazidime. Please see that culture for full results. He did have a urine culture that showed Enterococcus species group D with sensitivity to vancomycin at 2 MICs and only resistant to ciprofloxacin, levofloxacin and tetracycline. He had one stool culture and final resulted showed normal enteric hair recovered. No pathogenic organisms were identified. Blood cultures remained negative. RADIOLOGY: He had multiple radiographic studies including x-rays of the chest and abdomen. Initial chest x-ray on admission to the Emergency Department per radiologic interpretation showed an increasing density in the lower lung lacey , right greater than left, consistent with moderate bilateral pleural effusion associated with lower lobe atelectasis versus infiltrates, however, unchanged from previous noted on 02/22/18. He then had abdominopelvic CT and per radiologic interpretation, there was note of bilateral pleural effusions, greater on right than left, with moderate volume ascites and multiple bilateral hypodense renal lesions identified. Initial x-rays completed showed right basilar consolidation with moderate large right pleural effusion which essentially remained unchanged prior to discharge. Final x-ray on 03/08/18 were unchanged to previous comparisons. HOSPITAL COURSE: Mr. Zapata was admitted on 02/26/18 in serious condition with elevated lactic acid with concerns for a healthcare acquired pneumonia as well as underlying urinary tract infection. He was started on antibiotics initially on admission of vancomycin and additional antibiotic therapy was Merrem. Once cultures were back, the patients antibiotic coverage was modified to include Levaquin as his Pseudomonas aeruginosa in the blood culture was sensitive to Levaquin and the vancomycin was sensitive on the Enterococcus as well as ampicillin. He showed slow progression and ultimately had to be changed to Zosyn and vancomycin due to slow response to antibiotic therapy. In regards to his ascites and anasarca, he was started on a Lasix drip and remained on the Lasix drip for the majority of the hospitalization, but 3 to 4 days prior to discharge, he was improved and had been stopped and placed on p.o. Lasix which at the time he did not respond to and ultimately had to be placed back on Lasix drip, again responding well. He diuresed well average of about 10 liters and his weight changed significantly from admission of 113.3 kg all the down to 103.3 kg prior to discharge. Dr. Albarran was gracious enough to provide some consultation in regards to treatment of the anasarca, ascites and fluid management along with Dr. Lynn who assisted with further management of antibiotic therapy in regards to the bacteremia and underlying urinary tract infection. The patient did again once back on Lasix show good response. He actually had no lower extremity edema on the morning of discharge, was having good clearance of his lungs and was actually able to participate somewhat in physical therapy and was felt well enough to be discharged to an long-term acute care facility. After a long discussion with the family and the patient, it was felt the best plan was to discharge to [facility], a long-term acute care facility in [place] for continued antibiotic therapy and further consultation with renal, infectious disease as well as nutritional assistance. The patient was accepted in transfer and was stable enough to be transferred via ground ambulance. The Lasix drip on the morning of discharge was stopped and he was started on 2 mg of Bumex daily. All culture results again were completed and he was treated appropriately with the antibiotics based on response and sensitivities. He did have multiple infusions of albumin which did assist in decreasing his third spacing and helping with his diuresis. He remained hemodynamically stable with controlled ventricular rate. Initially on admission, his INR was nontherapeutic, but it became therapeutic and remained therapeutic through his entire hospitalization after admission. After visiting with [facility], the family and the patient, arrangements were made for the patient to be transferred to [facility] in [place]. PLAN: The patient is to be discharged to [facility] [place], long-term acute care facility in [place]. Dr. Albarran and Dr. Lynn were both notified of the patient's transfer and will consult once the patient arrives at [facility]. He was to continue with Zosyn extended infusion and vancomycin per pharmacy protocol until seen in consultation at [facility] [place] [facility]. All copies of his imaging studies, all his labs were sent in transfer. Diet at discharge was diabetic diet with fluid restriction of less than 1500 mL a day. Activity per physical therapy at [facility] [place] [facility]. A list of his home medications that were resumed was provided at time of discharge. His primary care physician is Dr. Cardenas who he will need to followup with once discharged from [facility]. At time of discharge, the patient was guarded, but stable and showing improving in his medical status. #[id number] [facility]
== END 2018-03-09 15:15 | DRG 698 ==
LOC: ER 10:24 → MS 15:35
PROVIDERS: ADMIT Nurse Practitioner; ATTEND Nurse Practitioner Family
DX: T83.511A Infection and inflammatory reaction due to indwelling urethral catheter, initial encounter (principal); A41.9 Sepsis, unspecified organism; L03.116 Cellulitis of left lower limb; R65.20 Severe sepsis without septic shock; J18.9 Pneumonia, unspecified organism; N17.9 Acute kidney failure, unspecified; E46 Unspecified protein-calorie malnutrition; I11.0 Hypertensive heart disease with heart failure; N39.0 Urinary tract infection, site not specified; E87.5 Hyperkalemia; I50.9 Heart failure, unspecified; I25.10 Atherosclerotic heart disease of native coronary artery without angina pectoris; E11.51 Type 2 diabetes mellitus with diabetic peripheral angiopathy without gangrene; I48.91 Unspecified atrial fibrillation; E78.5 Hyperlipidemia, unspecified; K21.9 Gastro-esophageal reflux disease without esophagitis; F03.90 Unspecified dementia, unspecified severity, without behavioral disturbance, psychotic disturbance, mood disturbance, and anxiety; F32.9 Major depressive disorder, single episode, unspecified; E66.9 Obesity, unspecified; Y95 Nosocomial condition; E83.42 Hypomagnesemia; E88.09 Other disorders of plasma-protein metabolism, not elsewhere classified; R09.02 Hypoxemia; B96.5 Pseudomonas (aeruginosa) (mallei) (pseudomallei) as the cause of diseases classified elsewhere; B95.2 Enterococcus as the cause of diseases classified elsewhere; D63.8 Anemia in other chronic diseases classified elsewhere; E87.6 Hypokalemia; I87.2 Venous insufficiency (chronic) (peripheral); Z79.01 Long term (current) use of anticoagulants; Y92.129 Unspecified place in nursing home as the place of occurrence of the external cause; Z86.73 Personal history of transient ischemic attack (TIA), and cerebral infarction without residual deficits; Z95.820 Peripheral vascular angioplasty status with implants and grafts; Z85.51 Personal history of malignant neoplasm of bladder; Z95.1 Presence of aortocoronary bypass graft; Z95.2 Presence of prosthetic heart valve; Z79.82 Long term (current) use of aspirin; Z79.4 Long term (current) use of insulin; Z87.891 Personal history of nicotine dependence; Z91.19 Patient's noncompliance with other medical treatment and regimen; Z68.36 Body mass index [BMI] 36.0-36.9, adult

== ENCOUNTER 2018-05-30 17:55 | Emergency (ER) | payer MEDICARE ==
[2018-05-30] MEDS ORDERED: FUROSEMIDE INJ 40 MG/4 ML VIAL IV ONE (18:34)
--- NOTE | 2018-05-30 18:52 | RAD ---
EXAM DESCRIPTION: Chest,1 View CLINICAL HISTORY:78 years Male, sob, hypoxia Comparison: March 08, 2018 FINDINGS: Large right and small left pleural effusions with left basilar and right lung opacities representing atelectasis, pulmonary edema or pneumonia. Findings worsened from prior study. Enlarged cardiac silhouette, similar to prior. No pneumothorax. Electronically signed by: Salazar Cárdenas MD 05/30/2018 6:51 PM CDT
[2018-05-30] MEDS ORDERED: LIDOCAINE 1% 50 ML VIAL INJ ONE (20:00)
[2018-05-30] MEDS ORDERED: FLUCONAZOLE 100 MG TAB PO ONE (20:03)
[2018-05-30] MEDS ORDERED: METOPROLOL TARTRATE 25 MG TAB PO ONE (20:23)
--- NOTE | 2018-05-30 21:14 | RAD ---
EXAM DESCRIPTION: Chest,1 View CLINICAL HISTORY:78 years Male, sob, edema Comparison: May 30, 2018 at 6:29 PM FINDINGS: Small left and moderate right pleural effusion with bibasilar opacities representing atelectasis or pneumonia. Improved aeration of the lungs compared to prior which may be positional. Cardiac silhouette is prominent, unchanged. Electronically signed by: Salazar Cárdenas MD 05/30/2018 9:13 PM CDT
[2018-05-30] MEDS ORDERED: CEFEPIME 1 GM in SODIUM CHLORIDE 0.9% 50ML 50 ML IVPB ONE (21:41)
[2018-05-30] MEDS ORDERED: CEFEPIME 2 GM VIAL ONE (21:44)
[2018-05-30] MEDS ORDERED: SODIUM CHLORIDE 0.9% 50ML 50 ML ONE (21:44)
[2018-05-30 21:58] VITALS: TEMP 97.1; O2SAT 97
--- NOTE | 2018-05-30 22:03 | ED.PDOC ---
History of Present Illness - General Chief Complaint: Respiratory Problem Stated Complaint: shortness of breath Time Seen by Provider: 05/30/18 17:57 Source: family Exam Limitations: clinical condition - History of Present Illness Initial Comments: the patient is a 78-year-old male presented to emergency room secondary to shortness of breath. The patient was transferred from a rehabilitation facility in [place] to a long-term care facility here in [place] earlier today. Upon arrival even with his 2 L of oxygen he was desaturating down into the low 80s. He does have a heart rate up in the 120s and 130s. He was in significant respiratory distress which did improve some with the supplementation of oxygen but was made significantly worse with any activity or with lying back flat. The patient has not had any fevers. He has had an increase in production in sputum over the last couple of days. He has had some increased swelling over the last couple of days. No chest pain according to him however he is a very poor historian due to his dementia. Over the past several months the patient has had sepsis from urinary tract infection as well as a pseudomonal pneumonia. Additionally he has had significant cellulitis to the lower extremities and has received fairly long-term IV antibiotic therapy for that. He has required fairly aggressive diuresis in the past for his CHF and Dr. Albarran has been consulted for his renal function during that diuresis. His acetone button paster is Dr. Gonzalez. He does have a history of atrial fibrillation. He does take a beta mohan and Coumadin. I find no evidence of any other arrhythmia in the paperwork here and his knows of no other arrhythmia. The tachycardia is apparently a new issue. Upon arrival here the patient is in significant respiratory distress. Additionally limited monitoring and EKG confirmed that the patient is having rhythm changes into a wide complex tachycardia at a rate of 133 bpm that is regular. He seems to be asymptomatic during these periods and they do last up to a couple of minutes in length. This other arrhythmia does not appear to drop his blood pressure. He spontaneously cardioverts back to atrial fibrillation with rapid ventricular rate at about the same rate but of course irregular. The patient has had a gradual deterioration over the last couple of months. His has agreed to a DNR here this evening. He does have a very poor quality of life and he does have numerous severe medical problems including his Congestive heart failure, lower extremity cellulitis, chronic renal insufficiency, advancing dementia, anxiety and depression, diabetes, gastroesophageal reflux disease, COPD, BPH, coronary artery disease and peripheral vascular disease. Laboratory work in general here today shows a urinary tract infection associated with his chronic indwelling Stanley catheter for which a culture will be performed, and some acute renal insufficiency that is worse than previous. INR is 3.9. No definite evidence of infection otherwise. Initial chest x-ray shows a very large right- sided effusion severely limiting his pulmonary capacity on that side as well as a mild to moderate effusion on the left. Given the patient's respiratory difficulty and arrhythmia the decision was made to perform an emergency thoracentesis for therapeutic purposes on the right side. Risk and benefits were explained to his who did agree to proceed. The patient was sat upright and a area was prepped sterilely. An 18-gauge needle was inserted immediately above the rib to the right mid lower thoracic area. This was done after auscultation. Approximately 1 L of serous fluid was obtained. Laboratory studies have been sent but will not be back until at least later tomorrow. There does not appear to clinically be any empyema. The patient tolerated the procedure well. Repeat chest x-ray shows improvement of lung aeration on the right but still some significant effusion at the base. Thoracentesis was stopped at 1 L to prevent reexpansion pulmonary edema. Timing/Duration: unsure Severity: severe Improving Factors: nothing Worsening Factors: other - lying back flat in any activity Associated Symptoms: malaise, shortness of breath Allergies/Adverse Reactions: Allergies Lisinopril Adverse Reaction (Verified 05/30/18 19:13) Home Medications: Ambulatory Orders Ascorbic Acid [Vitamin C] 500 mg PO DAILY 12/25/17 Aspirin 325 mg PO QD 12/25/17 Atorvastatin Calcium [Lipitor] 40 mg PO BEDTIME 12/25/17 Bupropion HCl [Bupropion HCl Sr] 150 mg PO DAILY 12/25/17 Citalopram Hydrobromide [Celexa] 10 mg PO DAILY 12/25/17 Coenzyme Q10 (Ubidecarenone) [Coenzyme Q10] 100 mg PO DAILY 12/25/17 Donepezil HCl [Aricept] 5 mg PO DAILY 12/25/17 Metformin HCl 500 mg PO DAILY 12/25/17 Metoprolol Tartrate 25 mg PO BID 12/25/17 Multiple Vitamins W/ Minerals [Centrum Silver] 1 tablet PO DAILY 12/25/17 Queen-3 Fatty Acids [Fish Oil 1000 mg] 1 cap PO DAILY 12/25/17 Pantoprazole Tablet [Protonix] 40 mg PO DAILY 12/25/17 Sitagliptin Phosphate [Januvia] 100 mg PO DAILY 12/25/17 Tamsulosin HCl [Flomax] 0.4 mg PO DAILY 12/25/17 Warfarin Sodium 5 mg PO .SASU 12/25/17 glyBURIDE [Diabeta] 5 mg PO BID 12/25/17 ALPRAZolam [Xanax] 0.5 mg PO BEDTIME 12/26/17 Dutasteride [Avodart] 0.5 mg PO DAILY #30 cap 12/29/17 Acetaminophen [Tylenol] 1 - 2 mg PO PRN 02/26/18 Albuterol Sulfate Nebs [Proventil Nebs] 2.5 mg INH Q4H PRN 02/26/18 Diphenhydramine-Acetaminophen [Acetaminophen/Diphenhydra 25-500 mg] 1 tab PO BEDTIME PRN 02/26/18 Lactobacillus [Acidophilus Lactobacilli] 1 cap PO TID 02/26/18 Levetiracetam [Keppra] 500 mg PO BEDTIME 02/26/18 Magnesium Hydroxide [Milk Of Magnesia] 30 ml PO PRN 02/26/18 Ondansetron [Zofran Odt] 4 mg PO PRN 02/26/18 Bifidobacterium Infantis [Align] 4 mg PO BID cap 03/09/18 Bumetanide [Bumex] 2 mg PO DAILY tab 03/09/18 Gabapentin [Neurontin] 100 mg PO TID cap 03/09/18 Insulin Lispro [Humalog] 0 units SUBCU ACHS pen 03/09/18 Ipratropium/Albuterol [Duoneb] 3 ml NEB RTQID vial 03/09/18 Potassium Chloride Tab [K-Dur] 40 meq PO BIDFD tab 03/09/18 Candesartan Cilexetil 4 mg PO BID 05/30/18 Carvedilol 3.125 mg PO BID 05/30/18 Ferrous Sulfate 325 mg PO DAILY 05/30/18 Nitrofurantoin Macrocrystal [Nitrofurantoin Macrocryst] 100 mg PO Q6H 05/30/18 Omeprazole 20 mg PO DAILY 05/30/18 Protein [Beneprotein] 6 gm PO TID 05/30/18 Simvastatin 40 mg PO BEDTIME 05/30/18 Review of Systems - Review of Systems Constitutional: States: malaise, weakness EENTM: States: no symptoms reported Respiratory: States: cough, orthopnea, short of breath Cardiology: States: edema Gastrointestinal/Abdominal: States: no symptoms reported Genitourinary: States: no symptoms reported Musculoskeletal: States: no symptoms reported Skin: States: no symptoms reported Neurological: States: see HPI Endocrine: States: no symptoms reported All other Systems: No Change from Baseline Past Medical History (General) - Patient Medical History Hx Seizures: No Hx Stroke: No Hx Asthma: No Hx of COPD: Yes Hx Cardiac Disorders: Yes - hyperlipidemia; PVD Hx Congestive Heart Failure: Yes Hx Pacemaker: No Hx Hypertension: Yes Hx Diabetes: Yes Hx Gastroesophageal Reflux: Yes Hx Cancer: Yes - Bladder Hx MRSA: No - Vaccination History Hx Influenza Vaccination: Yes - 2017 Hx Pneumococcal Vaccination: - unknown - Social History Hx Tobacco Use: No Hx Alcohol Use: No Hx Substance Use: No Hx Physical Abuse: No Hx Emotional Abuse: No - Activities of Daily Living Halfway/Assisted Living (if applicable):: [employer] Family Medical History - Family History Father Family History: Unknown Living Status: Hx Family;Other: dementia Mother Living Status: Hx Family;Other: cancer of arm Physical Exam - Physical Exam General Appearance: Alert, Obvious distress Eye Exam: bilateral normal Ears, Nose, Throat: hearing grossly normal, normal pharynx Neck: full range of motion, supple Respiratory: chest non-tender, decreased breath sounds, accessory muscle use, crackles, rales, rhonchi, other - decreased breath sounds in the right lower lung Cardiovascular/Chest: tachycardia, irregularly irregular Peripheral Pulses: radial,right: 2+, radial,left: 2+ Gastrointestinal/Abdominal: non tender, soft Rectal Exam: deferred Back Exam: no CVA tenderness, no vertebral tenderness Extremity: non-tender, normal inspection, normal capillary refill, pedal edema - the patient has general anasarca, swelling 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, alert, other - he does have significant dementia and is a little more confused than normal according to his Skin Exam: pallor Comments: Vital Signs - 24 hr 05/30/18 05/30/18 05/30/18 17:55 18:27 19:04 Temperature 98.4 F 98 F Pulse Rate Pulse Rate [ 115 H 135 H Apical] Respiratory 34 H 34 H Rate Blood Pressure 114/70 121/73 [Left Arm] O2 Sat by Pulse 86 L 95 98 Oximetry 05/30/18 05/30/18 05/30/18 19:11 19:52 20:00 Temperature 98 F Pulse Rate 133 H Pulse Rate [ 133 H 132 H 130 H Apical] Respiratory 20 20 20 Rate Blood Pressure 120/73 112/85 [Left Arm] O2 Sat by Pulse 97 96 Oximetry 05/30/18 05/30/18 05/30/18 20:30 20:48 21:10 Temperature Pulse Rate 133 H 133 H 133 H Pulse Rate [ 125 H 130 H 128 H Apical] Respiratory 20 20 20 Rate Blood Pressure 85/58 102/70 108/75 [Left Arm] O2 Sat by Pulse 96 98 98 Oximetry 05/30/18 21:56 Temperature 97.1 F L Pulse Rate 122 H Pulse Rate [ 120 H Apical] Respiratory 20 Rate Blood Pressure 100/69 [Left Arm] O2 Sat by Pulse 97 Oximetry Progress - Progress Progress: 05/30/18 22:06 the patient's a 78-year-old male with significant dementia and generalized deterioration over the last's months. He presents tonight in respiratory distress secondary to obvious overt fluid overload. Therapeutic thoracentesis was performed withdrawing approximately 1000 cc from the right chest. Clinically this appears to be transudative in nature. Laboratory work on this is still pending. The patient does have a urinary tract infection associated with his indwelling Stanley catheter and has received a dose of cefepime here. A urine culture is being performed. He was R knee on Macrobid from the shelter. The patient is oxygenating better at 3 L on the nasal cannula and breathing much more easily after the thoracentesis. The patient is being transferred for higher level of care secondary to the CHF exacerbation in combination with the worsening renal failure and the wide complex tachycardia that is currently frequently being seen with this patient. Transferred for higher level of care. He did receive 1 dose of oral metoprolol in attempt to help slow his rhythm however this has not done much. 05/30/18 22:09 critical care time spent in management of this patient in respiratory distress excluding otherwise billable procedures and including family counseling time as well as arrangements for transfer of care for higher level is 40 minutes. - Results/Orders Results/Orders: 05/30/18 URINE CULTURE W/COLONY COUNT Stat 05/30/18 18:22 BLOOD CULTURE Stat SPUTUM CULTURE Stat 05/30/18 18:23 Telemetry .CONTINUOUS 05/30/18 18:30 EKG STAT 05/30/18 20:20 PH,PLEURAL FLUID Routine PLEURAL FLUID CELL COUNT Routine BODY FLUID CULTURE Routine GLUCOSE,PLEURAL FLUID Routine LD,PLEURAL FLUID Routine TOTAL PROTEIN, PLEURAL FLUID Routine 05/30/18 21:41 Cefepime [Maxipime] 1 gm Sodium Chloride 0.9% 50Ml [NS 50ml] 50 ml IVPB ONCE 05/31/18 09:00 Oxygen Daily Laboratory Results - last 24 hr 05/30/18 05/30/18 05/30/18 18:22 18:22 18:22 WBC 7.0 RBC 4.74 Hgb 12.2 L Hct 40.4 L MCV 85.2 MCH 25.7 L MCHC 30.2 L RDW 21.8 H Plt Count 199 MPV 11.3 H Absolute Neuts (auto) 5.90 Absolute Lymphs (auto) 0.60 L Absolute Monos (auto) 0.60 Absolute Eos (auto) 0.00 Absolute Basos (auto) 0.00 Neutrophils % 83.2 H Lymphocytes % 8.0 L Monocytes % 8.7 Eosinophils % 0.1 L Basophils % 0.0 PT INR PTT (SP) Sodium Potassium Chloride Carbon Dioxide Anion Gap BUN Creatinine BUN/Creatinine Ratio Random Glucose Serum Osmolality Lactic Acid 1.4 Calcium Magnesium 2.0 Total Bilirubin AST ALT Alkaline Phosphatase Creatine Kinase 9 L CK-MB (CK-2) 1.7 CK-MB (CK-2) % Not Reportable Troponin I 0.28 H* B-Natriuretic Peptide 1540.0 H* Serum Total Protein Albumin Globulin Albumin/Globulin Ratio TSH 0.91 Urine Color Urine Appearance Urine pH Ur Specific [place] Urine Protein Urine Glucose (UA) Urine Ketones Urine Blood Urine Nitrite Urine Bilirubin Urine Urobilinogen Ur Leukocyte Esterase Urine RBC Urine WBC Ur Epithelial Cells Amorphous Sediment Urine Bacteria Urine Yeast 05/30/18 05/30/18 05/30/18 18:22 Unknown Unknown WBC RBC Hgb Hct MCV MCH MCHC RDW Plt Count MPV Absolute Neuts (auto) Absolute Lymphs (auto) Absolute Monos (auto) Absolute Eos (auto) Absolute Basos (auto) Neutrophils % Lymphocytes % Monocytes % Eosinophils % Basophils % PT 39.3 H* INR 3.98 H* PTT (SP) 39.4 H Sodium 140 Potassium 4.5 Chloride 98 L Carbon Dioxide 34 H Anion Gap 12.5 BUN 42 H Creatinine 1.60 H BUN/Creatinine Ratio 26.3 H Random Glucose 192 H Serum Osmolality 295.1 H Lactic Acid Calcium 8.8 Magnesium Total Bilirubin 1.5 H AST 12 ALT 12 Alkaline Phosphatase 63 Creatine Kinase CK-MB (CK-2) CK-MB (CK-2) % Troponin I B-Natriuretic Peptide Serum Total Protein 7.0 Albumin 3.0 L Globulin 4.0 H Albumin/Globulin Ratio 0.8 L TSH Urine Color Yellow Urine Appearance Cloudy Urine pH 5.5 Ur Specific [place] 1.015 Urine Protein Trace Urine Glucose (UA) Negative Urine Ketones Negative Urine Blood Large H Urine Nitrite Negative Urine Bilirubin Negative Urine Urobilinogen 0.2 Ur Leukocyte Esterase Moderate H Urine RBC Tntc H Urine WBC Tntc H Ur Epithelial Cells Obscured by rbc's Amorphous Sediment 4+ Urine Bacteria 2+ H Urine Yeast 4+ budding several EKGs were performed with at least one showing a typical changes in his rhythm. The patient is primarily in atrial fibrillation with rapid ventricular rate at a rate of approximately 130 bpm. 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 No definitive acute ST segment changes concerning for immediate ischemia however. Corrected QT interval is around 470. He does have poor R-wave progression in anterior leads. The complex regular rhythm pacer rate of about 133 bpm. Again he is essentially asymptomatic when he is in this rhythm in comparison to the general atrial fibrillation.. Chest x-ray shows significant pleural effusions. Cardiomegaly. No evidence of pneumothorax after the thoracentesis. Departure - Departure Clinical Impression: Wide-complex tachycardia, Respiratory distress Acute exacerbation of congestive heart failure Qualifiers: Heart failure type: combined systolic and diastolic Qualified Code(s): I50.43 - Acute on chronic combined systolic (congestive) and diastolic (congestive) heart failure Urinary tract infection associated with catheterization of urinary tract Qualifiers: Indwelling urinary catheter type: indwelling urethral catheter Encounter type: initial encounter Qualified Code(s): T83.511A - Infection and inflammatory reaction due to indwelling urethral catheter, initial encounter; N39.0 - Urinary tract infection, site not specified; N39.0 - Urinary tract infection, site not specified Disposition: Transfer to Hospital Referrals: Pawel Cardenas MD [Primary Care Provider] - 1-2 Weeks Home Medications: Ambulatory Orders Ascorbic Acid [Vitamin C] 500 mg PO DAILY 12/25/17 Aspirin 325 mg PO QD 12/25/17 Atorvastatin Calcium [Lipitor] 40 mg PO BEDTIME 12/25/17 Bupropion HCl [Bupropion HCl Sr] 150 mg PO DAILY 12/25/17 Citalopram Hydrobromide [Celexa] 10 mg PO DAILY 12/25/17 Coenzyme Q10 (Ubidecarenone) [Coenzyme Q10] 100 mg PO DAILY 12/25/17 Donepezil HCl [Aricept] 5 mg PO DAILY 12/25/17 Metformin HCl 500 mg PO DAILY 12/25/17 Metoprolol Tartrate 25 mg PO BID 12/25/17 Multiple Vitamins W/ Minerals [Centrum Silver] 1 tablet PO DAILY 12/25/17 Queen-3 Fatty Acids [Fish Oil 1000 mg] 1 cap PO DAILY 12/25/17 Pantoprazole Tablet [Protonix] 40 mg PO DAILY 12/25/17 Sitagliptin Phosphate [Januvia] 100 mg PO DAILY 12/25/17 Tamsulosin HCl [Flomax] 0.4 mg PO DAILY 12/25/17 Warfarin Sodium 5 mg PO .SASU 12/25/17 glyBURIDE [Diabeta] 5 mg PO BID 12/25/17 ALPRAZolam [Xanax] 0.5 mg PO BEDTIME 12/26/17 Dutasteride [Avodart] 0.5 mg PO DAILY #30 cap 12/29/17 Acetaminophen [Tylenol] 1 - 2 mg PO PRN 02/26/18 Albuterol Sulfate Nebs [Proventil Nebs] 2.5 mg INH Q4H PRN 02/26/18 Diphenhydramine-Acetaminophen [Acetaminophen/Diphenhydra 25-500 mg] 1 tab PO BEDTIME PRN 02/26/18 Lactobacillus [Acidophilus Lactobacilli] 1 cap PO TID 02/26/18 Levetiracetam [Keppra] 500 mg PO BEDTIME 02/26/18 Magnesium Hydroxide [Milk Of Magnesia] 30 ml PO PRN 02/26/18 Ondansetron [Zofran Odt] 4 mg PO PRN 02/26/18 Bifidobacterium Infantis [Align] 4 mg PO BID cap 03/09/18 Bumetanide [Bumex] 2 mg PO DAILY tab 03/09/18 Gabapentin [Neurontin] 100 mg PO TID cap 03/09/18 Insulin Lispro [Humalog] 0 units SUBCU ACHS pen 03/09/18 Ipratropium/Albuterol [Duoneb] 3 ml NEB RTQID vial 03/09/18 Potassium Chloride Tab [K-Dur] 40 meq PO BIDFD tab 03/09/18 Candesartan Cilexetil 4 mg PO BID 05/30/18 Carvedilol 3.125 mg PO BID 05/30/18 Ferrous Sulfate 325 mg PO DAILY 05/30/18 Nitrofurantoin Macrocrystal [Nitrofurantoin Macrocryst] 100 mg PO Q6H 05/30/18 Omeprazole 20 mg PO DAILY 05/30/18 Protein [Beneprotein] 6 gm PO TID 05/30/18 Simvastatin 40 mg PO BEDTIME 05/30/18 Transfer to Outside Facility - Transfer Information Accepting Provider:: dr davis Accepting Facility: [facility] Reason for Transfer: required specialist not available
[2018-05-30 22:56] VITALS: BP 101/70
== END 2018-05-30 22:30 | disposition short-term general hospital (02) ==
LOC: ER 17:55
DX: R06.03 Acute respiratory distress (principal); I50.43 Acute on chronic combined systolic (congestive) and diastolic (congestive) heart failure; R00.0 Tachycardia, unspecified; T83.511A Infection and inflammatory reaction due to indwelling urethral catheter, initial encounter; N39.0 Urinary tract infection, site not specified; I48.91 Unspecified atrial fibrillation; I45.2 Bifascicular block; F03.90 Unspecified dementia, unspecified severity, without behavioral disturbance, psychotic disturbance, mood disturbance, and anxiety; J44.9 Chronic obstructive pulmonary disease, unspecified; E78.5 Hyperlipidemia, unspecified; I11.0 Hypertensive heart disease with heart failure; K21.9 Gastro-esophageal reflux disease without esophagitis; Z85.51 Personal history of malignant neoplasm of bladder; Z79.4 Long term (current) use of insulin; Z79.899 Other long term (current) drug therapy; Z79.01 Long term (current) use of anticoagulants; Z79.82 Long term (current) use of aspirin; Z88.8 Allergy status to other drugs, medicaments and biological substances
CPT/HCPCS: 36415; 71045; 80053; 81001; 82550; 82553; 83605; 83615; 83735; 83880; 84157; 84443; 84484; 85025; 85610; 85730; 87040; 87070; 89051; 93005; A4216; J0692; J1940